=== PATIENT | male | born 1950 | race Caucasian/White ===

== ENCOUNTER 2021-10-05 17:25 | Observation (INO) | payer OTHER, SELFPAY ==
[2021-10-05] VITALS (10 sets, daily range): BP systolic 137–189; BP diastolic 70–95; PULSE 68–84; RESP 15–17; TEMP 36.6; O2SAT 97–100
--- NOTE | ~2021-10-05 | XR_ITS ---
XR chest 2V DATE: 10/05/2021 18:03 INDICATION: Feeling off for one week. Hypertension. History of heart attack, CABG. TECHNIQUE: PA and lateral views COMPARISON: 02/15/2004 PA and lateral chest FINDINGS: Status post sternotomy and aortic valve replacement. Normal heart size. There is aortic arc h calcification as well as calcification of the descending thoracic aorta. Moderate bilateral hyperinflation. No pulmonary infiltrate or consolidation, pleural effusion or pulm onary vascular congestion or pneumothorax. No hilar or mediastinal enlargement. Degenerative spurring mild scoliosis of the thoracic and lumbar spine. Osteoarthritic change at the g lenohumeral joints. Degenerative change at the acromioclavicular joints. IMPRESSION: Status post sternotomy and aortic valve replacement No active cardiopulmonary disease Reviewed, dictated and finalized at location J. ERVATION ASSISTANT
--- NOTE | 2021-10-05 17:53 | ECG_ITS ---
Measurements Intervals [place] Rate: 56 P: 59 AL: 204 QRS: 35 QRSD: 110 T: 65 QT: 384 QTc: 373 Interpretive Statements SINUS BRADYCARDIA WITH SINUS ARRHYTHMIA BORDERLINE AV CONDUCTION DELAY INCOMPLETE RIGHT BUNDLE BRANCH BLOCK BASELINE ARTIFACT- I, II, III, AVR, AVL BORDERLINE ECG Electronically Signed On 10-05-2021 20:29:55 THREAD TOOL GRINDER SET UP OPERATOR by Otilio Lang D.O.
[2021-10-05 18:30] LABS: Basophils Percent Auto 0.3 % (0.2-1.2); Eosinophils Absolute Auto 0.1 K/mm3 (0-0.3); Eosinophils Percent Auto 1.4 % (0-4.4); Hematocrit 41.1 % (42.0-52.0); Hemoglobin 13.7 g/dL (14.0-18.0); Immature Granulocyte Absolute 0.03 K/mm3 (0.00-0.031); Immature Granulocyte Percent A 0.5 % (0-0.5); Lymphocytes Absolute Auto 1.64 K/mm3 (0.9-3.2); Lymphocytes Percent Auto 25.2 % (18.3-44.2); Mean Corpuscular HGB Conc 33.3 g/dl (32-36); Mean Corpuscular Hemoglobin 29.7 pg (26-34); Mean Platelet Volume 9.8 fl (7.4-10.4); Monocytes Absolute Auto 0.5 K/mm3 (0.1-0.6); Monocytes Percent Auto 7.7 % (2.6-8.5); Neutrophils Absolute Auto 4.2 K/mm3 (1.3-6.7); Neutrophils Percent Auto 64.9 % (45.5-73.1); Platelet Count Result 151 k/mm3 (150-375); Red Blood Count 4.62 M/mm3 (4.6-6.20); Red Cell Distribution Width 14.3 % (11.5-14.5); White Blood Count 6.5 K/mm3 (4.5-10.0)
[2021-10-05 18:41] LABS: Alanine Aminotransferase 24 U/L (4-50); Albumin Level 4.6 g/dL (3.5-5.1); Alkaline Phosphatase 126 U/L (38-126); Anion Gap 8 mmol/L (8-16); Aspartate Amino Transferase 22 U/L (17-59); Bilirubin,Total 0.5 mg/dL (0.2-1.3); Blood Urea Nitrogen 16 mg/dL (9-20); Calcium 10.9 mg/dL (8.4-10.2); Carbon Dioxide 27 mmol/L (22-30); Chloride 103 mmol/L (98-107); Estimated CRCL calculation 62 ml/min; Estimated Glomerular Filt Rate > 60; Glucose 91 mg/dL (65-110); Lipase 168 U/L (23-300); Potassium 4.5 mmol/L (3.4-5.0); Sodium 138 mmol/L (137-145)
[2021-10-05 18:44] LABS: INR 0.9
[2021-10-05 18:45] LABS: Partial Thromboplastin Time 28.7 SECONDS (22.3-36.8)
[2021-10-05 18:51] LABS: Troponin I < 0.012 ng/mL (0.000-0.034)
[2021-10-05] MEDS: ASPIRIN 81 MG CHEWABLE TABLET 324 MG PO (20:15)
--- NOTE | 2021-10-05 20:15 | ED.GENADULT ---
HPI - General Adult General Chief complaint: Recheck/Abnormal Lab/Rx Stated complaint: htn Time Seen by Provider: 10/05/21 19:11 Source: patient Mode of arrival: ambulatory Limitations: no limitations History of Present Illness HPI narrative: This is 71 year old male with history of hypertension, CAD s/p stent, hyperlipidemia who presents for evaluation of hypertension. He states he has not felt well over the past couples of weeks. Today he checked his blood pressure for further time in several weeks. He states his BP was elevated to systolic 180s and 30 minutes later it was 220. He decided to come to ER due to elevated blood pressure. He reports intermittent episodes of midsternal nonradiating discomfort for weeks. He states this discomfort is not exertional. He does not have any chest discomfort currently. He also reports he could be watching tv when he gets warm feeling all over and he has tingling all over. He has been dealing with alot of stress over past several weeks, and he has been having dental and procedures performed. He denies shortness of breath, nausea, vomiting or abdominal pain. He denies reports diarrhea. He denies any blurred vision. Related Data Allergies Allergy/AdvReac Type Severity Reaction Status Date / Time No Known Allergies Allergy Verified 10/05/21 19:16 Review of Systems Review of Systems: All systems reviewed & are unremarkable except as noted in HPI and below PMFSH Past Medical History Medical History (Updated 10/06/21 @ 01:51 by Yanique Calderon MD) Coronary artery disease Diabetes mellitus Hypertension Hypothyroid Surgical History Surgical History (Updated 10/05/21 @ 20:22 by Yanique Calderon MD) H/O aortic valve replacement History of coronary artery stent placement Social History Social History (Updated 10/05/21 @ 20:22 by Yanique Calderon MD) Smoking status: Former smoker Exam Const: General: no acute distress and alert Orientation/consciousness: patient oriented x3 HENMT: Head: normocephalic and atraumatic Face and sinus: normal facial exam, sinuses nontender and face symmetric Mouth: Yes Normal oral and palatal mucosa present, Yes lip normal, Yes oropharynx normal and Yes moist mucous membranes Eyes: Pupils: Equal, round and reactive pupils present EOM: EOMs intact bilaterally Chest: Chest palpation & inspection: normal inspection of the chest Resp: Effort & Inspection: normal respiratory effort and no retractions Auscultation: clear to auscultation bilaterally Cardio: Rate: regular rate Rhythm: regular rhythm Heart sounds: no murmurs GI: GI Palp: Yes Soft to palpation, No Tenderness to palpation present (GI) and No Guarding due to palpation present (GI) Auscultation: normal bowel sounds Skin: General skin exam: normal color Neuro: General: patient oriented x3, moves all extremities and CN's II-XI intact bilaterally Psych: Mental Status: mental status grossly normal Affect: normal affect Course Reevaluation(s) Reevaluation #1: I discussed with patient that he has been found to have covid. Patient reports he tested positive for on 09/10/21. He got tested became he had family coming over for macy. Patient has not felt well for a few weeks so this may due to covid. Date: 10/06/21 Time: 23:30 Consultations Consultation #1: Dr. Callahan agrees to consult on patient for chest pain Date: 10/05/21 Time: 21:41 Consultation #2: Dr. Crawley accepts patient for observation Date: 10/05/21 Time: 22:10 Vital Signs Vital signs: Vital Signs Temperature 98 F 10/05/21 17:37 Pulse Rate 68 10/05/21 17:37 Respiratory Rate 15 10/05/21 17:37 Blood Pressure 189/95 H 10/05/21 17:37 Pulse Oximetry 100 10/05/21 17:37 Temperature 98 F 10/05/21 17:37 Pulse Rate 69 10/06/21 01:16 Respiratory Rate 16 10/06/21 01:16 Blood Pressure 140/77 10/06/21 01:16 Pulse Oximetry 98 10/06/21 01:16 Medical Decision Making Vi
[2021-10-05 20:38] LABS: Add Urine Microscopic? YES; Appearance Urine Clear (Clear); Bilirubin Urine Negative (Negative); Blood Urine Negative (Negative); Color Urine Straw (Yellow); Glucose Urine UA Negative (Negative); Ketones Urine Negative (Negative); Leukocyte Esterase Ur Negative LEU/UL (Negative); Mucus Urine Rare /lpf; Nitrate Urine Negative (Negative); Protein Urine Negative (Negative); Specific Grav Ur 1.008 (1.001-1.035); Urobilinogen Urine Negative mg/dL (<2.0); WBC Urine 0-3 /hpf
[2021-10-05 21:01] LABS: Troponin I < 0.012 ng/mL (0.000-0.034)
[2021-10-05 23:31] LABS: SARS-CoV-2 RNA PCR Positive
[2021-10-05 23:42] LABS: Troponin I < 0.012 ng/mL (0.000-0.034)
[2021-10-06] VITALS (9 sets, daily range): BP systolic 133–200; BP diastolic 69–82; PULSE 64–80; RESP 14–16; TEMP 36.1–37.2; O2SAT 97–100; BMI 39.4; BMI 54.4
[2021-10-06 00:58] LABS: Glucose Point of Care 167 mg/dl (65-105)
--- NOTE | 2021-10-06 01:55 | ADMGEN ---
This patient, Chapito Skinner, was admitted to IMU Room 209-01 at 0152 on 10/06/21. Patient/family oriented to hospital policies and general routines including ID bracelet, bed and alarms, visiting hours, pain management, procedures, bathroom and other care routines, personal items, smoking policy, room service/diet, and visiting hours. Information on how to activate the Rapid Response Team has been discussed. Patient/Family are encouraged to report perceived risks to care and to ask questions if they do not understand what they are told or what they should do.
--- NOTE | 2021-10-06 08:47 | PM.CNCAR ---
Assessment and Plan Assessment and plan (1) Hypertensive urgency: Code(s): I16.0 - Hypertensive urgency Status: Acute Assessment and Plan: 71-year-old male with CAD, history of multiple PCI/stent placements at outside hospital-intervention report not available, hypertension, type 2 diabetes mellitus. Patient admitted to the hospital with not feeling well , and elevated blood pressures. Patient found to have COVID-19 infection. Patient has been ruled out for [place] by serial negative cardiac biomarkers. Blood pressures have improved. -resume home antihypertensives. Low-salt diet counseling was done. -resume aspirin, statin. -patient advised to follow-up with his primary brim welt sewing machine operator after hospital discharge. Any further cardiac evaluation/testing can be done as an outpatient. (2) COVID-19: Code(s): U07.1 - COVID-19 Status: Acute Assessment and Plan: Patient found to have COVID-19 infection. Currently does not have any major symptoms and is on room air. Management as per primary team. Patient is anticipated to be discharged home. (3) CAD (coronary artery disease): Code(s): I25.10 - Atherosclerotic heart disease of [place] coronary artery without angina pectoris Status: Acute Assessment and Plan: Stable at present. Serial troponins are negative. Resume antiplatelet treatment and statins. History of Present Illness History of Present Illness Consult date/time: 10/06/21 08:47 DATE OF CONSULT: 10/06/2021 REASON FOR CONSULT: Coronary artery disease REQUESTING PHYSICIAN:Yanique Calderon MD CHIEF COMPLAINT: Chest pain HPI: 71-year-old male with CAD, history of multiple PCI/stent placements at outside hospital-intervention report not available, hypertension, type 2 diabetes mellitus. Patient presented to [facility] Room on 10/05/2021 with complaints of not feeling well and elevated blood pressures. Patient noted that his blood pressure was elevated at home with systolic blood pressure ranging between 180-220 mmHg. Blood pressure in the ER was 189/95 mmHg. He had mild discomfort in the chest which has completely resolved. He denied any fever or chills. Patient states that he was vaccinated against COVID 19, however has not had booster dose yet. He reports compliance with antihypertensives. Patient was found to be COVID 19 positive and is currently in isolation. He denies any ongoing symptoms including chest pain, shortness of breath, palpitation or dizziness. Patient is eager to go home. EKG on my personal evaluation shows sinus rhythm, subtle ST elevation in isolated lead III, ST depression in 1 and aVL. Three sets of troponins negative. Chest x-ray showed Status post sternotomy and aortic valve replacement; no active cardiopulmonary disease. Reason For Visit: hypertension, chest discomfort Review of Systems Review of Systems: General: Positive for fatigue Psychological: Negative for anxiety, depression Ophthalmic: negative for loss of vision ENT: Negative for epistaxis, headaches Allergy and immunology: Negative for hives, nasal congestion Hematologic and lymphatic: Negative for overt bleeding problems Endocrine: Negative for hot flashes, palpitations Respiratory: Negative for cough, hemoptysis Cardiovascular: Mild chest discomfort at presentation which has resolved now Gastrointestinal: Negative for abdominal pain, nausea, vomiting, hematochezia Musculoskeletal: Negative for myalgia, joint pains Neurological: Negative for weakness Dermatological: Negative for rash, skin discoloration PMFSH Past Medical History Medical History Coronary artery disease Diabetes mellitus Hypertension Hypothyroid Surgical History Surgical History H/O aortic valve replacement History of coronary artery stent placement Social History Social History (Reviewed 0
[2021-10-06 08:53] LABS: Glucose Point of Care 87 mg/dl (65-105)
--- NOTE | 2021-10-06 09:54 | PM.SD2 ---
Same Day Admit/Disch: HPI History of Present Illness Chief complaint: hypertension, chest discomfort Narrative: Chapito Skinner is a 71 year old male with hx of CAD, DM and HTN here for elevated blood pressure. Patient was feeling tired early August and underwent a COVID test which was positive. He has been vaccinated with LessThan3 COVID vaccine with his last dose was in November 2020. He has not had a booster. He has been feeling well up and about a week or 2 ago when he felt ?nervous and jittery?. He denies any anosmia, dysgeusia, cough, shortness of breath, abdominal pain, melena, hematochezia, dysuria, hematuria, rash, fever. He has been having chills with night sweats but the night sweats appear to be more chronic. His stools are blackish in color but he takes iron. He is up-to-date with his colonoscopy. He does have claudication symptoms right greater than left lower extremity and has known PAD. He has been having diarrhea off and on for the past week but with 1 bowel movement a day. He has been having a ?heartburn like? symptoms over the past week that is difficult for him to describe. He denies any sour taste in his mouth. Symptoms occur at rest and are fleeting at best. He was last seen by his business solutions consultant about 9 months ago and a blood pressure medication was added. He was supposed to check his blood pressure regularly but has not done so. He does have a blood pressure cuff at home that he had not used for about 9 or 10 months up until a day or so prior to this admission. He did began to check his blood pressure and it was high at a systolic of 220. He has been under increasing stress related to recent procedures such as having eye injection and tooth extraction. He is compliant with his antihypertensive medications. He has a history of coronary disease and had [place] in 2010 with 4 stents placed. Two years later he underwent aortic valve replacement with bioprosthetic for aortic stenosis. He is not had a recent stress test and actually has refused stress test because walking stress test makes his blood pressure go up and a chemical stress test ?stresses me out?. He has a card in his wallet that shows that he had a mid LAD stent, distal circ stent x2 and a proximal circumflex stent placed in 2010. Patient has diabetes and checks his glucose 3-4 times a day and is been well controlled. He has sublingual nitroglycerin at home but has not used this for over 2 years. Because of the elevated blood pressure, patient presented to the emergency room for evaluation. In the emergency room, patient's blood pressure was 189/95. Troponin negative x3. COVID PCR was positive. Chest x-ray is clear. EKG showed sinus bradycardia with sinus arrhythmia and borderline AV conduction delay with incomplete right bundle-branch. He was given aspirin, Zofran and admitted for further care. [facility] Past Medical History Medical History (Updated 10/06/21 @ 10:12 by Edwin Ireland MD) Aortic stenosis Coronary artery disease Diabetes mellitus Hyperlipidemia Hypertension Hypothyroid Macular degeneration PAD (peripheral artery disease) Surgical History Surgical History (Updated 10/06/21 @ 10:12 by Edwin Ireland MD) H/O aortic valve replacement History of coronary artery stent placement History of surgery on wrist Hx of appendectomy Hx of knee surgery Family History Family History (Updated 10/06/21 @ 10:12 by Edwin Ireland MD) Sibling Pancreas cancer Social History Social History (Updated 10/06/21 @ 10:13 by Edwin Ireland MD) Social History: Patient smoked up to a pack a day for about 35 years. He quit tobacco use about 15 years ago. Drinks 2-3 alcoholic drinks per year. No drug use. Full code. He lives at home with his . He nominated his to be the individual would make medical decisions for him if he is unable Smoking status: Former smoker Alcohol intake: former Substance use: former Substance use type: does not u
--- NOTE | 2021-10-06 10:57 | PC.NURSE ---
patient refused RN to give med and states he will take them when bring them with she picked him up.
== END 2021-10-06 11:18 | disposition home or self-care (01) ==
LOC: ANHED 21:36 → ANHIMU 10-06 01:51
PROVIDERS: Admitting Provider Internal Medicine; Emergency Provider General Practice; PCP Family Medicine Sports Medicine; Visit Provider Internal Medicine
DX: U07.1 COVID-19 (principal); I16.0 Hypertensive urgency; I10 Essential (primary) hypertension; R07.89 Other chest pain; I25.10 Atherosclerotic heart disease of native coronary artery without angina pectoris; E78.5 Hyperlipidemia, unspecified; E11.51 Type 2 diabetes mellitus with diabetic peripheral angiopathy without gangrene; I35.0 Nonrheumatic aortic (valve) stenosis; H35.30 Unspecified macular degeneration; E03.9 Hypothyroidism, unspecified; Z95.4 Presence of other heart-valve replacement; Z95.5 Presence of coronary angioplasty implant and graft; Z87.891 Personal history of nicotine dependence; Z79.82 Long term (current) use of aspirin; Z79.84 Long term (current) use of oral hypoglycemic drugs
CPT/HCPCS: 36415; 71046; 80053; 81001; 82948; 83690; 84484; 85025; 85610; 85730; 93005; 99285; A9270; C9803; G0378; U0003; U0005

== ENCOUNTER 2024-07-07 10:00 | Outpatient (CLI) | payer OTHER, SELFPAY ==
--- NOTE | ~2024-07-07 | NM_ITS ---
EXAMINATION: NM parathyroid w imaging DATE: 07/07/2024 14:27 INDICATION: Parathyroid adenoma. TECHNIQUE: 18.7 mCi Tc99m sestamibi was administered intravenously. Anterior images of the neck were obtained immediately and at 2 hours. SPECT images of the neck were obtained. COMPARISON: None. FINDINGS: There is focal persistent increased activity at posterior inferior left thyroid lobe. IMPRESSION: 1. Persistent increased activity at posterior inferior left thyroid lobe, consistent with a parathyro id adenoma. Reviewed, dictated and finalized at location A. IMPRESSION: 1. Persistent increased activity at posterior inferior left thyroid lobe, consi stent with a parathyroid adenoma.
== END 2024-07-07 10:01 | disposition home or self-care (01) ==
PROVIDERS: PCP Family Medicine; Visit Provider Nurse Practitioner Family
DX: E21.0 Primary hyperparathyroidism (principal); R82.994 Hypercalciuria
CPT/HCPCS: 78070; A9500

== ENCOUNTER 2024-11-02 13:11 | Outpatient (CLI) | payer OTHER, SELFPAY ==
--- NOTE | ~2024-11-02 | DEXA_ITS ---
Bone Density Report Name: ESAU KELLER Age: 74 Sex: Male Ethnicity: White Date of : 1950 Indication: screening for osteoporosis; height loss; Referring Provider: TASHI JACOBO Study: Bone densitometry was performed. Exam Date: November 02, 2024 Accession number: [id number] Bone Density: Region BMD T-score Z-score Classification AP Spine(L1-L4) 1.183 0.8 1.9 Normal Femoral Neck (Left) 0.755 -1.3 0.0 Osteopenia Total Hip (Left) 1.105 0.5 1.3 Normal Femoral Neck (Right) 0.760 -1.2 0.1 Osteopenia Total Hip (Right) 1.000 -0.2 0.6 Normal Femoral Neck Mean 0.758 -1.3 0.1 Osteopenia Total Hip Mean 1.052 0.1 0.9 Normal World Health Organization criteria for BMD impression classify patients as: Normal (T-score at or above -1.0), Osteopenia (T-score between -1.0 and -2.5), or Osteoporosis (T-score at or below -2.5). 10-year Fracture Risk(1): Major Osteoporotic Fracture 5.6% Hip Fracture 1.4% Reported Risk Factors: [place] (), Neck BMD=0.755, BMI=35.1 (1) FRAX(R) Version 3.08. Fracture probability calculated for an untreated patient. Fracture probability may be lower if the patient has received treatment. Clinical Information Provided by Patient: Has used the following medications: Vitamin D Patient maximum height was 69 Drinks caffeinated beverages Impression: The patient has low bone mass, based on the Left Femoral Neck T-score. Discussion: BONE DENSITY IS LOW AT ONE OR MORE SKELETAL SITES. This patient's lowest T-score is low at one or more skeletal sites. It meets the World Health Organization's (WHO) criteria for ?low bone mass? (T-score between -1.0 and -2.5). The patient's 10-year risk of fracture as calculated by FRAX is less than the threshold where pharmacological therapy is recommended by the National Osteoporosis Foundation (NOF). However, all treatment decisions require clinical judgment and consideration of individual patient factors, including patient preferences, comorbidities, previous drug use, risk factors not captured in the FRAX model (e.g., frailty, falls, vitamin D deficiency, increased bone turnover, interval significant decline in bone density) and possible under or overestimation of fracture risk by FRAX. The patient should follow a healthful lifestyle (good nutrition with adequate calcium and vitamin D, and appropriate weight-bearing exercise). Follow-Up: Consider repeating this study in 2 to 3 years to reassess this patient's status, or sooner if there is some new clinical indication. Reported by: CHLOE on 11/02/2024 1:31:00 PM. Reviewed, dictated and finalized at location A.
--- OUTSIDE RECORDS SUMMARY | 2024-11-02 13:27 | XMS_ITS | Clinical Summary ---
Author Organization [facility] [employer] Address [address] [facility] [place] [address] Care Team Providers Care [employer] Name Role Phone Chilo Bhatt MD Primary Care Provider [phone] Source Comments [facility] [employer],non-owned Affiliates and Associated Physician Practices is amultiple site organization consisting of ambulatory clinics and hospital sitesin [place], [place], [place] and [place]. This disclosure is being madepursuant to the Care Everywhere program and may not contain all information available regarding this patient. Last updated 18.[facility] [employer] Allergies No known active allergies Medications * Be aware that medications may not be up to date on this document. Alwaysverify current medications with the patient. Medication Sig Dispensed Refills Start Date End Date Status aspirin (ASPIRIN) 81 MG tablet Take 1 (one) tablet by mouth once daily 4 Active Cholecalciferol (VITAMIN D3) 400 UNITS tablet Take 1 (one) tablet by mouth once daily Active cilostazol (PLETAL) 100 MG tablet Take 1 (one) tablet by mouth 2 times daily 7 Active ONETOUCH ULTRA TEST STRIPS test strip 8 Active metoprolol tartrate (LOPRESSOR) 25 MG tablet Take 1 (one) tablet by mouth 2 times daily Active zolpidem CR (AMBIEN CR) 12.5 MG tablet Take 1 (one) tablet by mouth nightly as needed 8 Active atorvastatin (LIPITOR) 80 MG tablet TAKE 1 TABLET DAILY 90 tablet 3 0 Active SYNTHROID 112 MCG tablet 2 Active metFORMIN (GLUCOPHAGE) 1000 MG tablet TAKE 1 TABLET TWICE A DAY WITH MEALS 1 Active nitroGLYCERIN (Nitrostat) 0.4 MG tablet Dissolve 1 (one) tablet under the tongue every 5 minutes as needed for Angina 25 tablet 4 Active Additional Information Patient not taking.Reason: Other (not needed), Reported on 10/26/2024 amLODIPine (Norvasc) 10 MG tablet TAKE 1 TABLET DAILY 90 tablet 3 4 Active isosorbide mononitrate CR 24hr (Imdur) 60 MG tabletIndication s: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 (HCC),Angina pectoris (HCC) TAKE 1 TABLET DAILY 90 tablet 3 4 Active glimepiride (Amaryl) 2 MG tablet Take 1 (one) tablet by mouth daily with breakfast 4 Active ipratropium (Atrovent) 0.06 % nasal spray [place] 2 (two) sprays into each nostril 3 times daily 15 mL 3 5 Active azelastine (Astelin) 0.1 % nasal spray [place] 1 (one) spray into each nostril 2 times daily 90 mL 4 5 Active Edarbyclor 40-25 MG tablet TAKE 1 TABLET BY MOUTH ONCE DAILY 90 tablet 2 5 Active azilsartan-chlor thalidone (Edarbyclor) 40-25 MG tablet Take 1 (one) tablet by mouth once daily 90 tablet 2 4 10/27/19 25 Discontinued Ozempic, 1 MG/DOSE, 4 MG/3ML pen 4 10/26/19 25 Discontinued(Lis t Clean-Up) Active Problems Problem Noted Date Diagnosed Date Primary hypertension 10/13/2021 Assessment & Plan (11/14/2021 11:40 AM REIKI PRACTITIONER): Improved with SBP in the 110-150's at home. Continue Imdur 60 mg Norvasc 10mg daily, Edarbyclor 40/12.5mg BID, Metoprolol 25mg BID. Log BP and follow up with Dr. Quintana in clinic in january as previously scheduled. Assessment & Plan (10/13/2021 11:53 AM REIKI PRACTITIONER): Uncontrolled. Continue Imdur 60 mg Norvasc 10mg daily, Stop lisinopril and HCTZ. Start Edarbyclor 40/12.5mg BID, Metoprolol 25mg BID. Log BP and follow up with Mercedes in 1 month, [facility]. Samples of Edarbyclor given and copay card printed for pt to present to his pharmacy. Mya's did send a PA and I asked that he call with copay card. Should be 25 dollars a month with copay card. 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 Doing well and denies chest pain, no ischemia concerns at this time. Continue ASA, statin and BB. PCP to consider SGLT2 give CV benefits, in the future as pt has been struggling with his BS more recently per his report. Assessment & Plan (10/13/2021 11:54 AM REIKI PRACTITIONER): With PCI in the past in 2017. Doing well and denies chest pain, ischemia concners at this time. Continue ASA, statin and BB. PCP to consider SGLT2 in the future. S/P AVR 10/15/2018 Assessment & Plan (11/14/2021 11:37 AM REIKI PRACTITIONER): ECHO in January 2020. Stable. Assessment & Plan (10/13/2021 11:46 AM REIKI PRACTITIONER): ECHO in January 2020. Stable. Aortic valve disorder 10/15/2018 PAD (peripheral artery disease) 03/20/2018 Encounters Date Type Department Care Team Description 10/27/2024 Refill [facility] - Cardiology [address] [facility] [place] [address] [place] [address] Aster Quintana MD Refill Request 10/26/2024 10:02 AM REIKI PRACTITIONER - 10/26/2024 11:59 PM REIKI PRACTITIONER Hospital Encounter [facility] OP [facility] [address] [place] [address] Seven Lakhani MD Discharge Disposition: Home or Self Care 10/26/2024 9:37 AM REIKI PRACTITIONER - 10/26/2024 10:01 AM REIKI PRACTITIONER Hospital Encounter [facility] EKG/HOLTER [address] [place] [address] Seven Lakhani MD Discharge Disposition: Home or Self Care 10/26/2024 9:13 AM REIKI PRACTITIONER - 10/26/2024 9:36 AM [facility] Hospital Encounter [facility] PAT [address] [place] [address] Seven Lakhani MD Otolaryngology Discharge Disposition: Home or Self Care 10/26/2024 Travel 10/22/2024 Telephone [facility] - ENT [address] [place] [phone] September Surgery Scheduling 10/20/2024 Orders Only [facility] - ENT [address] [place] [phone] Seven Lakhani MD Hyperparathyroidism (HCC) 10/20/2024 Telephone [facility] - ENT [address] [place] [phone] Seven Lakhani MD Surgery Scheduling 10/19/2024 10:00 AM REIKI PRACTITIONER Office Visit [facility] - ENT [address] [place] [phone] Carlin Mayo MD Rhinitis, unspecified type (Primary Dx); Nasal congestion; Nasal septal spur 10/19/2024 Travel 09/11/2024 10:30 AM REIKI PRACTITIONER Office Visit [facility] ENT [address] [place] [phone] Seven Lakhani MD Primary hyperparathyroidism (HCC) (Primary Dx) 09/11/2024 Travel 09/06/2024 Refill [facility] - Cardiology [address] [facility], [facility] [address] [place] [address] Aster Quintana MD Refill Request from Last 3 Months Immunizations Name Administration Dates Next Due Covid Pfizer primary monoval ent 12+ yr 0.3mL Purple cap 12/03/2020,11/12/2020 FLU VACCINE TRI IIV3 SPLIT IM (FLUVIRIN) 012 INFLUENZA VACCINE, ADJUVANTE D, QUADR. (FLUAD QUADRIVALENT; 65Y+) (AIIV4) 08/15/2021 INFLUENZA VACCINE, CELL CULT URE, TRIV. (FLUCELVAX TRIVALENT; 6MO+), 0.5 ML (CCIIV3) 08/13/2013 INFLUENZA VACCINE, HIGH-DOSE , TRIV. (FLUZONE HIGH-DOSE TRIVALENT; 65Y+) (HD-IIV3) 07/14/2017 Family History Medical History Relation Name Comments CAD (Coronary Artery Disease) Father Relation Name Status Comments Father Mother Social History Tobacco Use Types Packs/Day Years Used Date Smoking Tobacco: Former Cigarettes Smokeless Tobacco: Never Tobacco Cessation:Counseling Given: Not Answered Comments:Quit smoking in 1999 Alcohol Use Standard Drinks/Week Comments Yes 0 (1 standard drink = 0.6 oz pur e alcohol) occ Sex and Gender Information Value Date Recorded Sex Assigned at Male 10/18/2021 8:10 PM REIKI PRACTITIONER Gender Identity Male 10/18/2021 8:10 PM REIKI PRACTITIONER Sexual Orientation Straight 10/18/2021 8: 10 PM REIKI PRACTITIONER Last Filed Vital Signs Vital Sign Reading Time Taken Comments Blood Pressure 143/69 10/26/2024 9:11 AM REIKI PRACTITIONER Pulse 60 10/26/2024 9:11 AM REIKI PRACTITIONER Temperature 36.7 C (98.1 F) 10/26/2024 9:11 AM REIKI PRACTITIONER Respiratory Rate 16 10/26/2024 9:11 AM REIKI PRACTITIONER Oxygen Saturation 99% 10/26/2024 9:11 AM REIKI PRACTITIONER Inhaled Oxygen Concentration - - Weight 78.1 kg (172 lb 1.6 oz) 10/26/2024 9:11 A M REIKI PRACTITIONER Height 175.3 cm (5' 9 ) 10/26/2024 9:11 AM REIKI PRACTITIONER Body Mass Index 25.41 10/26/2024 9:11 AM REIKI PRACTITIONER Plan of Treatment Upcoming Encounters Date Type Department Care Team (Late st Contact Info) Description 11/05/2024 9:23 AM REIKI PRACTITIONER Hospital Encounter [facility] [address] [place] [address] Seven Lakhani MD [address] DEPT [place] [phone] Surgery General 11/05/2024 9:23 AM REIKI PRACTITIONER Anesthesia Event [facility] [address] [place] [address] Celeste Peters, [employer] ADMINISTRATOR-CREDIT RISK OFFICER [address] [facility] DEPT [place] [address] 11/05/2024 9:23 AM REIKI PRACTITIONER - 11/05/2024 1:08 PM REIKI PRACTITIONER Surgery [facility] [address] [place] [address] Seven Lakhani MD [address] DEPT [place] [phone] Parathyroidectomy 12/07/2024 10:00 AM CDT Office Visit [facility] - ENT [address] [place] [phone] Carlin Mayo MD [facility] [place] [address] 06/29/2025 10:00 AM CDT Ancillary Procedure [facility] - Echosonography [address] [place] [phone] 06/29/2025 11:00 AM CDT Office Visit [facility] - Cardiology [address] [place] [phone] Aster Quintana MD [address] [place] [phone] Scheduled Procedures Name Priority Associated Diagnoses Date/Ti me PARATHYROIDECTOMY Hyperparathyroidism (HCC) 11/05/2024 9:23 AM REIKI PRACTITIONER Health Maintenance Due Date Last Done Comments COLOGUARD (AGES 45-75) - COLON CA SCREENING 1950 COLON MONITORING 1950 COLONOSCOPY - COLON CA SCREENING 1950 CT COLONOGRAPHY - COLON CA SCREENING 1950 Colorectal Cancer Screening 1950 FIT - COLON CA SCREENING 1950 FLEX SIG - COLON CA SCREENING 1950 HEPATITIS C SCREENING 02/10/1968 DTAP/TDAP/TD VACCINES (1 - Tdap) 1969 PNEUMOCOCCAL VACCINE 50+ (1 of 2 - PCV) 1969 ZOSTER VACCINE (1 of 2) 02/15/2000 Respiratory Syncytial Virus (RSV) Vaccine Pt: or over 60 yrs (1 - Risk 60-74 years 1-dose series) 2010 AAA SCREENING 2015 COVID-19 VACCINE (3 - season) 2024 12/03/2020, 11/12/2020 INFLUENZA VACCINE (#1) 2024 , 07/14/2017, 08/13/2013, Additional history exists DEPRESSION SCREENING 09/23/2024 HEPATITIS B VACCINE Aged Out No longe r eligible based on patient's age to complete this topic HIB VACCINE Aged Out No longer eligi ble based on patient's age to complete this topic HPV VACCINE Aged Out No longer eligi ble based on patient's age to complete this topic MENINGOCOCCAL (Group B) VACCINE Aged Out No longer eligible based on patient's age to complete this topic MENINGOCOCCAL VACCINE Aged Out No lorene violeta eligible based on patient's age to complete this topic Procedures Procedure Name Priority Date/Time Associated Diagnosis Comments TYPE + SCREEN PANEL Routine 10/26/2024 1 0:16 AM REIKI PRACTITIONER Pre-op evaluation CBC W AUTO DIFFERENTIAL Routine 10/26/2024 10:16 AM REIKI PRACTITIONER Pre-op evaluation BASIC METABOLIC PANEL (CALCIUM TOTAL) Routine 10/26/2024 10:16 AM REIKI PRACTITIONER Pre-op evaluation EKG 12-LEAD Routine 10/26/2024 9:06 AM REIKI PRACTITIONER Pre-op evaluation MS NASAL ENDOSCOPY,DX Routine 10/19/2024 10:29 AM REIKI PRACTITIONER Nasal congestion Rhinitis, unspecified type Nasal septal spur from Last 3 Months Results * TYPE + SCREEN PANEL (10/26/2024 10:16 AM REIKI PRACTITIONER) Pathologist [facility] Antibody Screen NEG 11:04 AM [facility] BLOOD BANK LAB ABO Rh O POS 10/26/2024 11:04 AM [facility] BLOOD BANK LAB Blood Bank BLOOD SPECIMEN / Unknown Lab Venipuncture / Unknown 10/26/2024 10:16 AM REIKI PRACTITIONER 10/26/2024 10:24 AM [facility] Seven Lakhani MD LAB - BLOOD BANK ORD ERABLES [facility]LOOD [facility] LAB [address] [place] [address], [facility] [phone] * (ABNORMAL) CBC W/ DIFFERENTIAL (10/26/2024 10:16 AM [facility]) [facility] WBC 5.7 4.0 - 10.7 x10E9/L 10/26/2024 10:55 AM [facility] RBC Count 4.17(L) 4.30 - 5.80 x10E12/L 10/26/2024 10:55 AM [facility] Hemoglobin 12.7(L) 13.3 - 17.5 g/dL 10/26/2024 10:55 AM [facility] Hematocrit 37.2(L) 38.7 - 51.1 % 10/26/2024 10:55 AM [facility] MCV 89.2 80.0 - 98.0 fL 10/26/2024 10:55 AM [facility] MCH 30.5 26.7 - 33.6 pg 10/26/2024 10:55 AM [facility] MCHC 34.1 31.7 - 36.3 g/dL 10/26/2024 10:55 AM [facility] RDW-CV 12.6 11.3 - 14.8 % 10/26/2024 10:55 AM [facility] Platelet Count 174 150 - 420 x10E9/L 10/26/2024 10:55 AM [facility] MPV 10.1 7.8 - 11.4 fL 10/26/2024 10:55 AM [facility] Neutrophil % 61.0 41.0 - 74.0 % 10/26/2024 10:55 AM [facility] Lymphocyte % 29.2 17.0 - 47.0 % 10/26/2024 10:55 AM [facility] Monocyte % 6.7 3.0 - 11.0 % 10/26/2024 10:55 AM [facility] Eosinophil % 2.1 0.0 - 7.0 % 10/26/2024 10:55 AM [facility] Basophil % 0.5 0.0 - 1.6 % 10/26/2024 10:55 AM [facility] Immature Granulocytes % 0.5 0.0 - 1.0 % 10/26/2024 10:55 AM [facility] Neutrophil Absolute 3.44 1.60 - 7.50 x10E9/L 10/26/2024 10:55 AM [facility] Lymphocyte Absolute 1.65 1.00 - 4.40 x10E9/L 10/26/2024 10:55 AM [facility] Monocyte Absolute 0.38 0.15 - 1.00 x10E9/L 10/26/2024 10:55 AM [facility] Eosinophil Absolute 0.12 0.00 - 0.60 x10E9/L 10/26/2024 10:55 AM [facility] Basophil Absolute 0.03 0.00 - 0.13 x10E9/L 10/26/2024 10:55 AM [facility] Blood BLOOD SPECIMEN / Unknown Lab Venipuncture / Unknown 10/26/2024 10:16 AM REIKI PRACTITIONER 10/26/2024 10:30 AM [facility] Seven Lakhani MD LAB - HEMATOLOGY ORD ERABLES [facility] [address] [place] [address], [facility] [phone] * (ABNORMAL) BASIC METABOLIC PANEL (CALCIUM TOTAL) (10/26/2024 10:16 AM [facility]) Pathologist [facility] BUN 15 7 - 26 mg/dL 10/26/2024 11:02 AM [facility] Creatinine 1.04 0.71 - 1.16 mg/dL 10/26/2024 11:02 AM [facility] Sodium 138 136 - 145 mmol/L 10/26/2024 11:02 AM [facility] Potassium 3.8 3.5 - 4.5 mmol/L 10/26/2024 11:02 AM [facility] Chloride 103 98 - 107 mmol/L 10/26/2024 11:02 AM [facility] CO2 27 22 - 29 mmol/L 10/26/2024 11:02 AM [facility] Glucose 123(H) 70 - 99 mg/dL 10/26/2024 11:02 AM [facility] Calcium 10.6(H) 8.4 - 10.2 mg/dL 10/26/2024 11:02 AM [facility] Anion Gap 8 6 - 16 10/26/2024 11:02 AM [facility] BUN/Creatinine Ratio 14 7 - 23 10/26/2024 11:02 AM [facility] Osmolality Calculated 288 275 - 295 mOsm/kg 10/26/2024 11:02 AM [facility] eGFR by CKD-EPI 75(L) >=90 mL/min/1.7 3 m2 10/26/2024 11:02 AM [facility] Blood BLOOD SPECIMEN / Unknown Lab Venipuncture / Unknown 10/26/2024 10:16 AM [facility] 10/26/2024 10:30 AM [facility] Seven Lakhani MD LAB - CHEMISTRY [facility] Organization Address City/State/ZIP Co de Phone Number [address] [address], [facility] [phone] * EKG 12-LEAD (10/26/2024 9:06 AM [facility]) Ventricular Rate 54 BPM [facility] Atrial Rate 54 BPM [facility] P-R Interval 228 ms [facility] QRS Duration ms 98 ms [facility] Q-T Interval ms 410 ms [facility] QTC Calculation (Bezet) 388 ms [facility] Calculated P [place] 50 degrees [facility] Calculated R [place] 63 degrees [facility] Calculated T [place] 70 degrees [facility] Interpretation EKG SINUS BRADYCARDIA WITH MARKED SINUS ARRYTHMIA WITH 1ST DEGREE A-V BLOCK RSR' OR QR PATTERN IN V1 SUGGESTS RIGHT VENTRICULAR CONDUCTION DELAY Confirmed by MATTHEW YEE MD ([id number]) on 10/31/2024 10:26:53 PM [facility] 10/26/2024 9:06 AM REIKI PRACTITIONER 10/31/2024 10:26 PM REIKI PRACTITIONER Seven Lakhani MD ECG ORDERABLES [facility] * MS NASAL ENDOSCOPY,DX (10/19/2024 10:29 AM REIKI PRACTITIONER) Narrative Kunal Klein MD - 10/19/2024 10:29 AM REIKI PRACTITIONER Kunal Klein MD 10/19/2024 10:33 AM Due to the findings on physical examination, in correlation with the patient's symptomatology, the decision was made to perform a procedure today in clinic. Verbal consent obtained prior to starting procedure. Procedure note: Procedure: Rigid Nasal Endoscopy Pre Op Dx: Nasal secretions Post Op: same Anesthesia: Bilateral Nasal Cavities sprayed with Lidocaine and Neosynephrine Detail: Rigid nasal endoscopy performed bilaterally. Note: Septum deviated superiorly and to the left, right septal spur. No masses or lesions seen. Right interior nasal cavity showed turbinate hypertrophy, mucus stranding present. Right middle and superior meatus show pink mucosa with mucus stranding present. Sphenoethmoidal recess inspected showing mucus stranding, intact mucosa. Left interior nasal cavity showed turbinate hypertrophy, mucus stranding present. Left middle and superior meatus show pink mucosa with mucus stranding present. Sphenoethmoidal recess inspected showing mucus stranding, intact mucosa. Carlin Mayo MD PROCEDURE/MINOR DAHL RGICAL ORDERABLES from Last 3 Months Care Teams [employer] Relationship Specialty Start Date End Date Chilo Bhatt MD [address] [place] [address] PCP - General Family Medicine 02/06/22
--- OUTSIDE RECORDS SUMMARY | 2024-11-02 13:27 | XMS_ITS | Clinical Summary ---
Author Organization [facility] [address] Address [address] [place] [address] Care Team Providers Care Insurance Business Analyst Name Role Phone Chilo Bhatt MD Primary Care Provider [phone] Allergies No known active allergies Medications cilostazol (PLETAL) 100 mg tablet take 1 tablet by oral route 2 times every day 1/2 hour before or 2 hours after breakfast and dinner 0 0 7 Active nitroglycerin (NITROSTAT) 0.4 mg SL tablet 0 7 Active cholecalciferol (VITAMIN D-3) 400 unit capsule Act akira aspirin 81 mg tablet Take 1 tablet (81 mg total) by mouth daily Active metoprolol (LOPRESSOR) 25 mg tablet Take 1 tablet (25 mg total) by mouth 2 (two) times a day Active zolpidem CR (AMBIEN CR) 12.5 mg CR tabletIndication s:Insomnia Take 1 tablet (12.5 mg total) by mouth nightly as needed for sleep Active atorvastatin (LIPITOR) 80 mg tablet 8 Active isosorbide mononitrate ER (IMDUR) 60 mg 24 hr tablet Take 1 tablet (60 mg total) by mouth daily 9 Active amLODIPine (NORVASC) 10 mg tablet Take 1 tablet (10 mg total) by mouth daily 1 Active blood-glucose meter kit Use to test blood glucose one time each day EX E11.9 1 kit 1 Active lancets (OneTouch Delica Lancets) 30 gauge misc Use to test blood glucose one time each day EX E11.9 100 each 3 12/09/202 1 Active azilsartan med-chlorthalido ne (Edarbyclor) 40-12.5 mg tablet Take 1 tablet by mouth daily 2 Active cyanocobalamin (Vitamin B-12) 1,000 mcg tabletIndication s:Prevention of Vitamin B12 Deficiency Take 1 tablet (1,000 mcg total) by mouth daily Active vit C/E/Zn/coppr/lut ein/zeaxan (PRESERVISION AREDS-2 ORAL) Take by mouth Ac tive ferrous sulfate ER 324 mg (65 mg iron) EC tabletIndication s:Iron Deficiency Anemia Take 65 mg by mouth Active glimepiride (AMARYL) 2 mg tablet TAKE 1 TABLET DAILY 90 tablet 3 3 Active blood glucose diagnostic (Blowtorchuch Verio test strips) strip USE TO TEST BLOOD SUGAR ONCE DAILY 100 strip 3 Active metFORMIN (GLUCOPHAGE) 1,000 mg tablet TAKE 1 TABLET TWICE A DAY WITH MEALS 180 tablet 1 3 Active Lucentis 0.5 mg/0.05 mL syringe 3 Active levothyroxine (SYNTHROID) 125 mcg tablet TAKE 1 TABLET DAILY 90 tablet 1 3 Active Active Problems Problem Noted Date Diagnosed Date PAD (peripheral artery disease) 03/20/2018 Type 2 diabetes mellitus wit hout complication, without long-term current use of insulin ([facility]) 03/01/2017 Hypercalcemia 10/26/2016 Overview (12/27/2016): Hypercalcemia Hypothyroidism 10/26/2016 Overview (12/27/2016): Hypothyroidism, unspecified Arthritis 09/19/2012 CAD (coronary artery disease) 09/19/2012 HTN (hypertension) 09/19/2012 Hyperlipidemia 09/19/2012 Diplopia 01/25/2011 Medical History Medical History Date Comments Chronic coronary artery disease Coronary artery disease Type 2 diabetes mellitus (HCC) Family History Medical History Relation Name Comments Coronary artery disease Father Daphne nary artery disease; Coronary artery disease Mother Daphne nary artery disease; Relation Name Status Comments Father Mother Social History Tobacco Use Types Packs/Day Years Used Date Smoking Tobacco: Never Smokeless Tobacco: Never Tobacco Cessation:Counseling Given: Not Answered Sex and Gender Information Value Date Recorded Sex Assigned at Not on file Legal Sex Male 2:11 AM SAMPLE HAND Gender Identity Not on file Sexual Orientation Not on file Obstetrics History Last Filed Vital Signs Vital Sign Reading Time Taken Comments Blood Pressure 124/76 08/21/2023 9:43 AM SAMPLE HAND Pulse 58 12/02/2019 10:37 AM CDT Temperature - - Respiratory Rate - - Oxygen Saturation - - Inhaled Oxygen Concentration - - Weight 87.1 kg (192 lb) 08/21/2023 9:43 AM SAMPLE HAND Height 172.7 cm (5' 8 ) 08/21/2023 9:43 AM SAMPLE HAND Body Mass Index 29.19 08/21/2023 9:43 AM SAMPLE HAND Plan of Treatment Health Maintenance Due Date Last Done Comments Colon Cancer Screening-Colonoscopy 1950 Hepatitis C Screening 1950 Pneumococcal vaccine 65+ (1 of 2 - PCV) 02/15/1956 DTaP/Tdap/Td Vaccine (1 - Tdap) 1961 Hepatitis B Screening 02/15/1968 Zoster Vaccine (1 of 2) 02/15/2000 Abdominal Aortic Aneurysm (A AA) Screen 2015 Well Visit 65+ 2015 Depression Screening 03/28/2019 03/28/2018, 09/06/20 17 Fall Risk Assessment 03/28/2019 03/28/2018 Albumin Creatinine Ratio, Urine 08/07/2023 2 Lipid Panel 08/07/2023 08/07/2022, 05/25, 10/06/2020, Additional history exists Dilated Eye Exam 12/11/2023 12/10/2022, , 08/10/2020, Additional history exists Hemoglobin A1C 02/19/2024 08/21/2023, 03/24, 12/18/2022, Additional history exists Influenza Vaccine (#1) 2024 07/14/2017, 2011 eGFR 06/25/2024 06/25/2023, 04/23, 09/06/2022, Additional history exists Foot Exam 08/21/2024 08/21/2023, 03/24, 12/18/2022, Additional history exists Procedures Procedure Name Priority Date/Time Associated Diagnosis Comments POCT HEMOGLOBIN A1C Routine 08/21/2023 9 :40 AM SAMPLE HAND Type 2 diabetes mellitus without complication, without long-term current use of insulin ([facility]) ([facility]) BASIC METABOLIC PANEL Routine 06/25/2023 10:26 AM CDT Hypercalcemia DIABETIC EYE EXAM Routine 12/10/2022 LIPID PANEL Routine 08/07/2022 9:30 AM SAMPLE HAND Type 2 diabetes mellitus without complication, without long-term current use of insulin ([facility]) ([facility]) ALBUMIN CREATININE RATIO, URINE Routine 08/07/2022 9:30 AM SAMPLE HAND Type 2 diabetes mellitus without complication, without long-term current use of insulin ([facility]) ([facility]) DIABETES FOOT EXAM Routine 12/06/2017 from Last 3 Months or Most Recently Relevant to Health Maintenance Results * POCT hemoglobin A1c (08/21/2023 9:40 AM SAMPLE HAND) Hemoglobin A1C, POC 7.9 % Blood 08/21/2023 9:40 AM SAMPLE HAND Gracie Perez MD POINT OF CARE TEST ORDERABLES Final Result * (ABNORMAL) Basic metabolic panel (06/25/2023 10:26 AM CDT) Glucose 187(H) 65 - 139 mg/dL [facility] Comment: Non-fasting reference interval BUN 15 7 - 25 mg/dL [facility] Creatinine 1.26 0.70 - 1.28 mg/dL [facility] eGFR 60 > OR = 60 mL/min/1.7 3m2 [facility] BUN/creat ratio SEE NOTE: 6 - 22 (calc) [facility] Comment: Not Reported: BUN and Creatinine are within reference range. Sodium 138 135 - 146 mmol/L [facility] Potassium, pl 4.2 3.5 - 5.3 mmol/L [facility] Chloride 102 98 - 110 mmol/L [facility] CO2 25 20 - 32 mmol/L [facility] Calcium 10.6(H) 8.6 - 10.3 mg/dL [facility] Blood 06/25/2023 10:2 6 AM CDT 06/25/2023 10:26 AM CDT Narrative [facility] - 06/26/2023 6:56 AM CDT FASTING:NO FASTING: NO Gracie Perez MD LAB BLOOD ORDERABLES Final Res ult Performing Organization Address [facility] Co de Phone Number [facility] [address] [place] [address] * (ABNORMAL) Diabetic Eye Exam (12/10/2022) [facility] Provider HEALTH MAINTENANCE Final Result * Albumin Creatinine Ratio, Urine (08/07/2022 9:30 AM SAMPLE HAND) Creatinine, ur 109 20 - 320 mg/dL [facility] Microalbumin, ur 0.6 See Note: mg/dL [facility] Comment: Reference Range: Reference Range Not established Microalbumin/creat ratio 6 <30 mcg/mg creat [facility] Comment: The ADA defines abnormalities in albumin excretion as follows: Albuminuria Category Result (mcg/mg creatinine) Normal to Mildly increased <30 Moderately increased 30-299 Severely increased > OR = 300 The ADA recommends that at least two of three specimens collected within a 3-6 month period be abnormal before considering a patient to be within a diagnostic category. Urine 08/07/2022 9:30 AM SAMPLE HAND 08/07/2022 9:30 AM SAMPLE HAND Narrative [facility] - 08/08/2022 3:00 PM SAMPLE HAND FASTING:YES FASTING: YES Gracie Perez MD LAB URINE ORDERABLES Final Res ult Performing Organization Address City/[facility]/ZIP Co de Phone Number [facility] [address] [phone] * (ABNORMAL) Lipid panel (08/07/2022 9:30 AM SAMPLE HAND) Cholesterol 112 <200 mg/dL [facility] HDL 33(L) > OR = 40 mg/dL [facility] Triglycerides 230(H) <150 mg/dL [facility] Comment: If a non-fasting specimen was collected, consider repeat triglyceride testing on a fasting specimen if clinically indicated. Genia et al. J. of Clin. Lipidol. 2015;9:129-169. LDL 50 mg/dL (calc) [facility] Comment: Reference range: <100 Desirable range <100 mg/dL for primary prevention; <70 mg/dL for patients with CHD or diabetic patients with > or = 2 CHD risk factors. LDL-C is now calculated using the Cosme-Fernando calculation, which is a validated novel method providing better accuracy than the Friedewald equation in the estimation of LDL-C. Cosme BROOKS et al. JUDY. 2013;310(19): 7983-5840 (http://education.[employer]/faq/GYF066) Chol/HDL ratio 3.4 <5.0 (calc) [facility] Non-HDL, (LDL+VLDL) 79 <130 mg/dL (calc) [facility] Comment: For patients with diabetes plus 1 major ASCVD risk factor, treating to a non-HDL-C goal of <100 mg/dL (LDL-C of <70 mg/dL) is considered a therapeutic option. Blood specimen (specimen) 08/07/2022 9:30 AM SAMPLE HAND 08/07/2022 9:30 AM SAMPLE HAND Narrative [facility] - 08/08/2022 3:00 PM SAMPLE HAND FASTING:YES FASTING: YES us Gracie Perez MD LAB BLOOD ORDERABLES Final Res ult [facility] [address] [phone] * HM DIABETES FOOT EXAM (12/06/2017) [facility] Diabetic Foot Exam Abnormal Historical Provider HEALTH MAINTENANCE Final Result from Last 3 Months or Most Recently Relevant to Health Maintenance Insurance MEDICARE [facility] MEDICARE [facility] MEDICARE Care Teams Insurance Business Analyst Relationship Specialty Start Date End Date Chilo Bhatt MD [address] [place] [address] PCP - General Family Medicine 08/14/21
--- OUTSIDE RECORDS SUMMARY | 2024-11-02 13:27 | XMS_ITS | Patient Health Summary ---
Author Organization [facility] Address [address] [place] [address] Care Team Providers Care Zigzag Stitcher Name Role Phone Chilo Bhatt MD Primary Care Provider [phone] Note from [facility],non-owned Affiliates and Associated Physician Practices is amultiple site organization consisting of ambulatory clinics and hospital sitesin [place], [place], [place] and [place]. This disclosure is being madepursuant to the Care Everywhere program and may not contain all information available regarding this patient. Last updated 18.[facility] Allergies No known active allergies Medications * Be aware that medications may not be up to date on this document. Alwaysverify current medications with the patient. * aspirin (ASPIRIN) 81 MG tablet(Started 11/05/2013) Take 1 (one) tablet by mouth once daily * Cholecalciferol (VITAMIN D3) 400 UNITS tablet Take 1 (one) tablet by mouth once daily * cilostazol (PLETAL) 100 MG tablet(Started 01/21/2017) Take 1 (one) tablet by mouth 2 times daily * ONETOUCH ULTRA TEST STRIPS test strip(Started 03/07/2018) * metoprolol tartrate (LOPRESSOR) 25 MG tablet Take 1 (one) tablet by mouth 2 times daily * zolpidem CR (AMBIEN CR) 12.5 MG tablet(Started 01/31/2018) Take 1 (one) tablet by mouth nightly as needed * atorvastatin (LIPITOR) 80 MG tablet(Started 08/04/2020) TAKE 1 TABLET DAILY 3 refills by 08/04/2021 * SYNTHROID 112 MCG tablet(Started 11/05/2021) * metFORMIN (GLUCOPHAGE) 1000 MG tablet(Started 08/21/2021) TAKE 1 TABLET TWICE A DAY WITH MEALS * nitroGLYCERIN (Nitrostat) 0.4 MG tablet(Started 03/25/2024) Dissolve 1 (one) tablet under the tongue every 5 minutes as needed for Angina * amLODIPine (Norvasc) 10 MG tablet(Started 04/02/2024) TAKE 1 TABLET DAILY 3 refills by 04/02/2025 * isosorbide mononitrate CR 24hr (Imdur) 60 MG tablet(Started 09/07/2024) TAKE 1 TABLET DAILY 3 refills by 09/07/2025 * glimepiride (Amaryl) 2 MG tablet(Started 09/08/2024) Take 1 (one) tablet by mouth daily with breakfast * ipratropium (Atrovent) 0.06 % nasal spray(Started 10/19/2024) Matador 2 (two) sprays into each nostril 3 times daily 3 refills by 10/19/2025 * azelastine (Astelin) 0.1 % nasal spray(Started 10/19/2024) Matador 1 (one) spray into each nostril 2 times daily 4 refills by 10/19/2025 * Edarbyclor 40-25 MG tablet(Started 10/27/2024) TAKE 1 TABLET BY MOUTH ONCE DAILY 2 refills by 10/27/2025 Ended Medications* azilsartan-chlorthalidone (Edarbyclor) 40-25 MG tablet (Started 01/23/2024)(Discontinued) Take 1 (one) tablet by mouth once daily 2 refills by 01/22/2025 * Ozempic, 1 MG/DOSE, 4 MG/3ML pen(Started 03/24/2024)(Discontinued) Active Problems Problem Noted Date Diagnosed Date Primary hypertension 10/13/2021 Coronary artery disease invo lving [place] coronary artery of [place] heart without angina pectoris 10/13/2021 S/P AVR 10/15/2018 Aortic valve disorder 10/15/2018 PAD (peripheral artery disease) 03/20/2018 Immunizations * Covid Pfizer primary monovalent 12+ yr 0.3mL Purple cap(Given 12/03/2020, 11/12/2020) * FLU VACCINE TRI IIV3 SPLIT IM (FLUVIRIN)(Given 07/14/2012) * INFLUENZA VACCINE, ADJUVANTED, QUADR. (FLUAD QUADRIVALENT; 65Y+) (AIIV4)(Given 08/15/2021) * INFLUENZA VACCINE, CELL CULTURE, TRIV. (FLUCELVAX TRIVALENT; 6MO+), 0.5 ML (CCIIV3)(Given 08/13/2013) * INFLUENZA VACCINE, HIGH-DOSE, TRIV. (FLUZONE HIGH-DOSE TRIVALENT; 65Y+) (HD-IIV3)(Given 07/14/2017) Social History Tobacco Use Types Packs/Day Years Used Date Smoking Tobacco: Former Cigarettes Smokeless Tobacco: Never Tobacco Cessation:Counseling Given: Not Answered Comments:Quit smoking in 1999 Alcohol Use Standard Drinks/Week Comments Yes 0 (1 standard drink = 0.6 oz pur e alcohol) occ Sex and Gender Information Value Date Recorded Sex Assigned at Male 10/18/2021 8:10 PM EXECUTIVE COACH Gender Identity Male 10/18/2021 8:10 PM EXECUTIVE COACH Sexual Orientation Straight 10/18/2021 8: 10 PM EXECUTIVE COACH Last Filed Vital Signs Vital Sign Reading Time Taken Comments Blood Pressure 143/69 10/26/2024 9:11 AM EXECUTIVE COACH Pulse 60 10/26/2024 9:11 AM EXECUTIVE COACH Temperature 36.7 C (98.1 F) 10/26/2024 9:11 AM EXECUTIVE COACH Respiratory Rate 16 10/26/2024 9:11 AM EXECUTIVE COACH Oxygen Saturation 99% 10/26/2024 9:11 AM EXECUTIVE COACH Inhaled Oxygen Concentration - - Weight 78.1 kg (172 lb 1.6 oz) 10/26/2024 9:11 A M EXECUTIVE COACH Height 175.3 cm (5' 9 ) 10/26/2024 9:11 AM EXECUTIVE COACH Body Mass Index 25.41 10/26/2024 9:11 AM EXECUTIVE COACH Procedures * TYPE + SCREEN PANEL(Performed 10/26/2024) Performed for Pre-op evaluation * CBC W AUTO DIFFERENTIAL(Performed 10/26/2024) Performed for Pre-op evaluation * BASIC METABOLIC PANEL (CALCIUM TOTAL)(Performed 10/26/2024) Performed for Pre-op evaluation * EKG 12-LEAD(Performed 10/26/2024) Performed for Pre-op evaluation * MS NASAL ENDOSCOPY,DX(Performed 10/19/2024) Performed for Nasal congestion, Rhinitis, unspecified type, Nasal septal spur * ECHO COMPLETE(Performed 06/23/2024) Performed for S/P AVR, Coronary artery disease of [place] artery of [place] heart with stable angina pectoris ([facility]), Angina pectoris ([facility]), S/P aortic valve replacement * ECHO COMPLETE(Performed 06/18/2023) Performed for S/P aortic valve replacement * VAS ARTERIAL ANKLE ARM INDEX(Performed 02/26/2022) Performed for Claudication ([facility]) * ECHO COMPLETE(Performed 02/06/2022) Performed for S/P AVR (aortic valve replacement) * BASIC METABOLIC PANEL (CALCIUM TOTAL)(Performed 10/30/2021) Performed for Primary hypertension * CARDIAC EKG ORDER(Performed 02/15/2021) * PROC EKG IN CLINIC(Performed 02/07/2021) Performed for Coronary artery disease of [place] artery of [place] heart with stable angina pectoris ([facility]) * LIPID PROFILE(Performed 03/17/2020) Performed for PAD (peripheral artery disease) ([facility]) * CARDIAC EKG ORDER(Performed 02/17/2020) * MS TTE W/DOPPLER, COMPLETE(Performed 02/09/2020) Performed for S/P AVR (aortic valve replacement) * PROC EKG IN CLINIC(Performed 02/09/2020) Performed for Coronary artery disease of [place] artery of [place] heart with stable angina pectoris ([facility]) * VAS ARTERIAL ANKLE ARM INDEX(Performed 03/12/2019) Performed for PAD (peripheral artery disease) ([facility]) * CARDIAC STRESS TEST ORDER(Performed 12/02/2018) * MS TTE W/DOPPLER, COMPLETE(Performed 10/15/2018) Performed for S/P AVR * MS TC-99M SESTAMIBI DX PER STUDY DOSE(Performed 10/14/2018) Performed for Coronary artery disease involving [place] coronary artery of [place] heart with other form of angina pectoris ([facility]), PAD (peripheral artery disease) ([facility]) * MS HT MUSCLE IMAGE SPECT, MULT(Performed 10/14/2018) Performed for Coronary artery disease involving [place] coronary artery of [place] heart with other form of angina pectoris ([facility]), PAD (peripheral artery disease) ([facility]) * MS CARDIAC STRESS TST,COMPLETE(Performed 10/14/2018) Performed for Coronary artery disease involving [place] coronary artery of [place] mountain heart with other form of angina pectoris (HCC), PAD (peripheral artery disease) (HCC) * CARDIAC EKG ORDER(Performed 03/12/2018) * VAS ARTERIAL ANKLE ARM INDEX(Performed 01/15/2018) Performed for Claudication ([facility]) * EKG 12-LEAD(Performed 12/24/2017) * LIPID PROFILE(Performed 05/16/2017) * VAS ARTERIAL ANKLE ARM INDEX(Performed 04/04/2017) * VAS CAROTID DUPLEX BILATERAL(Performed 04/04/2017) * CT ANGIO ABDOMEN AORTA W RUNOFF(Performed 12/13/2016) * CREATININE BLOOD - POCT (IP) [facility](Performed 12/13/2016) * GLUCOSE ACCUCHECK(Performed 11/22/2016) * GLUCOSE ACCUCHECK(Performed 11/22/2016) * GLUCOSE ACCUCHECK(Performed 11/21/2016) * GLUCOSE ACCUCHECK(Performed 11/21/2016) * ACT - POCT (IP) [facility](Performed 11/21/2016) * CCL CARDIAC CATH LEFT HEART ONLY(Performed 11/21/2016) * ACT - POCT (IP) [facility](Performed 11/21/2016) * ACT - POCT (IP) [facility](Performed 11/21/2016) * EKG 12-LEAD(Performed 11/21/2016) * PT-INR [facility](Performed 11/13/2016) * BASIC METABOLIC PANEL (CALCIUM TOTAL)(Performed 11/13/2016) * CBC W/O DIFFERENTIAL(Performed 11/13/2016) * LIPID PROFILE(Performed 11/13/2016) * PROC CARDIOLYTE STRESS TEST(Performed 11/12/2016) * PROC STRESS TEST EXERCISE(Performed 11/12/2016) * PROC LEXISCAN CARDIOLYTE STRESS TST(Performed 11/12/2016) * US RETROPERITONEAL LIMITED(Performed 12/02/2015) * ECHO 2D ONLY WO COLOR OR DOPPLER(Performed 11/28/2015) * EKG 12-LEAD(Performed 11/17/2015) * ECHO 2D ONLY WO COLOR OR DOPPLER(Performed 11/17/2013) * LAB HISTORICAL RESULTS-ONBASE(Performed 11/20/2012) * EKG 12-LEAD(Performed 11/13/2012) * EKG 12-LEAD(Performed 11/13/2012) * GLUCOSE ACCUCHECK(Performed 11/08/2012) * CBC W/O DIFFERENTIAL(Performed 11/08/2012) * PHOSPHORUS BLOOD(Performed 11/08/2012) * MAGNESIUM BLOOD(Performed 11/08/2012) * BASIC METABOLIC PANEL (CALCIUM TOTAL)(Performed 11/08/2012) * GLUCOSE ACCUCHECK(Performed 11/07/2012) * GLUCOSE ACCUCHECK(Performed 11/07/2012) * XR CHEST 1VW PORTABLE(Performed 11/07/2012) * EKG 12-LEAD(Performed 11/07/2012) * GLUCOSE ACCUCHECK(Performed 11/07/2012) * XR CHEST 1VW PORTABLE(Performed 11/07/2012) * GLUCOSE ACCUCHECK(Performed 11/07/2012) * PHOSPHORUS BLOOD(Performed 11/07/2012) * MAGNESIUM BLOOD(Performed 11/07/2012) * BASIC METABOLIC PANEL (CALCIUM TOTAL)(Performed 11/07/2012) * CBC W/O DIFFERENTIAL(Performed 11/07/2012) * ECHO COMPLETE(Performed 11/07/2012) * GLUCOSE ACCUCHECK(Performed 11/06/2012) * GLUCOSE ACCUCHECK(Performed 11/06/2012) * GLUCOSE ACCUCHECK(Performed 11/06/2012) * GLUCOSE ACCUCHECK(Performed 11/06/2012) * XR CHEST 1VW PORTABLE(Performed 11/06/2012) * BASIC METABOLIC PANEL (CALCIUM TOTAL)(Performed 11/06/2012) * PHOSPHORUS BLOOD(Performed 11/06/2012) * MAGNESIUM BLOOD(Performed 11/06/2012) * CBC W/O DIFFERENTIAL(Performed 11/06/2012) * GLUCOSE ACCUCHECK(Performed 11/06/2012) * GLUCOSE ACCUCHECK(Performed 11/06/2012) * GLUCOSE ACCUCHECK(Performed 11/05/2012) * GLUCOSE ACCUCHECK(Performed 11/05/2012) * GLUCOSE ACCUCHECK(Performed 11/05/2012) * CBC W/O DIFFERENTIAL(Performed 11/05/2012) * CALCIUM IONIZED WHOLE BLOOD(Performed 11/05/2012) * GLUCOSE ACCUCHECK(Performed 11/05/2012) * GLUCOSE ACCUCHECK(Performed 11/05/2012) * GLUCOSE ACCUCHECK(Performed 11/05/2012) * SVO2 FOR RECALIBRATION(Performed 11/05/2012) * CALCIUM IONIZED WHOLE BLOOD(Performed 11/05/2012) * GLUCOSE ACCUCHECK(Performed 11/05/2012) * PHOSPHORUS BLOOD(Performed 11/05/2012) * MAGNESIUM BLOOD(Performed 11/05/2012) * BASIC METABOLIC PANEL (CALCIUM TOTAL)(Performed 11/05/2012) * CBC W/O DIFFERENTIAL(Performed 11/05/2012) * XR CHEST 1VW PORTABLE(Performed 11/05/2012) * GLUCOSE ACCUCHECK(Performed 11/05/2012) * GLUCOSE ACCUCHECK(Performed 11/05/2012) * GLUCOSE ACCUCHECK(Performed 11/05/2012) * GLUCOSE ACCUCHECK(Performed 11/05/2012) * PHOSPHORUS BLOOD(Performed 11/05/2012) * MAGNESIUM BLOOD(Performed 11/05/2012) * BASIC METABOLIC PANEL (CALCIUM TOTAL)(Performed 11/05/2012) * PT-INR [facility](Performed 11/05/2012) * CBC W/O DIFFERENTIAL(Performed 11/05/2012) * CALCIUM IONIZED WHOLE BLOOD(Performed 11/05/2012) * BLOOD GASES ARTERIAL(Performed 11/05/2012) * SVO2 FOR RECALIBRATION(Performed 11/05/2012) * GLUCOSE ACCUCHECK(Performed 11/05/2012) * GLUCOSE ACCUCHECK(Performed 11/05/2012) * GLUCOSE ACCUCHECK(Performed 11/04/2012) * GLUCOSE ACCUCHECK(Performed 11/04/2012) * GLUCOSE ACCUCHECK(Performed 11/04/2012) * BLOOD GASES ARTERIAL(Performed 11/04/2012) * GLUCOSE ACCUCHECK(Performed 11/04/2012) * XR CHEST 1VW PORTABLE(Performed 11/04/2012) * SVO2 FOR RECALIBRATION(Performed 11/04/2012) * CALCIUM IONIZED WHOLE BLOOD(Performed 11/04/2012) * BLOOD GASES ARTERIAL(Performed 11/04/2012) * MAGNESIUM BLOOD(Performed 11/04/2012) * PHOSPHORUS BLOOD(Performed 11/04/2012) * COMPREHENSIVE METABOLIC PANEL(Performed 11/04/2012) * PTT [facility](Performed 11/04/2012) * PT-INR [facility](Performed 11/04/2012) * CBC W AUTO DIFFERENTIAL(Performed 11/04/2012) * SODIUM WHOLE BLOOD(Performed 11/04/2012) * LACTIC ACID WHOLE BLOOD(Performed 11/04/2012) * POTASSIUM WHOLE BLD(Performed 11/04/2012) * CHLORIDE WHOLE BLOOD(Performed 11/04/2012) * GLUCOSE WHOLE BLOOD(Performed 11/04/2012) * CALCIUM IONIZED WHOLE BLOOD(Performed 11/04/2012) * BLOOD GASES ARTERIAL(Performed 11/04/2012) * PTT [facility](Performed 11/04/2012) * FIBRINOGEN CLAUSS(Performed 11/04/2012) * PT-INR [facility](Performed 11/04/2012) * CBC W/O DIFFERENTIAL(Performed 11/04/2012) * TEG CITRATED KAOLIN (CK)(Performed 11/04/2012) * SODIUM WHOLE BLOOD(Performed 11/04/2012) * LACTIC ACID WHOLE BLOOD(Performed 11/04/2012) * POTASSIUM WHOLE BLD(Performed 11/04/2012) * CHLORIDE WHOLE BLOOD(Performed 11/04/2012) * CALCIUM IONIZED WHOLE BLOOD(Performed 11/04/2012) * GLUCOSE WHOLE BLOOD(Performed 11/04/2012) * BLOOD GASES ARTERIAL(Performed 11/04/2012) * XR CHEST 1VW PORTABLE(Performed 11/04/2012) * GLUCOSE ACCUCHECK(Performed 11/04/2012) * PHOSPHORUS BLOOD(Performed 11/04/2012) * MAGNESIUM BLOOD(Performed 11/04/2012) * BASIC METABOLIC PANEL (CALCIUM TOTAL)(Performed 11/04/2012) * PT-INR [facility](Performed 11/04/2012) * PTT [facility](Performed 11/04/2012) * CBC W/O DIFFERENTIAL(Performed 11/04/2012) * BLOOD GASES ARTERIAL(Performed 11/04/2012) * SVO2 FOR RECALIBRATION(Performed 11/04/2012) * POTASSIUM WHOLE BLD(Performed 11/04/2012) * LACTIC ACID WHOLE BLOOD(Performed 11/04/2012) * SODIUM WHOLE BLOOD(Performed 11/04/2012) * CHLORIDE WHOLE BLOOD(Performed 11/04/2012) * CALCIUM IONIZED WHOLE BLOOD(Performed 11/04/2012) * GLUCOSE WHOLE BLOOD(Performed 11/04/2012) * BLOOD GASES ARTERIAL(Performed 11/04/2012) * CBC W/O DIFFERENTIAL(Performed 11/04/2012) * FIBRINOGEN CLAUSS(Performed 11/04/2012) * PTT [facility](Performed 11/04/2012) * PT-INR [facility](Performed 11/04/2012) * ANTITHROMBIN III ACTIVITY(Performed 11/04/2012) * TEG PLATELET MAPPING(Performed 11/04/2012) * POTASSIUM WHOLE BLD(Performed 11/04/2012) * LACTIC ACID WHOLE BLOOD(Performed 11/04/2012) * SODIUM WHOLE BLOOD(Performed 11/04/2012) * CHLORIDE WHOLE BLOOD(Performed 11/04/2012) * CALCIUM IONIZED WHOLE BLOOD(Performed 11/04/2012) * GLUCOSE WHOLE BLOOD(Performed 11/04/2012) * BLOOD GASES ARTERIAL(Performed 11/04/2012) * ANTITHROMBIN III ACTIVITY(Performed 11/04/2012) * BLOOD GASES ARTERIAL(Performed 11/04/2012) * SODIUM WHOLE BLOOD(Performed 11/04/2012) * LACTIC ACID WHOLE BLOOD(Performed 11/04/2012) * POTASSIUM WHOLE BLD(Performed 11/04/2012) * CHLORIDE WHOLE BLOOD(Performed 11/04/2012) * CALCIUM IONIZED WHOLE BLOOD(Performed 11/04/2012) * GLUCOSE WHOLE BLOOD(Performed 11/04/2012) * ANTITHROMBIN III ACTIVITY(Performed 11/04/2012) * ANTITHROMBIN III ACTIVITY(Performed 11/04/2012) * BLOOD GASES ARTERIAL(Performed 11/04/2012) * SODIUM WHOLE BLOOD(Performed 11/04/2012) * LACTIC ACID WHOLE BLOOD(Performed 11/04/2012) * POTASSIUM WHOLE BLD(Performed 11/04/2012) * CHLORIDE WHOLE BLOOD(Performed 11/04/2012) * CALCIUM IONIZED WHOLE BLOOD(Performed 11/04/2012) * GLUCOSE WHOLE BLOOD(Performed 11/04/2012) * BLOOD GASES JOSHUA(Performed 11/04/2012) * ANTITHROMBIN III ACTIVITY(Performed 11/04/2012) * POTASSIUM WHOLE BLD(Performed 11/04/2012) * LACTIC ACID WHOLE BLOOD(Performed 11/04/2012) * SODIUM WHOLE BLOOD(Performed 11/04/2012) * CHLORIDE WHOLE BLOOD(Performed 11/04/2012) * CALCIUM IONIZED WHOLE BLOOD(Performed 11/04/2012) * GLUCOSE WHOLE BLOOD(Performed 11/04/2012) * BLOOD GASES ARTERIAL(Performed 11/04/2012) * ANTITHROMBIN III ACTIVITY(Performed 11/04/2012) * URINALYSIS W/MICROSCOPIC NO CULTURE(Performed 11/04/2012) * CULTURE URINE(Performed 11/04/2012) * GLUCOSE ACCUCHECK(Performed 11/04/2012) * ANTIBODY SCREEN(Performed 11/04/2012) * CROSSMATCH RBC LEUKOREDUCED(Performed 11/04/2012) * CROSSMATCH RBC LEUKOREDUCED(Performed 11/04/2012) * CROSSMATCH RBC LEUKOREDUCED(Performed 11/04/2012) * CROSSMATCH RBC LEUKOREDUCED(Performed 11/04/2012) * CROSSMATCH RBC LEUKOREDUCED(Performed 11/04/2012) * CROSSMATCH RBC LEUKOREDUCED(Performed 11/04/2012) * CROSSMATCH RBC LEUKOREDUCED(Performed 11/04/2012) * CROSSMATCH RBC LEUKOREDUCED(Performed 11/04/2012) * CROSSMATCH RBC LEUKOREDUCED(Performed 11/04/2012) * CROSSMATCH RBC LEUKOREDUCED(Performed 11/04/2012) * CROSSMATCH RBC LEUKOREDUCED(Performed 11/04/2012) * BLOOD TYPE ABO+ RH PANEL(Performed 11/04/2012) * BASIC METABOLIC PANEL (CALCIUM TOTAL)(Performed 11/04/2012) * PREPARE CRYOPRECIPITATE UNIT(S)(Performed 11/04/2012) * PREPARE PLATELET PHERESIS UNIT(S)(Performed 11/04/2012) * PREPARE FFP UNIT(S)(Performed 11/04/2012) * CT CHEST WO CONTRAST(Performed 11/03/2012) * XR CHEST 2VW(Performed 10/31/2012) * XR PANOREX(Performed 10/31/2012) * TYPE + SCREEN PANEL(Performed 10/31/2012) * PTT [facility](Performed 10/31/2012) * PHOSPHORUS BLOOD(Performed 10/31/2012) * MAGNESIUM BLOOD(Performed 10/31/2012) * HEPATIC FUNCTION PANEL(Performed 10/31/2012) * URINALYSIS REFLEX TO MICROSCOPIC NO CULTURE(Performed 10/31/2012) * CULTURE URINE(Performed 10/31/2012) * VAS CAROTID DUPLEX BILATERAL(Performed 10/31/2012) * BASIC METABOLIC PANEL (CALCIUM TOTAL)(Performed 10/31/2012) * CBC W/O DIFFERENTIAL(Performed 10/31/2012) * PT-INR [facility](Performed 10/31/2012) * CCL CARDIAC CATH LEFT HEART ONLY(Performed 10/31/2012) * ECHO COMPLETE(Performed 10/31/2012) * VAS RIGHT ARTERIAL DUPLEX LE(Performed 03/28/2012) * ECHO 2D ONLY WO COLOR OR DOPPLER(Performed 03/27/2012) * EKG 12-LEAD(Performed 03/21/2012) Results * TYPE + SCREEN PANEL (10/26/2024 10:16 AM EXECUTIVE COACH) Only the most recent of2 resultswithin the time period is included. [facility] Antibody Screen NEG 11:04 AM [facility]OD [facility] ABO Rh O POS 10/26/2024 11:04 AM [facility] Blood Bank BLOOD SPECIMEN / Unknown Lab Venipuncture / Unknown 10/26/2024 10:16 AM EXECUTIVE COACH 10/26/2024 10:24 AM [facility] Seven Lakhani MD LAB - BLOOD BANK ORD ERABLES [facility] BLOOD BANK LAB [address] [place] [address], [facility] [phone] * (ABNORMAL) CBC W/ DIFFERENTIAL (10/26/2024 10:16 AM [facility]) Only the most recent of2 resultswithin the time period is included. [facility] WBC 5.7 4.0 - 10.7 x10E9/L 10/26/2024 10:55 AM [facility] RBC Count 4.17(L) 4.30 - 5.80 x10E12/L 10/26/2024 10:55 AM [facility] Hemoglobin 12.7(L) 13.3 - 17.5 g/dL 10/26/2024 10:55 AM [facility] Hematocrit 37.2(L) 38.7 - 51.1 % 10/26/2024 10:55 AM [facility] MCV 89.2 80.0 - 98.0 fL 10/26/2024 10:55 AM [facility] MCH 30.5 26.7 - 33.6 pg 10/26/2024 10:55 AM [facility] MCHC 34.1 31.7 - 36.3 g/dL 10/26/2024 10:55 AM [facility] RDW-CV 12.6 11.3 - 14.8 % 10/26/2024 10:55 AM [facility] Platelet Count 174 150 - 420 x10E9/L 10/26/2024 10:55 AM [facility] MPV 10.1 7.8 - 11.4 fL 10/26/2024 10:55 AM [facility] Neutrophil % 61.0 41.0 - 74.0 % 10/26/2024 10:55 AM [facility] Lymphocyte % 29.2 17.0 - 47.0 % 10/26/2024 10:55 AM [facility] Monocyte % 6.7 3.0 - 11.0 % 10/26/2024 10:55 AM [facility] Eosinophil % 2.1 0.0 - 7.0 % 10/26/2024 10:55 AM [facility] Basophil % 0.5 0.0 - 1.6 % 10/26/2024 10:55 AM [facility] Immature Granulocytes % 0.5 0.0 - 1.0 % 10/26/2024 10:55 AM [facility] Neutrophil Absolute 3.44 1.60 - 7.50 x10E9/L 10/26/2024 10:55 AM [facility] Lymphocyte Absolute 1.65 1.00 - 4.40 x10E9/L 10/26/2024 10:55 AM [facility] Monocyte Absolute 0.38 0.15 - 1.00 x10E9/L 10/26/2024 10:55 AM [facility] Eosinophil Absolute 0.12 0.00 - 0.60 x10E9/L 10/26/2024 10:55 AM [facility] Basophil Absolute 0.03 0.00 - 0.13 x10E9/L 10/26/2024 10:55 AM [facility] Blood BLOOD SPECIMEN / Unknown Lab Venipuncture / Unknown 10/26/2024 10:16 AM EXECUTIVE COACH 10/26/2024 10:30 AM [facility] Seven Lakhani MD LAB - HEMATOLOGY ORD ERABLES [address] [address], [facility] [phone] * (ABNORMAL) BASIC METABOLIC PANEL (CALCIUM TOTAL) (10/26/2024 10:16 AM [facility]) Only the most recent of11 resultswithin the time period is included. BUN 15 7 - 26 mg/dL 10/26/2024 11:02 AM [facility] Creatinine 1.04 0.71 - 1.16 mg/dL 10/26/2024 11:02 AM [facility] Sodium 138 136 - 145 mmol/L 10/26/2024 11:02 AM [facility] Potassium 3.8 3.5 - 4.5 mmol/L 10/26/2024 11:02 AM [facility] Chloride 103 98 - 107 mmol/L 10/26/2024 11:02 AM [facility] CO2 27 22 - 29 mmol/L 10/26/2024 11:02 AM [facility] Glucose 123(H) 70 - 99 mg/dL 10/26/2024 11:02 AM [facility] Calcium 10.6(H) 8.4 - 10.2 mg/dL 10/26/2024 11:02 AM [facility] Anion Gap 8 6 - 16 10/26/2024 11:02 AM [facility] BUN/Creatinine Ratio 14 7 - 23 10/26/2024 11:02 AM [facility] Osmolality Calculated 288 275 - 295 mOsm/kg 10/26/2024 11:02 AM [facility] eGFR by CKD-EPI 75(L) >=90 mL/min/1.7 3 m2 10/26/2024 11:02 AM [facility] Blood BLOOD SPECIMEN / Unknown Lab Venipuncture / Unknown 10/26/2024 10:16 AM [facility] 10/26/2024 10:30 AM [facility] Seven Lakhani MD LAB - CHEMISTRY ORDE [facility] [address] [place] [address], [facility] [phone] * EKG 12-LEAD (10/26/2024 9:06 AM [facility]) Only the most recent of8 resultswithin the time period is included. [facility] Ventricular Rate 54 BPM [facility] MUSE Atrial Rate 54 BPM [facility] MUSE P-R Interval 228 ms [facility] MUSE QRS Duration ms 98 ms [facility]USE Q-T Interval ms 410 ms [facility] MUSE QTC Calculation (Bezet) 388 ms [facility] MUSE Calculated P [place] 50 degrees [facility] MUSE Calculated R [place] 63 degrees [facility] MUSE Calculated T [place] 70 degrees [facility]USE Interpretation EKG SINUS BRADYCARDIA WITH MARKED SINUS ARRYTHMIA WITH 1ST DEGREE A-V BLOCK RSR' OR QR PATTERN IN V1 SUGGESTS RIGHT VENTRICULAR CONDUCTION DELAY Confirmed by NAKIA WHITAKER, MATTHEW ([id number]) on 10/31/2024 10:26:53 PM [facility] MUSE 10/26/2024 9:06 AM [facility] 10/31/2024 10:26 PM [facility] Seven Lakhani MD ECG ORDERABLES [facility] MUSE * MS NASAL ENDOSCOPY,DX (10/19/2024 10:29 AM [facility]) Narrative Kunal Klein MD - 10/19/2024 10:29 AM [facility] Kunal Klein MD 10/19/2024 10:33 AM Due [...] Carlin Mayo MD PROCEDURE/MINOR DAHL RGICAL ORDERABLES * ECHO COMPLETE (06/23/2024 1:21 PM CDT) Only the most recent of2 resultswithin the time period is included. RVOT diam Doppler 2.561 cm [facility] CV FUJI PACS PV VTI 16.465 cm [facility] CV [facility] I PACS Aortic annulus 2.274 cm [facility] VTI 73.738 cm [facility] I PACS LA size 4.59 cm [facility] PACS ST junction 2.582 cm [facility] CV F U PACS MS [facility] DIASTOLIC VELOCITY 98.967 cm/s [facility] Decel Cass 172.408 cm/s2 [facility] IVSd 2D 1.378 cm [facility] CV [facility] I PACS LVIDd 4.123 cm [facility] CV [facility] I PACS LVIDs 2.189 cm [facility] CV [facility] I PACS LVOT diam 2.022 cm [facility] CV [facility] I PACS LVPWd 1.367 cm [facility] CV [facility] I PACS LV biplane EF 85.4 % [facility] LV A2C EF 86.188 % [facility] CV [facility] I PACS LV A4C EF 84.787 % [facility] CV [facility] I PACS LV EDV A2C 84.953 ml [facility]SM CV FU JI PACS LV EDV A4C 85.75 ml [facility] CV FU JI PACS LV ESV A2C 11.734 ml [facility] CV FU JI PACS LV ESV A4C 13.045 ml [facility]SM CV FU JI PACS LVOT pk adrian 104.924 cm/s [facility] CV F U PACS LVOT VTI 20.765 cm [facility] CV [facility] I PACS RVIDd 3.258 cm [facility] CV [facility] I PACS RVOT pk adrian 73.842 cm/s [facility] CV F U PACS RVOT VTI 13.434 cm [facility] CV [facility] I PACS LA vol BP 66.452 ml [facility] I PACS RA area 20.733 cm [facility] AV mn grad 9.933 mmHg [facility] CV FU JI PACS AV pk adrian 226.08 cm/s [facility] CV [facility] I PACS AV VTI 44.034 cm [facility] CV [facility] I PACS MV A pk adrian 88.759 cm/s [facility] CV F U PACS MV E pk adrian 104.506 cm/s S[facility] CV F UJI PACS MV E' lateral adrian 7.615 cm/s SSM CV FUJI PACS MV pk adrian regurg 551.71 cm/s SSM CV FUJI PACS MR VTI 130.649 cm SSM CV FUJ I PACS MV mn grad 1.461 mmHg SSM CV FU JI PACS MV VTI 26.81 cm SSM CV FUJ I PACS PV pk adrian 100.52 cm/s SSM CV FUJ I PACS TAPSE 1.057 cm SSM CV FUJ I PACS TR pk adrian 250.75 cm/s [facility] CV FUJ I PACS Ascending aorta 3.052 cm SSM CV [facility]I PACS IVC Diam Expiration 1.956 cm [facility] CV FUJI PACS Sinus of Valsalva 3.154 cm SSM CV FU[facility]I PACS LA vol index 0.034 l/m [facility] CV FU[facility]I PACS Myocardial strain charge 2 unitless SSM CV F[facility]I PACS MV lat a' adrian 11.454 cm/s S[facility] CV FUJI PACS MV lat S' adrian 9.02 cm/s SSM CV FUJI PACS RV-mcgovern basal diam 3.336 cm SSM CV FUJI PACS RV-mcgovern mid diam 3.628 cm S[facility] CV FUJI PACS Anatomical Region Laterality Modality Ultrasound 06/23/2024 1:03 PM CDT Narrative 06/23/2024 11:29 PM CDT Summary * Findings consistent with sclerotic valve disease, satisfactory function of 23 mm CE Magna Ease aortic bioprosthesis, at least mild AV patient prosthetic mismatch, minimal regurgitation, sclerotic MV, mild MR, no stenosis, normal LV size and function, mild LVH, LV diastolic dysfunction, elevated LA pressure, mildly dilated LA, modest pulmonary vascular dysfunction, mild TR, mild secondary pulmonary hypertension, normal venous pressure and hyperdynamic LV systolic function. EF 85%. No pericardial effusion, myocardial scare or injury detected. Atheroma in aorta but otherwise normal aorta for age. * No significant change since prior study from 06/18/2023. * The left ventricle is small in size, with hyperdynamic systolic function and an estimated ejection fraction of 85 % by biplane method of disks. Left ventricular wall motion is normal. * Right ventricle is normal in size with moderately reduced systolic function. * The left ventricle is small in size. * Left ventricular systolic function is hyperdynamic with an estimated ejection fraction of 85 % by biplane method of disks. * Left ventricular segmental wall motion is normal. * The left ventricular mass is mildly increased with concentric hypertrophy. Mass index 109 gm/M2. RWT 0.66. * The left ventricular diastolic function is consistent with grade II diastolic dysfunction and increased left atrial filling pressure. Average E/e' ratio 17. * The right ventricle is normal in size. * Right ventricular systolic function is moderately reduced. FAC 31%. TAPSE 1.1-1.3 cm. * The left atrium is mildly dilated with a left atrial volume index of 34 ml/m2 by BP MOD. * The right atrium is borderline dilated. Volume index 31 ml/M2. * There is a 23 mm CE Magna Ease bioprosthetic valve in the aortic position. * The valve is well seated. * AVR indices; a peak velocity of 2.3 m/s, a mean gradient of 10 mmHg, a valve area of 1.49 cm2, an acceleration time of 118 ms, and an AV DI of 0.47. Findings are consistent with mild patient-prosthetic mismatch. Valve area index 0.77 cm2/M2. Stroke volume index 34 ml/M2. Cardiac index 2.5 L/min/M2. * There is no regurgitation. * Mitral valve area by 2D Planimetry is 4.91 cm2. * There is mild mitral valve regurgitation. * Mitral valve effective regurgitant orifice by PISA is 0.04 cm2. * Mitral valve regurgitant volume by pulsed Doppler quantitative flow method is 6.35 ml. * Mitral valve regurgitant fraction by pulsed Doppler quantitative flow method is 9 %. * The tricuspid valve is normal. * Tricuspid valve area by Pressure Halftime Method is 4.56 cm2. * There is trace tricuspid valve regurgitation. * No pulmonary hypertension, estimated pulmonary arterial systolic pressure is 28 mmHg. PVR 2.1 Wood units. * Pulmonary valve area by Continuity Equation is 4.2 cm2. * There is mild pulmonic regurgitation. * Pulmonary valve effective regurgitant orifice by PISA is mild, 0.06 cm2. * Pulmonary valve regurgitant volume by PISA is mild, 4 ml. * Estimated pulmonary arterial mean pressure 15 mmHg. * Estimated pulmonary arterial end diastolic pressure 7 mmHg. * The ascending aorta is normal in size measuring 3.1 cm with an index of 1.6 cm/m2. * Moderate plaque in the ascending and transverse of the aorta. * Normal inferior vena cava with < 50% collapse upon inspiration consistent with normal right atrial pressure, 3 mmHg. * There is no pericardial effusion. 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 Staff Ordering Provider: Aster Quintana MD Balloon Pilot: Jayy Kilpatrick Left Ventricle The left ventricle is small in size. Left ventricular systolic function is hyperdynamic with an estimated ejection fraction of 85 % by biplane method of disks. Left ventricular segmental wall motion is normal. The left ventricular mass is mildly increased with concentric hypertrophy. Mass index 109 gm/M2. RWT 0.66. The left ventricular diastolic function is consistent with grade II diastolic dysfunction and increased left atrial filling pressure. Average E/e' ratio 17. Abnormal cardiac motion (anterior excursion of heart with ventricular systole) consistent with a post-operative state. Right Ventricle The right ventricle is normal in size. Right ventricular systolic function is moderately reduced. FAC 31%. TAPSE 1.1-1.3 cm. Right ventricular wall thickness is normal. Ventricular Septum Intact interventricular septum visualized by 2D and color Doppler imaging. Left Atrium The left atrium is mildly dilated with a left atrial volume index of 34 ml/m2 by BP MOD. No mass or thrombus formation in the left atrium. Right Atrium The right atrium is borderline dilated. Volume index 31 ml/M2. No mass or thrombus formation in the right atrium. Atrial Septum Intact interatrial septum visualized by 2D and color Doppler imaging. Aortic Valve There is a 23 mm CE Magna Ease bioprosthetic valve in the aortic position. The valve is well seated. The leaflets are not well visualized. There is no regurgitation. AVR indices; a peak velocity of 2.3 m/s, a mean gradient of 10 mmHg, a valve area of 1.49 cm2, an acceleration time of 118 ms, and an AV DI of 0.47. Findings are consistent with mild patient-prosthetic mismatch. Valve area index 0.77 cm2/M2. Stroke volume index 34 ml/M2. Cardiac index 2.5 L/min/M2. Pulmonic Valve The pulmonic valve is normal. There is no pulmonic valve stenosis. Pulmonary valve area by Continuity Equation is 4.2 cm2. There is mild pulmonic regurgitation. Estimated pulmonary arterial mean pressure 15 mmHg. Estimated pulmonary arterial end diastolic pressure 7 mmHg. Pulmonary valve regurgitant volume by PISA is mild, 4 ml. Pulmonary valve effective regurgitant orifice by PISA is mild, 0.06 cm2. Mitral Valve The mitral valve is thickened, calcified and displaying restricted posterior leaflet motion. There is no mitral valve stenosis. There is mild mitral valve regurgitation. Mitral valve diastolic mean gradient is 1 mmHg. Mitral valve area by 2D Planimetry is 4.91 cm2. Mitral valve regurgitant volume by PISA is 6 ml. Mitral valve effective regurgitant orifice by PISA is 0.04 cm2. Mitral valve regurgitant volume by pulsed Doppler quantitative flow method is 6.35 ml. Mitral valve regurgitant fraction by pulsed Doppler quantitative flow method is 9 %. Tricuspid Valve The tricuspid valve is normal. There is no significant tricuspid valve stenosis. There is trace tricuspid valve regurgitation. Tricuspid valve area by Pressure Halftime Method is 4.56 cm2. Tricuspid valve diastolic mean gradient is 1 mmHg. No pulmonary hypertension, estimated pulmonary arterial systolic pressure is 28 mmHg. PVR 2.1 Wood units. Inferior Vena Cava The inferior vena cava is normal in size (< 2.1 cm). Normal inferior vena cava with < 50% collapse upon inspiration consistent with normal right atrial pressure, 3 mmHg. Pericardium/Pleural There is no pericardial effusion. Aorta The aortic root at the sinus of Valsalva is normal in size. The ascending aorta is normal in size. The aortic root at the sinus of Valsalva is normal in size measuring 3.2 cm with an index of 1.6 cm/m2. The ascending aorta is normal in size measuring 3.1 cm with an index of 1.6 cm/m2. Moderate plaque in the ascending and transverse of the aorta. Measurements Left Ventricular Outflow Tract Name Value Normal LVOT 2D LVOT Diameter 2.0 cm LVOT Area 3.2 cm2 LVOT Doppler LVOT Peak Velocity 1.0 m/s LVOT Peak Gradient 4 mmHg LVOT Mean Velocity 70.17 cm/s LVOT Mean Gradient 2 mmHg LVOT VTI 20.8 cm LVOT VTI/AV VTI Ratio 0.5 LVOT Stroke Volume 67 ml LVOT Stroke Volume Index 34 ml/m2 35-58 LVOT CO 4.2 l/min LVOT CI 2.1 l/min/m2 Pulmonic Valve Name Value Normal PV 2D RVOT Diameter (2D) 2.6 cm 1.7-2.7 RVOT Doppler RVOT Peak Velocity 0.7 m/s RVOT Peak Gradient 2 mmHg RVOT Mean Gradient 1 mmHg PV Doppler PV Peak Velocity 1.0 m/s PV Peak Gradient 3 mmHg PV Mean Gradient 2 mmHg PV Area (Cont Eq VTI) 4.20 cm2 PV Area Index (Cont Eq VTI) 2.15 cm2/m2 PV Area (Cont Eq Adrian) 3.8 cm2 PV Area Index (Cont Eq Adrian) 1.94 cm2/m2 PV Accel Time 114.18 ms PV Regurgitation Doppler MS End Diastolic Velocity 1.0 m/s MS End Diastolic Gradient 4 mmHg MS Vena Contracta 1.27 mm Mitral Valve Name Value Normal MV 2D/MM MV Area (Planimetry) 4.91 cm2 4.00-5.00 MV Annulus Diameter (PLAX) 2.5 cm MV Annulus Diameter (2C) 3.0 cm MV Annulus Diameter (4C) 3.0 cm <=4.4 MV Doppler MV Peak Gradient 4 mmHg MV Mean Gradient 1 mmHg MV DI (VTI) 1.29 MV Decel Time (CW) 202 ms MV PHT 58 ms MV Area (PHT) 3.76 cm2 4.00-5.00 MV Area (Cont Eq VTI) 2.49 cm2 MV Regurgitation Doppler MR Peak Gradient 122 mmHg MR Volume (Cont Eq) 6 ml MR Fraction (Cont Eq) 9 % MR Vena Contracta 1.8 mm MR ERO (PISA) 0.04 cm2 MR Volume (PISA) 6 ml MR Fraction (PISA) 8 % MV Diastolic Function MV E Peak Velocity 1.0 m/sec MV A Peak Velocity 0.9 m/sec MV E/A 1.2 MV Decel Time (PW) 221 ms MV A Wave Duration 122 ms MV Annular TDI MV Septal s' Velocity 8 cm/s MV Septal e' Velocity 5 cm/s >=8 MV Septal a' Velocity 8 cm/s MV E/e' (Septal) 20 <=8 MV A/a' (Septal) 11 MV Lateral s' Velocity 9 cm/s MV Lateral e' Velocity 8 cm/s >=10 MV Lateral a' Velocity 11 cm/s MV E/e' (Lateral) 14 <=8 MV A/a' (Lateral) 8 MV e' Average 6 cm/s MV E/e' (Average) 17 Tricuspid Valve Name Value Normal TV Doppler TV Peak Velocity 0.8 m/s TV Peak Gradient 2 mmHg TV Mean Gradient 1 mmHg TV PHT 48 ms TV Area (PHT) 4.56 cm2 TV Regurgitation Doppler TR Peak Velocity 2.5 m/s TR Peak Gradient 25 mmHg Estimated PAP/RSVP RA Pressure 3 mmHg <=5 PA Systolic Pressure 28 mmHg <35 RV Systolic Pressure 28 mmHg <36 TV Diastolic Function TV E Peak Velocity 0.8 m/sec TV A Peak Velocity 0.6 m/sec TV E/A 1.2 0.8-2.0 TV Decel Time 167 ms >=120 RV IVRT (PW) 55 ms TV Annular TDI TV Lateral Mnauela s' Velocity 12 cm/s 10-19 TV Lateral Manuela e' Velocity 9 cm/s 8-20 TV Lateral Manuela a' Velocity 12 cm/s TV E/e' 8 2-6 TV A/a' 5 Pulmonary Vessels Name Value Normal Pulmonary Artery Doppler PA End Diastolic Pressure for MS 7 mmHg Pulmonary Veins Pulm Vein Peak Systolic Velocity 57.7 cm/s Pulm Vein Peak Diastolic Velocity 47.3 cm/s Pulm Vein S/D Velocity Ratio 1 Pulm Vein Ar Velocity 30.6 cm/s Pulm Vein Ar Dur - MV A Dur 33 ms Aorta Name Value Normal Ascending Aorta Ao Annulus Diameter 2.3 cm 2.3-2.9 Ao Annulus Diam Index 1.2 cm/m2 1.2-1.4 Sinus of Valsalva Diameter 3.2 cm 2.8-4.0 Sinus of Valsalva Index 1.6 cm/m2 1.3-2.1 Ao Sinotub Junction Diameter 2.6 cm 2.6-3.2 Asc Ao Diameter 3.1 cm 2.2-3.8 Asc Ao Diameter Index 1.6 cm/m2 1.1-1.9 Mid Asc Ao Diameter 3.1 cm Septae/Shunt/Generic Name Value Normal Qp/Qs Qp/Qs 1.0 Venous Name Value Normal IVC/SVC IVC Diameter 2.0 cm <=2.1 IVC Diameter (Insp 2D) 0.5 cm IVC Diameter Percent Change (2D) 73 % >=50 Aortic Valve Name Value Normal AV 2D/MM AV Area (Planimetry) 1.51 cm2 >=3.00 AV Cusp Sep (MM) 1.4 cm AV Doppler AV Peak Velocity 2.26 m/s AV Peak Gradient 20 mmHg AV Mean Gradient 10 mmHg AV VTI 44 cm AV Area (Cont Eq VTI) 1.51 cm2 >=2.00 AV Area (Cont Eq Adrian) 1.49 cm2 AV DI (VTI) 0.47 AV DI (Adrian) 0.46 AV Accel Time 118 ms AV Regurgitation 2D LVOT Area 3.21 cm2 AV Regurgitation Doppler AR Fraction (Cont Eq) 0 % AR Volume (Cont Eq) 0 ml Ventricles Name Value Normal LV Dimensions 2D/MM IVS Diastolic Thickness (2D) 1.4 cm 0.6-1.0 LVID Diastole (2D) 4.1 cm 4.2-5.8 LVPW Diastolic Thickness (2D) 1.4 cm 0.6-1.0 LVID Systole (2D) 2.2 cm 2.5-4.0 LV Systolic Endo Area 4 cm2 LV Diastolic Endo Area 13 cm2 LV Systolic Epic Area 29 cm2 LV Diastolic Epic Area 38 cm2 LV Mass (2D Cubed) 212 g 88-224 LV Mass Index (2D Cubed) 109 g/m2 49-115 Relative Wall Thickness (2D) 0.66 <=0.42 LV Fractional Shortening/Ejection Fraction 2D/MM LV Fractional Shortening (2D) 41 % 25-43 LV EF (2D Teicholz) 79 % 52-72 LV Diastolic Volume (4C MOD) 86 ml LV EF (4C MOD) 85 % LV Diastolic Volume (2C MOD) 85 ml LV EF (2C MOD) 86 % LV Diastolic Volume (BP MOD) 86 ml 62-150 LV Diastolic Volume Index (BP MOD) 44 ml/m2 34-74 LV Systolic Volume (BP MOD) 13 ml 21-61 LV Systolic Volume Index (BP MOD) 6 ml/m2 11-31 LV EF (BP MOD) 85 % 52-72 LV Diastolic Length (4C) 8.2 cm LV Systolic Length (4C) 5.7 cm LV End Diastolic Volume (BP A-L) 92 ml LV End Systolic Volume (BP A-L) 17 ml LV EF (BP A-L) 81 % LV Stroke Volume (4C MOD) 73 ml RV Dimensions 2D/MM RVID Diastole (2D) 3.3 cm 2.5-3.5 RVID Systole (2D) 2.7 cm RV Diastolic Wall Thickness (2D) 0.6 cm 0.1-0.5 RV Systolic Wall Thickness (2D) 0.7 cm RV Basal Diastolic Dimension 3.3 cm 2.5-4.1 RV Mid-Cavity Diastolic Dimension 3.6 cm 1.9-3.5 RV Diastolic Length (4C) 7.1 cm 5.9-8.3 RV Diastolic Area (4C) 20 cm2 10-24 RV Systolic Area (4C) 14 cm2 3-15 TAPSE 1.1 cm >=1.7 RV Fractional Shortening 2D RV FAC (4C) 31 % >=35 Atria Name Value Normal LA Dimensions LA Dimension (2D) 4.6 cm 3.0-4.1 LA Dimen Index (2D) 2.4 cm/m2 LA Volume (BP MOD) 66 ml LA Volume Index (BP MOD) 34 ml/m2 16-34 RA Dimensions RA Area (4C) 21 cm2 <=18 RA Area (4C) Index 11 cm2/m2 RA ESV (4C MOD) 61 ml 18-32 RA ESV Index (4C MOD) 31 ml/m2 16-34 Report Signatures Finalized by Cornelius Reilly MD on 06/23/2024 11:29 PM Procedure Note Cornelius Reilly MD - 06/23/2024 Summary * Findings consistent with sclerotic valve disease, satisfactoryfunction of 23 mm CE Magna Ease aortic bioprosthesis, at least mild AV patientprosthetic mismatch, minimal regurgitation, sclerotic MV, mild MR, no stenosis,normal LV size and function, mild LVH, LV diastolic dysfunction, elevated LApressure, mildly dilated LA, modest pulmonary vascular dysfunction, mild TR, mild secondary pulmonary hypertension, normal venous pressure and hyperdynamicLV systolic function. EF 85%. No pericardial effusion, myocardial scareor injury detected. Atheroma in aorta but otherwise normal aorta for age. * No significant change since prior study from 06/18/2023. * The left ventricle is small in size, with hyperdynamic systolicfunction and an estimated ejection fraction of 85 % by biplane method of disks.Left ventricular wall motion is normal. * Right ventricle is normal in size with moderately reduced systolic function. * The left ventricle is small in size. * Left ventricular systolic function is hyperdynamic with an estimated ejection fraction of 85 % by biplane method of disks. * Left ventricular segmental wall motion is normal. * The left ventricular mass is mildly increased with concentrichypertrophy. Mass index 109 gm/M2. RWT 0.66. * The left ventricular diastolic function is consistent with grade II diastolic dysfunction and increased left atrial filling pressure. AverageE/e' ratio 17. * The right ventricle is normal in size. * Right ventricular systolic function is moderately reduced. FAC 31%. TAPSE 1.1-1.3 cm. * The left atrium is mildly dilated with a left atrial volume index of34 ml/m2 by BP MOD. * The right atrium is borderline dilated. Volume index 31 ml/M2. * There is a 23 mm CE Magna Ease bioprosthetic valve in the aorticposition. * The valve is well seated. * AVR indices; a peak velocity of 2.3 m/s, a mean gradient of 10 mmHg,a valve area of 1.49 cm2, an acceleration time of 118 ms, and an AV DI of0.47. Findings are consistent with mild patient-prosthetic mismatch. Valvearea index 0.77 cm2/M2. Stroke volume index 34 ml/M2. Cardiac index 2.5L/min/M2. * There is no regurgitation. * Mitral valve area by 2D Planimetry is 4.91 cm2. * There is mild mitral valve regurgitation. * Mitral valve effective regurgitant orifice by PISA is 0.04 cm2. * Mitral valve regurgitant volume by pulsed Doppler quantitative flowmethod is 6.35 ml. * Mitral valve regurgitant fraction by pulsed Doppler quantitativeflow method is 9 %. * The tricuspid valve is normal. * Tricuspid valve area by Pressure Halftime Method is 4.56 cm2. * There is trace tricuspid valve regurgitation. * No pulmonary hypertension, estimated pulmonary arterial systolicpressure is 28 mmHg. PVR 2.1 Wood units. * Pulmonary valve area by Continuity Equation is 4.2 cm2. * There is mild pulmonic regurgitation. * Pulmonary valve effective regurgitant orifice by PISA is mild, 0.06cm2. * Pulmonary valve regurgitant volume by PISA is mild, 4 ml. * Estimated pulmonary arterial mean pressure 15 mmHg. * Estimated pulmonary arterial end diastolic pressure 7 mmHg. * The ascending aorta is normal in size measuring 3.1 cm with an indexof 1.6 cm/m2. * Moderate plaque in the ascending and transverse of the aorta. * Normal inferior vena cava with < 50% collapse upon inspirationconsistent with normal right atrial pressure, 3 mmHg. * There is no pericardial effusion. 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 Staff Ordering Provider: Aster Quintana MD Balloon Pilot: Jayy Kilpatrick Left Ventricle The left ventricle is small in size. Left ventricular systolic functionis hyperdynamic with an estimated ejection fraction of 85 % by biplane methodof disks. Left ventricular segmental wall motion is normal. The leftventricular mass is mildly increased with concentric hypertrophy. Mass index 109gm/M2. RWT 0.66. The left ventricular diastolic function is consistent with gradeII diastolic dysfunction and increased left atrial filling pressure. AverageE/e' ratio 17. Abnormal cardiac motion (anterior excursion of heart with ventricular systole) consistent with a post-operative state. Right Ventricle The right ventricle is normal in size. Right ventricular systolicfunction is moderately reduced. FAC 31%. TAPSE 1.1-1.3 cm. Right ventricularwall thickness is normal. Ventricular Septum Intact interventricular septum visualized by 2D and color Dopplerimaging. Left Atrium The left atrium is mildly dilated with a left atrial volume index of34 ml/m2 by BP MOD. No mass or thrombus formation in the left atrium. Right Atrium The right atrium is borderline dilated. Volume index 31 ml/M2. No massor thrombus formation in the right atrium. Atrial Septum Intact interatrial septum visualized by 2D and color Doppler imaging. Aortic Valve There is a 23 mm CE Magna Ease bioprosthetic valve in the aorticposition. The valve is well seated. The leaflets are not well visualized. There isno regurgitation. AVR indices; a peak velocity of 2.3 m/s, a mean gradient of10 mmHg, a valve area of 1.49 cm2, an acceleration time of 118 ms, and an AVDI of 0.47. Findings are consistent with mild patient-prosthetic mismatch.Valve area index 0.77 cm2/M2. Stroke volume index 34 ml/M2. Cardiac index2.5 L/min/M2. Pulmonic Valve The pulmonic valve is normal. There is no pulmonic valve stenosis.Pulmonary valve area by Continuity Equation is 4.2 cm2. There is mild pulmonic regurgitation. Estimated pulmonary arterial mean pressure 15 mmHg.Estimated pulmonary arterial end diastolic pressure 7 mmHg. Pulmonary valveregurgitant volume by PISA is mild, 4 ml. Pulmonary valve effective regurgitantorifice by PISA is mild, 0.06 cm2. Mitral Valve The mitral valve is thickened, calcified and displaying restrictedposterior leaflet motion. There is no mitral valve stenosis. There is mild mitralvalve regurgitation. Mitral valve diastolic mean gradient is 1 mmHg. Mitralvalve area by 2D Planimetry is 4.91 cm2. Mitral valve regurgitant volume by PISAis 6 ml. Mitral valve effective regurgitant orifice by PISA is 0.04 cm2.Mitral valve regurgitant volume by pulsed Doppler quantitative flow method is6.35 ml. Mitral valve regurgitant fraction by pulsed Doppler quantitativeflow method is 9 %. Tricuspid Valve The tricuspid valve is normal. There is no significant tricuspid valve stenosis. There is trace tricuspid valve regurgitation. Tricuspid valvearea by Pressure Halftime Method is 4.56 cm2. Tricuspid valve diastolic mean gradient is 1 mmHg. No pulmonary hypertension, estimated pulmonaryarterial systolic pressure is 28 mmHg. PVR 2.1 Wood units. Inferior Vena Cava The inferior vena cava is normal in size (< 2.1 cm). Normal inferiorvena cava with < 50% collapse upon inspiration consistent with normal rightatrial pressure, 3 mmHg. Pericardium/Pleural There is no pericardial effusion. Aorta The aortic root at the sinus of Valsalva is normal in size. Theascending aorta is normal in size. The aortic root at the sinus of Valsalva isnormal in size measuring 3.2 cm with an index of 1.6 cm/m2. The ascending aorta is normal in size measuring 3.1 cm with an index of 1.6 cm/m2. Moderateplaque in the ascending and transverse of the aorta. Measurements Left Ventricular Outflow Tract Name Value Normal LVOT 2D LVOT Diameter 2.0 cm LVOT Area 3.2 cm2 LVOT Doppler LVOT Peak Velocity 1.0 m/s LVOT Peak Gradient 4 mmHg LVOT Mean Velocity 70.17 cm/s LVOT Mean Gradient 2 mmHg LVOT VTI 20.8 cm LVOT VTI/AV VTI Ratio 0.5 LVOT Stroke Volume 67 ml LVOT Stroke Volume Index 34 ml/m2 35-58 LVOT CO 4.2 l/min LVOT CI 2.1 l/min/m2 Pulmonic Valve Name Value Normal PV 2D RVOT Diameter (2D) 2.6 cm 1.7-2.7 RVOT Doppler RVOT Peak Velocity 0.7 m/s RVOT Peak Gradient 2 mmHg RVOT Mean Gradient 1 mmHg PV Doppler PV Peak Velocity 1.0 m/s PV Peak Gradient 3 mmHg PV Mean Gradient 2 mmHg PV Area (Cont Eq VTI) 4.20 cm2 PV Area Index (Cont Eq VTI) 2.15 cm2/m2 PV Area (Cont Eq Adrian) 3.8 cm2 PV Area Index (Cont Eq Adrina) 1.94 cm2/m2 PV Accel Time 114.18 ms PV Regurgitation Doppler MS End Diastolic Velocity 1.0 m/s MS End Diastolic Gradient 4 mmHg MS Vena Contracta 1.27 mm Mitral Valve Name Value Normal MV 2D/MM MV Area (Planimetry) 4.91 cm2 4.00-5.00 MV Annulus Diameter (PLAX) 2.5 cm MV Annulus Diameter (2C) 3.0 cm MV Annulus Diameter (4C) 3.0 cm <=4.4 MV Doppler MV Peak Gradient 4 mmHg MV Mean Gradient 1 mmHg MV DI (VTI) 1.29 MV Decel Time (CW) 202 ms MV PHT 58 ms MV Area (PHT) 3.76 cm2 4.00-5.00 MV Area (Cont Eq VTI) 2.49 cm2 MV Regurgitation Doppler MR Peak Gradient 122 mmHg MR Volume (Cont Eq) 6 ml MR Fraction (Cont Eq) 9 % MR Vena Contracta 1.8 mm MR ERO (PISA) 0.04 cm2 MR Volume (PISA) 6 ml MR Fraction (PISA) 8 % MV Diastolic Function MV E Peak Velocity 1.0 m/sec MV A Peak Velocity 0.9 m/sec MV E/A 1.2 MV Decel Time (PW) 221 ms MV A Wave Duration 122 ms MV Annular TDI MV Septal s' Velocity 8 cm/s MV Septal e' Velocity 5 cm/s >=8 MV Septal a' Velocity 8 cm/s MV E/e' (Septal) 20 <=8 MV A/a' (Septal) 11 MV Lateral s' Velocity 9 cm/s MV Lateral e' Velocity 8 cm/s >=10 MV Lateral a' Velocity 11 cm/s MV E/e' (Lateral) 14 <=8 MV A/a' (Lateral) 8 MV e' Average 6 cm/s MV E/e' (Average) 17 Tricuspid Valve Name Value Normal TV Doppler TV Peak Velocity 0.8 m/s TV Peak Gradient 2 mmHg TV Mean Gradient 1 mmHg TV PHT 48 ms TV Area (PHT) 4.56 cm2 TV Regurgitation Doppler TR Peak Velocity 2.5 m/s TR Peak Gradient 25 mmHg Estimated PAP/RSVP RA Pressure 3 mmHg <=5 PA Systolic Pressure 28 mmHg <35 RV Systolic Pressure 28 mmHg <36 TV Diastolic Function TV E Peak Velocity 0.8 m/sec TV A Peak Velocity 0.6 m/sec TV E/A 1.2 0.8-2.0 TV Decel Time 167 ms >=120 RV IVRT (PW) 55 ms TV Annular TDI TV Lateral Manuela s' Velocity 12 cm/s 10-19 TV Lateral Manuela e' Velocity 9 cm/s 8-20 TV Lateral Manuela a' Velocity 12 cm/s TV E/e' 8 2-6 TV A/a' 5 Pulmonary Vessels Name Value Normal Pulmonary Artery Doppler PA End Diastolic Pressure for MS 7 mmHg Pulmonary Veins Pulm Vein Peak Systolic Velocity 57.7 cm/s Pulm Vein Peak Diastolic Velocity 47.3 cm/s Pulm Vein S/D Velocity Ratio 1 Pulm Vein Ar Velocity 30.6 cm/s Pulm Vein Ar Dur - MV A Dur 33 ms Aorta Name Value Normal Ascending Aorta Ao Annulus Diameter 2.3 cm 2.3-2.9 Ao Annulus Diam Index 1.2 cm/m2 1.2-1.4 Sinus of Valsalva Diameter 3.2 cm 2.8-4.0 Sinus of Valsalva Index 1.6 cm/m2 1.3-2.1 Ao Sinotub Junction Diameter 2.6 cm 2.6-3.2 Asc Ao Diameter 3.1 cm 2.2-3.8 Asc Ao Diameter Index 1.6 cm/m2 1.1-1.9 Mid Asc Ao Diameter 3.1 cm Septae/Shunt/Generic Name Value Normal Qp/Qs Qp/Qs 1.0 Venous Name Value Normal IVC/SVC IVC Diameter 2.0 cm <=2.1 IVC Diameter (Insp 2D) 0.5 cm IVC Diameter Percent Change (2D) 73 % >=50 Aortic Valve Name Value Normal AV 2D/MM AV Area (Planimetry) 1.51 cm2 >=3.00 AV Cusp Sep (MM) 1.4 cm AV Doppler AV Peak Velocity 2.26 m/s AV Peak Gradient 20 mmHg AV Mean Gradient 10 mmHg AV VTI 44 cm AV Area (Cont Eq VTI) 1.51 cm2 >=2.00 AV Area (Cont Eq Adrian) 1.49 cm2 AV DI (VTI) 0.47 AV DI (Adrian) 0.46 AV Accel Time 118 ms AV Regurgitation 2D LVOT Area 3.21 cm2 AV Regurgitation Doppler AR Fraction (Cont Eq) 0 % AR Volume (Cont Eq) 0 ml Ventricles Name Value Normal LV Dimensions 2D/MM IVS Diastolic Thickness (2D) 1.4 cm 0.6-1.0 LVID Diastole (2D) 4.1 cm 4.2-5.8 LVPW Diastolic Thickness (2D) 1.4 cm 0.6-1.0 LVID Systole (2D) 2.2 cm 2.5-4.0 LV Systolic Endo Area 4 cm2 LV Diastolic Endo Area 13 cm2 LV Systolic Epic Area 29 cm2 LV Diastolic Epic Area 38 cm2 LV Mass (2D Cubed) 212 g 88-224 LV Mass Index (2D Cubed) 109 g/m2 49-115 Relative Wall Thickness (2D) 0.66 <=0.42 LV Fractional Shortening/Ejection Fraction 2D/MM LV Fractional Shortening (2D) 41 % 25-43 LV EF (2D Teicholz) 79 % 52-72 LV Diastolic Volume (4C MOD) 86 ml LV EF (4C MOD) 85 % LV Diastolic Volume (2C MOD) 85 ml LV EF (2C MOD) 86 % LV Diastolic Volume (BP MOD) 86 ml 62-150 LV Diastolic Volume Index (BP MOD) 44 ml/m2 34-74 LV Systolic Volume (BP MOD) 13 ml 21-61 LV Systolic Volume Index (BP MOD) 6 ml/m2 11-31 LV EF (BP MOD) 85 % 52-72 LV Diastolic Length (4C) 8.2 cm LV Systolic Length (4C) 5.7 cm LV End Diastolic Volume (BP A-L) 92 ml LV End Systolic Volume (BP A-L) 17 ml LV EF (BP A-L) 81 % LV Stroke Volume (4C MOD) 73 ml RV Dimensions 2D/MM RVID Diastole (2D) 3.3 cm 2.5-3.5 RVID Systole (2D) 2.7 cm RV Diastolic Wall Thickness (2D) 0.6 cm 0.1-0.5 RV Systolic Wall Thickness (2D) 0.7 cm RV Basal Diastolic Dimension 3.3 cm 2.5-4.1 RV Mid-Cavity Diastolic Dimension 3.6 cm 1.9-3.5 RV Diastolic Length (4C) 7.1 cm 5.9-8.3 RV Diastolic Area (4C) 20 cm2 10-24 RV Systolic Area (4C) 14 cm2 3-15 TAPSE 1.1 cm >=1.7 RV Fractional Shortening 2D RV FAC (4C) 31 % >=35 Atria Name Value Normal LA Dimensions LA Dimension (2D) 4.6 cm 3.0-4.1 LA Dimen Index (2D) 2.4 cm/m2 LA Volume (BP MOD) 66 ml LA Volume Index (BP MOD) 34 ml/m2 16-34 RA Dimensions RA Area (4C) 21 cm2 <=18 RA Area (4C) Index 11 cm2/m2 RA ESV (4C MOD) 61 ml 18-32 RA ESV Index (4C MOD) 31 ml/m2 16-34 Report Signatures Finalized by Cornelius Reilly MD on 06/23/2024 11:29 PM Aster Quintana MD ECHO CUPID * VAS ARTERIAL ANKLE ARM INDEX (02/26/2022 3:17 PM CDT) Only the most recent of4 resultswithin the time period is included. Anatomical Region Laterality Modality Ankle / Foot, Upper Extremity In travascular Ultrasound 02/26/2022 2:51 AM CDT Narrative Procedure Note Yanna Lopes MD - 02/26/2022 Aster Quintana MD VASCULAR LAB ORDERAB LES * ECHO COMPLETE (02/06/2022 11:53 AM CDT) Only the most recent of3 resultswithin the time period is included. Anatomical Region Laterality Modality Chest Echo 02/06/2022 11:1 0 AM CDT Narrative Procedure Note Pepe Torres MD - 02/07/2022 Aster Quintana MD ECHOCARDIOGRAPHY RAD IANT * CARDIAC EKG ORDER (02/15/2021) Only the most recent of3 resultswithin the time period is included. Narrative 02/15/2021 Ordered by an unspecified provider. Scanned Document CARDIAC SERVICES ORD ERABLES * EKG - Clinic Performed (02/07/2021 11:05 AM CDT) Only the most recent of2 resultswithin the time period is included. Aster Quintana MD ECG ORDERABLES * LIPID PROFILE (03/17/2020 9:10 AM CDT) Only the most recent of3 resultswithin the time period is included. Cholesterol 130 <200 mg/dL [facility] HDL Cholesterol 42 > OR = 40 mg/dL [facility] Triglycerides 112 <150 mg/dL [facility] LDL Calculated 68 mg/dL (calc) [facility] Comment: Reference range: <100 Desirable range <100 mg/dL for primary prevention; <70 mg/dL for patients with CHD or diabetic patients with > or = 2 CHD risk factors. LDL-C is now calculated using the Cosme-Fernando calculation, which is a validated novel method providing better accuracy than the Friedewald equation in the estimation of LDL-C. Cosme BROOKS et al. JUDY. 2013;310(19): 1338-1659 (http://education.zSoup.com/faq/LZY985) CHOL/HDLC RATIO 3.1 <5.0 (calc) [facility] Non HDL Cholesterol 88 <130 mg/dL (calc) [facility] Comment: For patients with diabetes plus 1 major ASCVD risk factor, treating to a non-HDL-C goal of <100 mg/dL (LDL-C of <70 mg/dL) is considered a therapeutic option. REPORT COMMENT: FASTING:YES Test Performed at: [facility] [address] [place] [address] EDGAR MOORE DO,MPH 03/17/2020 9:10 AM CDT 03/17/2020 9:10 AM CDT Aster Quintana MD LAB - CHEMISTRY [facility] Organization Address City/State/ZIP Co de Phone Number [facility] [address] [place] [address] * MS TTE W/DOPPLER, COMPLETE (02/09/2020 9:59 AM CDT) Only the most recent of2 resultswithin the time period is included. Narrative Aster Quintana MD - 02/09/2020 9:59 AM CDT Aster Quintana MD 02/10/2020 10:45 AM [facility] 2-D & M-Mode Echocardiogram Report Color Flow Doppler Report Patients Name: Chapito Skinner : 1950 Age: [age] year old Gender: male Date of Test: 02/09/2020 Referring Physician: Aster Quintana MD [address] [facility] [address] [place] [address] Primary Care Physician: Jean Lockett MD Introduction: Chapito Skinner is a 69 year old male presenting with S/P AVR. Indication: S/P AVR Chamber Measurements LV Internal Dimension Systole (cm): 4.2 cm LV Internal Dimension Diastole (cm): 2.1 cm Septal Thickness (cm): 1.2 cm Aortic Root Measurement (cm): 2.3 cm Left Atrium Measurement (cm): 4.8 cm LVOT Diameter (cm): 2.1 cm Ejection Fraction 60% Color Flow and Doppler Waveform Analysis Aortic Velocities: AV Max (m/s): 2.1 m/s LVOT max (m/s): 0.9 m/s Mitral Velocities: E (m/s): 0.9 m/s A (m/s): 0.5 m/s Tricuspid Velocities: PulmonicVelocities: Max Pulmonic Valve Velocity (m/s): 1.2 m/s OVERALL INTERPRETATION: - Normal left ventricular size and systolic function. There is concentric remodeling of the left ventricle. Ejection fraction is estimated to be 60%. - Normal right ventricular size and systolic function. - No abnormalities of the aorta or pericardium. - Normal aortic valve structure and velocities. No aortic regurgitation. No aortic stenosis. - Normal mitral valve structure and velocities. Mild mitral regurgitation. - Normal LV diastolic function. - Normal tricuspid valve structure and velocities. Mild tricuspid regurgitation. - Calculated right ventricular systolic pressure of < 35 mmHg, which is normal. - Pulmonic valve is not well seen. No pulmonary insufficiency or stenosis. - Normal left and right atrial sizes. Electronically signed by: Aster Quintana MD Date of Interpretation: 02/10/2020 Date of Final Report: 02/10/2020 Aster Quintana MD ECG ORDERABLES * CARDIAC STRESS TEST ORDER (12/02/2018 8:16 AM CDT) Narrative 12/02/2018 8:16 AM CDT Ordered by an unspecified provider. Scanned Document CARDIAC SERVICES ORD ERABLES * MS HT MUSCLE IMAGE SPECT, MULT, MS TC-99M SESTAMIBI DX PER STUDY DOSE (10/14/2018 2:00 PM EXECUTIVE COACH) Only the most recent of2 resultswithin the time period is included. Narrative Ramona Ramos DO - 10/14/2018 2:00 PM EXECUTIVE COACH Ramona Ramos DO 10/14/2018 2:00 PM Patient Name: Chapito Skinner : 1950 CPT Codes: 85438 BMI: Body mass index is 25.99 kg/(m^2). Study:Pharmacologic Stress Myocardial Perfusion-One Day Protocol Date of Service: 10/07/2018 Referring Physician: Mariano Rodarte MD This report reflects our interpretive findings of the results of the myocardial perfusion imaging and the stress electrocardiogram combined with the patient's age, sex, symptoms, and coronary risk factors. The study was performed in order to evaluate chest pressure in this 68 y.o. year old male with history of CAD s/p PCI, PAD, DM, HTN. Pharmacologic Stress: Pharmacologic stress was performed with the I.V. injection of 0.4 mg of Lexiscan over 10 seconds, followed 10 seconds minute later with stress sestamibi dose. The heart rate was 56 BPM at baseline and peaked at 98 BPM during the infusion. The resting blood pressure was 180/90 and was 150/78 three minutes after infusion of the pharmacologic agent. The resting ECG showed normal sinus rhythm. The stress ECG revealed < 1mm ST depression in leads V3,V4 that started 50 seconds into stress and resolved 10 seconds into recovery. There were no significant arrhythmias.The patient experienced dyspnea during the procedure that resolved following 125 mg of aminophylline. Myocardial Perfusion Imaging: SPECT myocardial perfusion imaging was performed at rest 30 minutes following the I.V. injection of 12.9 mCi Tc-99m Sestamibi. At peak pharmacologic effect, the patient was given an I.V. injection of 37.4 mCi Tc-99m Sestamibi. gated post-stress SPECT imaging was performed 35 minutes after stress. The overall quality of the study is Good There was diaphragmatic attenuation.The TID is 1.24 which is normal, and the LHR is 0.42 which is normal. SPECT imaging revealed normal myocardial perfusion at stress. There is no evidence of ischemia. The global ejection fraction was 68%. Regional wall motion analysis showed normal wall motion. The percentage of myocardium at risk is 0 %. The global ejection fraction was 68%. Normal LV volume. Regional wall motion analysis showed normal regional wall motion TPD = 0% EDV= 87ml ESV= 28ml SV= 59 ml EF= 68% SSS=0 SRS=0 SDS=0 Conclusion: Myocardial perfusion imaging is normal. Overall left ventricular systolic function was without regional wall motion abnormalities. The type and distribution of the scintigraphic findings is consistent with normal myocardial perfusion with no evidence of ischemia. No previous study was available for comparison. Electronically signed by: Ramona Ramos DO Date of Interpretation: 10/14/2018 Date of Final Report: 10/14/2018 Aster Quintana MD ECG ORDERABLES * MS CARDIAC STRESS TST,COMPLETE (10/14/2018 2:00 PM EXECUTIVE COACH) Only the most recent of2 resultswithin the time period is included. Narrative Tyrel Jimenez MD - 10/14/2018 2:00 PM [facility] Tyrel Jimenez MD 10/14/2018 2:00 PM [facility] Nuclear Cardiology Department Myocardial Perfusion Imaging Pharmacological Stress ECG Interpretation Procedure: 1. The patient received 0.4mg of intravenous Lexiscan over 10 seconds. 2. The resting heart rate was 56 bpm; maximum heart rate was 98 bpm. 3. The resting blood pressure was 180/90 and repeat a few mintues after rest was 180/80 mmHg ( pt was converted from exercise to Lexiscan). and was 150/78 mmHg 3 minutes after termination of the pharmacologic vasodilator. 4. Side Effects:dyspnea and hypotension The symptoms subsided after 125 mg aminophylline 5. Chest pain: None Interpretation: 1. Rest ECG: NSR RSR' in V1-2 c/w RV conduction delay, with TWI in V1-2-[address] segment depression: Abnormal. Pharmacologically induced a maximum of <[address] depression in leads V3, V4 which started 50 seconds into stress and resolved 10 seconds into recovery. 3. Stress ST segment elevation: none. 4. T wave changes were absent (unchanged from baseline) Impression: Equivocal Lexiscan ECG study Please see nuclear imaging under separate report Electronically signed by: Tyrel Jimenez MD Aster Quintana MD ECG ORDERABLES * VAS CAROTID DUPLEX BILATERAL (04/04/2017 10:43 AM CDT) Only the most recent of2 resultswithin the time period is included. Anatomical Region Laterality Modality Other Velia Perea APRN-[facility] VASCULAR LAB OR DERABLES * CT ANGIO ABDOMEN AORTA W RUNOFF (12/13/2016 6:31 AM CDT) Anatomical Region Laterality Modality Abdomen, Lower Extremity Other Impressions 12/18/2016 3:08 PM CDT IMPRESSION: 1. Bilateral 2 vessel runoff. The anterior tibial arteries are atherosclerotic and occluded bilaterally. Both reconstitute distally as the dorsalis pedis arteries. Severe atherosclerosis of the abdominal aorta with luminal narrowing. 2. Partially rim-enhancing 3.0 by 2.5 cm hypoattenuating lesion in hepatic segment 8 could represent a hemangioma but is incompletely characterized on this single phase study. MR liver or triple phase CT liver is recommended for further evaluation. 3. Mild retroperitoneal lymphadenopathy measuring up to 1.1 cm, of uncertain significance. 4. Subcentimeter right lower lobe pulmonary nodules, unchanged in size since 11/03/2012 consistent with a benign etiology. 5. 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 Dictated by Hemanth Frank MD (residential treatment counselor). I, Dr. BENNY AGUILAR MD have personally reviewed and interpreted this examination/study. This report was electronically signed by BENNY AGUILAR MD on 12/18/2016 3:08 PM . Narrative 12/18/2016 3:08 PM CDT EXAMINATION: Computed tomography (CT) angiography of the abdomen, pelvis, and lower extremities with contrast HISTORY: claudications TECHNIQUE: CT angiography of the abdomen, pelvis, and lower extremities was performed following the uneventful administration of 100 mL of Omnipaque 350 intravenous contrast according to standard protocol. COMPARISON: Comparison is made to a retroperitoneal sonogram performed 12/02/2015. FINDINGS: Abdominal aorta: The infrarenal abdominal aorta is severely atherosclerotic with calcified and noncalcified plaque, areas of ulcerated plaque, and stenosis. For example, the infrarenal abdominal aorta at the level of L4 has a cross-sectional diameter of 2.1 x 1.9 cm, but a contrast opacified luminal diameter of 1.1 x 1.0 cm (series 5 image 146). There is no abdominal aortic aneurysm. Celiac axis and major branches: Patent without significant focal stenosis. Superior mesenteric artery: Patent without significant focal stenosis. Inferior mesenteric artery: Atherosclerosis at its origin causes mild stenosis, otherwise patent without significant focal stenosis. Right renal arteries: Patent without significant focal stenosis. An accessory right renal artery is present. Left renal artery: Patent without significant focal stenosis. Right common iliac artery: Atherosclerotic but patent without significant focal stenosis. Right internal iliac artery: Atherosclerotic with mild multifocal stenoses. Right external iliac artery: Atherosclerotic but patent without significant focal stenosis. Right common femoral artery: Atherosclerotic but patent without significant focal stenosis. Right profunda femoris artery: Patent without significant focal stenosis. Right superficial femoral artery: Patent without significant focal stenosis. Right popliteal artery: Patent without significant focal stenosis. Right anterior tibial artery: Occluded in the level of the proximal tibia. This vessel reconstitutes distally where it crosses the ankle and supplies the dorsalis pedis artery. Right tibioperoneal trunk: Patent without significant focal stenosis. Right posterior tibial artery: Patent without significant focal stenosis. This vessel crosses the ankle and supplies the plantar artery. Right peroneal artery: Irregular with multiple areas of narrowing, weakly opacified in the distal leg and at the ankle. Left common iliac artery: Atherosclerotic but patent without significant focal stenosis. Left internal iliac artery: Atherosclerotic with mild multifocal stenoses. Left external iliac artery: Atherosclerotic but patent without significant focal stenosis. Left common femoral artery: Atherosclerotic but patent without significant focal stenosis. Left profunda femoris artery: Patent without significant focal stenosis. Left superficial femoral artery: Patent without significant focal stenosis. Left popliteal artery: Patent without significant focal stenosis. Left anterior tibial artery: Occluded at the level of the mid tibia. This vessel reconstitutes distally as the dorsalis pedis artery. Left tibioperoneal trunk: Patent without significant focal stenosis. Left posterior tibial artery: Patent without significant focal stenosis. This vessel crosses the ankle and supplies the plantar artery. Left peroneal artery: Patent without significant focal stenosis. The visible lung bases are clear. Two, 4 mm subpleural nodules are seen in the right lower lobe (series 4, images 6 and 7). These are not significantly changed in size since the chest CT dated 11/03/2012. The heart size is normal without pericardial effusion. A partially rim-enhancing 3.0 by 2.5 cm hypoattenuating lesion in hepatic segment 8 is indeterminant. Hypoattenuating focus along the falciform ligament is indeterminate but may represent a focus of fatty infiltration. Otherwise, the liver appears normal. The gallbladder is normal without evidence of wall thickening, pericholecystic fluid, or gallstones. The intrahepatic and extrahepatic bile ducts are nondilated. The spleen, pancreas, and adrenal glands appear normal. Other than a on 0.2 cm cyst on the right, the kidneys appear normal in size and configuration. There is no evidence of renal calculus or hydronephrosis. The distal esophagus and stomach appear normal. The small bowel and large bowel are normal in caliber without evidence of wall thickening or obstruction. Colonic diverticulosis is noted. The appendix is not seen. No free air or free fluid is identified within the abdomen. Mild retroperitoneal lymphadenopathy is seen. For reference a retroperitoneal lymph node measures up to 1.1 cm in short axis (series 4, image 37). The urinary bladder is distended with fluid and appears normal. No free fluid is seen within the pelvis. There is no pelvic lymphadenopathy. Bone windows demonstrate no suspicious lytic or blastic lesions. The visible osseous structures are intact. Multilevel degenerative changes are noted in the spine. 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 Tricompartmental degenerative changes are seen in the knees bilaterally. Subcentimeter cysts are noted in both proximal femurs, left greater than right. Procedure Note Benny Aguilar MD - 12/20/2017 EXAMINATION: Computed tomography (CT) angiography of the abdomen, pelvis,and lower extremities with contrast HISTORY: claudications TECHNIQUE: CT angiography of the abdomen, pelvis, and lower extremitieswas performed following the uneventful administration of 100 mL ofOmnipaque 350 intravenous contrast according to standard protocol. COMPARISON: Comparison is made to a retroperitoneal sonogram performed12/02/2015. FINDINGS: Abdominal aorta: The infrarenal abdominal aorta is severelyatherosclerotic with calcified and noncalcified plaque, areas of ulceratedplaque, and stenosis. For example, the infrarenal abdominal aorta at thelevel of L4 has a cross-sectional diameter of 2.1 x 1.9 cm, but a contrast opacified luminal diameter of 1.1 x 1.0 cm(series 5 image 146). There is no abdominal aortic aneurysm. Celiac axis and major branches: Patent without significant focalstenosis. Superior mesenteric artery: Patent without significant focal stenosis. Inferior mesenteric artery: Atherosclerosis at its origin causes mildstenosis, otherwise patent without significant focal stenosis. Right renal arteries: Patent without significant focal stenosis. Anaccessory right renal artery is present. Left renal artery: Patent without significant focal stenosis. Right common iliac artery: Atherosclerotic but patent without significantfocal stenosis. Right internal iliac artery: Atherosclerotic with mild multifocalstenoses. Right external iliac artery: Atherosclerotic but patent withoutsignificant focal stenosis. Right common femoral artery: Atherosclerotic but patent withoutsignificant focal stenosis. Right profunda femoris artery: Patent without significant focalstenosis. Right superficial femoral artery: Patent without significant focalstenosis. Right popliteal artery: Patent without significant focal stenosis. Right anterior tibial artery: Occluded in the level of the proximal tibia.This vessel reconstitutes distally where it crosses the ankle and suppliesthe dorsalis pedis artery. Right tibioperoneal trunk: Patent without significant focal stenosis. Right posterior tibial artery: Patent without significant focal stenosis.This vessel crosses the ankle and supplies the plantar artery. Right peroneal artery: Irregular with multiple areas of narrowing, weaklyopacified in the distal leg and at the ankle. Left common iliac artery: Atherosclerotic but patent without significantfocal stenosis. Left internal iliac artery: Atherosclerotic with mild multifocalstenoses. Left external iliac artery: Atherosclerotic but patent without significantfocal stenosis. Left common femoral artery: Atherosclerotic but patent without significantfocal stenosis. Left profunda femoris artery: Patent without significant focal stenosis. Left superficial femoral artery: Patent without significant focalstenosis. Left popliteal artery: Patent without significant focal stenosis. Left anterior tibial artery: Occluded at the level of the mid tibia. Thisvessel reconstitutes distally as the dorsalis pedis artery. Left tibioperoneal trunk: Patent without significant focal stenosis. Left posterior tibial artery: Patent without significant focal stenosis.This vessel crosses the ankle and supplies the plantar artery. Left peroneal artery: Patent without significant focal stenosis. The visible lung bases are clear. Two, 4 mm subpleural nodules are seen inthe right lower lobe (series 4, images 6 and 7). These are notsignificantly changed in size since the chest CT dated 11/03/2012. Theheart size is normal without pericardial effusion. A partially rim-enhancing 3.0 by 2.5 cm hypoattenuating lesion in hepaticsegment 8 is indeterminant. Hypoattenuating focus along the falciformligament is indeterminate but may represent a focus of fatty infiltration.Otherwise, the liver appears normal. The gallbladder is normal without evidence of wall thickening,pericholecystic fluid, or gallstones. The intrahepatic and extrahepaticbile ducts are nondilated. The spleen, pancreas, and adrenal glands appearnormal. Other than a on 0.2 cm cyst on the right, the kidneys appear normal in size and configuration. Thereis no evidence of renal calculus or hydronephrosis. The distal esophagus and stomach appear normal. The small bowel and largebowel are normal in caliber without evidence of wall thickening orobstruction. Colonic diverticulosis is noted. The appendix is not seen. Nofree air or free fluid is identified within the abdomen. Mild retroperitoneal lymphadenopathy is seen. Forreference a retroperitoneal lymph node measures up to 1.1 cm in short axis(series 4, image 37). The urinary bladder is distended with fluid and appears normal. Nofree fluid is seen within the pelvis. There is no pelviclymphadenopathy. Bone windows demonstrate no suspicious lytic or blastic lesions. Thevisible osseous structures are intact. Multilevel degenerative changes arenoted in the spine. 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 Tricompartmental degenerativechanges are seen in the knees bilaterally. Subcentimeter cysts are notedin both proximal femurs, left greater than right. IMPRESSION IMPRESSION: 1. Bilateral 2 vessel runoff. The anterior tibial arteries areatherosclerotic and occluded bilaterally. Both reconstitute distally asthe dorsalis pedis arteries. Severe atherosclerosis of the abdominal aortawith luminal narrowing. 2. Partially rim-enhancing 3.0 by 2.5 cm hypoattenuating lesion in hepaticsegment 8 could represent a hemangioma but is incompletely characterizedon this single phase study. MR liver or triple phase CT liver isrecommended for further evaluation. 3. Mild retroperitoneal lymphadenopathy measuring up to 1.1 cm, ofuncertain significance. 4. Subcentimeter right lower lobe pulmonary nodules, unchanged in sizesince 11/03/2012 consistent with a benign etiology. 5. 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 Dictated by Hemanth Frank MD (residential treatment counselor). I, Dr. BENNY AGUILAR MD have personally reviewed and interpreted thisexamination/study. This report was electronically signed by BENNY AGUILAR MD on 12/18/20163:08 PM . Tyrel Jimenez MD CT ORDERABLES * CREATININE BLOOD - POCT () [facility] (12/13/2016) Creatinine POCT 0.95 0.3 - 1.3 mg/dL [facility] eGFR POCT 60 60 ml/min [facility] 12/13/2016 Tyrel Jimenez MD LAB - POINT OF CARE ORDERABLES Performing Organization Address [facility] [address]/[facility] Co de Phone Number [facility] * (ABNORMAL) GLUCOSE ACCUCHECK (11/22/2016 11:05 AM EXECUTIVE COACH) Only the most recent of34 resultswithin the time period is included. Glucose, Fingerstick 125(H) 70-115mg/d L mg/dL [facility] ([facility]) Comment:Channel Rougher: JASMEET VO 11/22/2016 11:0 5 AM EXECUTIVE COACH Aster Quintana MD LAB - CHEMISTRY ORDTodd NARANJO Performing Organization Address [facility] [address]/[facility] de Phone Number [facility] ([facility]) * ACT - POCT (IP) [facility] (11/21/2016 2:15 PM EXECUTIVE COACH) Only the most recent of3 resultswithin the time period is included. Activated Clotting Time 175 sec [facility] Blood specimen (specimen) 11/21/2016 2:15 PM EXECUTIVE COACH Aster Quintana MD LAB - POINT OF CARE ORDERABLES Performing Organization Address [facility] [address]/[facility] de Phone Number [facility] * CCL CATH LEFT HEART ARTERY VENTRICLE (11/21/2016 1:01 PM EXECUTIVE COACH) Only the most recent of2 resultswithin the time period is included. Anatomical Region Laterality Modality X-Ray Angiograph y Narrative 11/21/2016 3:08 PM EXECUTIVE COACH [facility] Cardiac Catheterization Procedure Note Patient: Chapito Skinner Age: 66 y.o. Date of : 1950 Date of Admission: 11/21/16 Procedure Date: 3/1/17 FELLOW / HARD HAT DIVER: Horacio Rios; Siddharth Marshall ATTENDING PHYSICIAN: Tyrel Jimenez PREVIOUS STRESS STUDIES WITHIN 6 MONTHS: Y Treadmill/Regadenoson MPI in 10/2016: Myocardial perfusion imaging is normal. Overall left ventricular systolic function was normal without regional wall motion abnormalities, as described above. The type and distribution of the scintigraphic findings is consistent with a normal myocardial perfusion scan, without evidence of myocardial ischemia. No previous study was available for comparison. At around 5 minutes through the exercise phase, rare PVCs were noted as well as ST depression in leads V4- V6. Patient stopped the stress test because of leg fatigue. There was no chest pain. There was at least 1-1-1/[address] depression in leads v4-v6, lead [address] segment changes resolved at about 6 minutes into the recovery phase. Stress Test or Coronary Imaging within Past 6 Months: I. Type:pharmacologic nuclear II. Findings: positive with intermediate-risk findings: Details: Normal MPI but abnormal stress EKG. DIAGNOSTIC APPROPRIATENESS CRITERIA: 50 HISTORY: Patient is a 66 y.o. male with history of HTN, DM, hypothyroidism and bicuspid aortic valve with s/p 23 mm Magna pericardial valve in 2012 who has recently had chest pain on exertion. He underwent a stress test which had abnormal EKG portion. He is therefore referred to the cardiac catheterization lab to delineate the coronary anatomy. We discussed the case with the primary floor steward/stewardess, Dr. Quintana who reported that the patient takes SL nitroglycerin on a regular basis, therefore considered as second antianginal medication along with betablocker. ACCESS SITE(S): right femoral artery, as the right radial pulse is 1+ and barely palpable. PROCEDURAL OVERVIEW: After obtaining informed consent and positioning the patient on the catheterization table, a timeout was performed to confirm the patient s name, date of , and procedure. Sedation was initiated and the patient was prepped and draped using standard sterile technique. Lidocaine was used for local anesthesia over the access site, after which the vessel was accessed. There was trouble going up with the J wire, hence the dilator was placed in the groin and a Wholey wire was used to cross the right common Iliac into the distal aorta. Then a 6F sheath was placed using the modified Seldinger technique. Access was uncomplicated. Coronary angiography was performed using JL4, JR4 6F catheter(s). Intervention was performed as described in PCI report. At the conclusion of the procedure, hemostasis was achieved using manual compression after removal of all catheters, wires, and sheaths. COMPLICATIONS: None HEMODYNAMIC FINDINGS: AO(S/D/M): 138/100/31 LV Systolic: 146 LVEDP: 19 ANGIOGRAPHY: i. Left main: Large vessel with no evidence of disease. ii. LAD: Moderate size vessel with proximal 30% disease, mid has a long severe 80% disease segment, distal vessel has minimal disease. LAD gives 3 diagonals small to moderate size with minimal disease. iii. LCx: Dominant vessel with proxima to mid moderate 60-70% disease involving both OM1 and OM2. It is left dominant and LPDA has diffuse severe disease upto 80%. OM1 and OM2 are moderate size with mild disease in the entire vessels upto 30%. OM3 has minimal disease. iv. RCA: Small non dominant vessel with minimal disease. Femoral angiography: Right SABINO: Severe disease with a gradient of more than 30 mm Hg. Right EIA and TACKING STITCH REMOVER: Mild to moderate disease. Left SABINO, EIA and TACKING STITCH REMOVER: Mild to moderate disease. DOMINANCE: Left DIAGNOSTIC INTERPRETATIONS: Severe mid LAD 80% disease. Severe LPDA 80% disease. Moderate proximal and mid LCX disease. Severe right Common Iliac artery disease. RECOMMENDATIONS AFTER DIAGNOSTIC CATHETERIZATION: Multivessel PCI of LAD, LPDA. IVUS of proximal LCX for evaluation of the lesion characteristics. APPROPRIATENESS CRITERIA FOR PCI: 22 PCI INDICATION: stable angina with abnormal stress test PCI STATUS: elective PCI PROCEDURAL MODIFIERS: none LESION UNDERGOING INTERVENTION : PCI TO THE mid LAD. 1. LESION MODIFIERS: None 2. RESTENOSIS?:no 3. ACCESS: The existing sheath was used for the PCI procedure. 4. GUIDE: XB 3.5 6F guide catheter was used for intervention. 5. ORAL ANTIPLATELET THERAPY: Aspirin and clopidogrel 6. INTRAVENOUS ANTICOAGULATION DURING PCI: Heparin 7. INTERVENTIONAL WIRE: A Unii wire was advanced beyond the lesion into the distal vessel. 8. PROCEDURE DETAILS:Balloon angioplasty was performed using a Emerge 2.5x15 mm balloon. After angioplasty, a SYNERGY 2.5x20mm drug eluting stent was deployed across the lesion. 9. After intervention, the 80% stenosis was reduced to 0% with DEBBIE-3 flow prior to PCI and DEBBIE-3 flow after PCI. LESION UNDERGOING INTERVENTION : PCI TO THE LPDA. 10. LESION MODIFIERS: None 11. RESTENOSIS?:no 12. ACCESS: The existing sheath was used for the PCI procedure. 13. GUIDE: XB 3.5 6F guide catheter was used for intervention. 14. ORAL ANTIPLATELET THERAPY: Aspirin and clopidogrel 15. INTRAVENOUS ANTICOAGULATION DURING PCI: Heparin 16. INTERVENTIONAL WIRE: A Prowater wire was advanced beyond the lesion into the distal vessel. 17. PROCEDURE DETAILS:Direct stenting with a SYNERGY [id number] drug eluting stent was deployed across the distal vessel which has lesion. Post stenting there continued to be diffuse disease proximal to the stent which was treated with a SYNERGY 2.5x24 mm RIZWAN overlapping with the distal stent. An NC Emerge 2.0x12 balloon was used to post dilate the distal stent which had a waist. 18. After intervention, the 80% stenosis was reduced to 0% with DEBBIE-3 flow prior to PCI and DEBBIE-3 flow after PCI. LESION UNDERGOING INTERVENTION : PCI TO THE proximal-mid LCX. 19. LESION MODIFIERS: Bifurcation lesion. 20. RESTENOSIS?:no 21. ACCESS: The existing sheath was used for the PCI procedure. 22. GUIDE: XB 3.5 6F guide catheter was used for intervention. 23. ORAL ANTIPLATELET THERAPY: Aspirin and clopidogrel 24. INTRAVENOUS ANTICOAGULATION DURING PCI: Heparin 25. INTERVENTIONAL WIRE: A Prowater wire was advanced beyond the lesion into the distal vessel. 26. PROCEDURE DETAILS: IVUS was performed with a ISIS catheter to assess the severity of the lesion and length of the lesion. It showed diffusely diseased proximal to mid LCX with the MLA of 2.1 mm2 at the tightest location and involving across both obtuse marginals. At this point a Samurai wire was used to wire down the OM1 in the plan of provisional stenting. Balloon angioplasty was performed using a Emerge 2.5x15 mm balloon. After angioplasty, a SYNERGY 3.0x16 mm drug eluting stent was deployed across the lesion. Post stent deployment the obtuse marginals appeared to stay un compromised with good DEBBIE 3 flow. 27. After intervention, the 70% stenosis was reduced to 0% with DEBBIE-3 flow prior to PCI and DEBBIE-3 flow after PCI. COMPLICATIONS: none HEMOSTASIS: At the conclusion of the procedure, hemostasis was achieved using manual compression after removal of all catheters, wires, and sheaths. INTERVENTIONAL CONCLUSIONS: Severe mid LAD lesion s/p successful PCI with SYNERGY 2.5x20 mm RIZWAN. Severe LPDA diffuse disease s/p successful PCI with two SYNERGY 2.25x20 mm and 2.5x24 mm overlapping RIZWAN. IVUS of proximal to mid moderate LCX disease which revealed significant disease with MLA of 2.1 mm2 in the tightest lesion. Successful PCI of proximal to mid LCX bifurcation lesion by provisional stenting with SYNERGY 3.0x16 mm RIZWAN. RECOMMENDATIONS AFTER INTERVENTIONAL PROCEDURE: Aspirin 81 mg QDAY indefinitely. Clopidogrel 75 mg QDAY for 12 months minimum given drug eluting stent placement. Aggressive modification of atherosclerotic risk factors. Staged revascularization for the right common Iliac A. Horacio Rios MD 11/21/2016 I was present for the critical portion of the procedure, and either performed or directly supervised all critical parts of the procedure. Tyrel Jimenez MD Procedure Note Horacio Rios - 02/28/2018 [facility] Cardiac Catheterization Procedure Note Patient: Chapito Skinner Age: 66 y.o. Date of : 1950 Date of Admission: 11/21/16 Procedure Date: 11/21/16 FELLOW / HARD HAT DIVER: Horacio Rios; Siddharth Marshall ATTENDING PHYSICIAN: Tyrel Jimenez PREVIOUS STRESS STUDIES WITHIN 6 MONTHS: Y Treadmill/Regadenoson MPI in 10/2016: Myocardial perfusion imaging is normal. Overall left ventricular systolicfunction was normal without regional wall motion abnormalities, asdescribed above. The type and distribution of the scintigraphic findingsis consistent with a normal myocardial perfusion scan, without evidence of myocardial ischemia. No previous studywas available for comparison. At around 5 minutes through the exercise phase, rare PVCs were noted aswell as ST depression in leads V4- V6. Patient stopped the stress testbecause of leg fatigue. There was no chest pain. There was at least 1-1-1/[address] depression in leads v4-v6,lead [address] segment changes resolved at about 6 minutes into therecovery phase. Stress Test or Coronary Imaging within Past 6 Months: I. Type:pharmacologic nuclear II. Findings: positive with intermediate-risk findings: Details: NormalMPI but abnormal stress EKG. DIAGNOSTIC APPROPRIATENESS CRITERIA: 50 HISTORY: Patient is a 66 y.o. male with history of HTN, DM,hypothyroidism and bicuspid aortic valve with s/p 23 mm Magnapericardial valve in 2012 who has recently had chest pain on exertion. Heunderwent a stress test which had abnormal EKG portion. He is therefore referred to the cardiac catheterization lab todelineate the coronary anatomy. We discussed the case with the primary floor steward/stewardess, Dr. Quintana whoreported that the patient takes SL nitroglycerin on a regular basis,therefore considered as second antianginal medication along withbetablocker. ACCESS SITE(S): right femoral artery, as the right radial pulse is 1+and barely palpable. PROCEDURAL OVERVIEW: After obtaining informed consent and positioning the patient on thecatheterization table, a timeout was performed to confirm the patient s name, date of , and procedure. Sedation was initiated and thepatient was prepped and draped using standard sterile technique. Lidocaine was used for local anesthesia over theaccess site, after which the vessel was accessed. There was trouble goingup with the J wire, hence the dilator was placed in the groin and a Wholeywire was used to cross the right common Iliac into the distal aorta. Then a 6F sheath was placed using themodified Seldinger technique. Access was uncomplicated. Coronaryangiography was performed using JL4, JR4 6F catheter(s). Intervention wasperformed as described in PCI report. At the conclusion of the procedure, hemostasis was achieved using manualcompression after removal of all catheters, wires, and sheaths. COMPLICATIONS: None HEMODYNAMIC FINDINGS: AO(S/D/M): 138/100/31 LV Systolic: 146 LVEDP: 19 ANGIOGRAPHY: i. Left main: Large vessel with no evidence of disease. ii. LAD: Moderate size vessel with proximal 30% disease, mid has along severe 80% disease segment, distal vessel has minimal disease. LADgives 3 diagonals small to moderate size with minimal disease. iii. LCx: Dominant vessel with proxima to mid moderate 60-70% diseaseinvolving both OM1 and OM2. It is left dominant and LPDA has diffusesevere disease upto 80%. OM1 and OM2 are moderate size with mild diseasein the entire vessels upto 30%. OM3 has minimal disease. iv. RCA: Small non dominant vessel with minimal disease. Femoral angiography: Right SABINO: Severe disease with a gradient of more than 30 mm Hg. Right EIA and TACKING STITCH REMOVER: Mild to moderate disease. Left SABINO, EIA and TACKING STITCH REMOVER: Mild to moderate disease. DOMINANCE: Left DIAGNOSTIC INTERPRETATIONS: Severe mid LAD 80% disease. Severe LPDA 80% disease. Moderate proximal and mid LCX disease. Severe right Common Iliac artery disease. RECOMMENDATIONS AFTER DIAGNOSTIC CATHETERIZATION: Multivessel PCI of LAD, LPDA. IVUS of proximal LCX for evaluation of the lesion characteristics. APPROPRIATENESS CRITERIA FOR PCI: 22 PCI INDICATION: stable angina with abnormal stress test PCI STATUS: elective PCI PROCEDURAL MODIFIERS: none LESION UNDERGOING INTERVENTION : PCI TO THE mid LAD. 1. LESION MODIFIERS: None 2. RESTENOSIS?:no 3. ACCESS: The existing sheath was used for the PCI procedure. 4. GUIDE: XB 3.5 6F guide catheter was used for intervention. 5. ORAL ANTIPLATELET THERAPY: Aspirin and clopidogrel 6. INTRAVENOUS ANTICOAGULATION DURING PCI: Heparin 7. INTERVENTIONAL WIRE: A Prowater wire was advanced beyond the lesioninto the distal vessel. 8. PROCEDURE DETAILS:Balloon angioplasty was performed using a Emerge2.5x15 mm balloon. After angioplasty, a SYNERGY 2.5x20mm drug elutingstent was deployed across the lesion. 9. After intervention, the 80% stenosis was reduced to 0% with DEBBIE-3 flowprior to PCI and DEBBIE-3 flow after PCI. LESION UNDERGOING INTERVENTION : PCI TO THE LPDA. 10. LESION MODIFIERS: None 11. RESTENOSIS?:no 12. ACCESS: The existing sheath was used for the PCI procedure. 13. GUIDE: XB 3.5 6F guide catheter was used for intervention. 14. ORAL ANTIPLATELET THERAPY: Aspirin and clopidogrel 15. INTRAVENOUS ANTICOAGULATION DURING PCI: Heparin 16. INTERVENTIONAL WIRE: A Prowater wire was advanced beyond the lesioninto the distal vessel. 17. PROCEDURE DETAILS:Direct stenting with a SYNERGY [id number] drugeluting stent was deployed across the distal vessel which has lesion. Poststenting there continued to be diffuse disease proximal to the stent whichwas treated with a SYNERGY 2.5x24 mm RIZWAN overlapping with the distal stent. An NC Emerge 2.0x12 balloon wasused to post dilate the distal stent which had a waist. 18. After intervention, the 80% stenosis was reduced to 0% with DEBBIE-3flow prior to PCI and DEBBIE-3 flow after PCI. LESION UNDERGOING INTERVENTION : PCI TO THE proximal-mid LCX. 19. LESION MODIFIERS: Bifurcation lesion. 20. RESTENOSIS?:no 21. ACCESS: The existing sheath was used for the PCI procedure. 22. GUIDE: XB 3.5 6F guide catheter was used for intervention. 23. ORAL ANTIPLATELET THERAPY: Aspirin and clopidogrel 24. INTRAVENOUS ANTICOAGULATION DURING PCI: Heparin 25. INTERVENTIONAL WIRE: A Unii wire was advanced beyond the lesioninto the distal vessel. 26. PROCEDURE DETAILS: IVUS was performed with a ISIS catheter to assessthe severity of the lesion and length of the lesion. It showed diffuselydiseased proximal to mid LCX with the MLA of 2.1 mm2 at the tightestlocation and involving across both obtuse marginals. At this point a Premise wire was used to wire down theOM1 in the plan of provisional stenting. Balloon angioplasty was performedusing a Emerge 2.5x15 mm balloon. After angioplasty, a SYNERGY 3.0x16 mmdrug eluting stent was deployed across the lesion. Post stent deployment the obtuse marginals appeared tostay un compromised with good DEBBIE 3 flow. 27. After intervention, the 70% stenosis was reduced to 0% with DEBBIE-3flow prior to PCI and DEBBIE-3 flow after PCI. COMPLICATIONS: none HEMOSTASIS: At the conclusion of the procedure, hemostasis was achievedusing manual compression after removal of all catheters, wires, andsheaths. INTERVENTIONAL CONCLUSIONS: Severe mid LAD lesion s/p successful PCI with SYNERGY 2.5x20 mm RIZWAN. Severe LPDA diffuse disease s/p successful PCI with two SYNERGY 2.25x20 mmand 2.5x24 mm overlapping RIZWAN. IVUS of proximal to mid moderate LCX disease which revealed significantdisease with MLA of 2.1 mm2 in the tightest lesion. Successful PCI of proximal to mid LCX bifurcation lesion by provisionalstenting with SYNERGY 3.0x16 mm RIZWAN. RECOMMENDATIONS AFTER INTERVENTIONAL PROCEDURE: Aspirin 81 mg QDAY indefinitely. Clopidogrel 75 mg QDAY for 12 months minimum given drug eluting stentplacement. Aggressive modification of atherosclerotic risk factors. Staged revascularization for the right common Iliac A. Horacio Rois MD 11/21/2016 I was present for the critical portion of the procedure, and eitherperformed or directly supervised all critical parts of the procedure. Tyrel Jimenez MD Aster Quintana MD CARDIAC CASH MANAGEMENT COORDINATOR RAD IANT * PT-INR [facility] (11/13/2016 8:32 AM EXECUTIVE COACH) Only the most recent of7 resultswithin the time period is included. [facility] INR 1.0 [facility]) Comment: Reference Range 0.9-1.1 Moderate-intensity Warfarin Therapy 2.0-3.0 Higher-intensity Warfarin Therapy 3.0-4.0 PT 9.6 9.0 - 11.5 sec [facility]) Comment: For more information on this test, go to: http://education.Float: [place]/faq/ZDD681 REPORT COMMENT: IS PATIENT ON HEPARIN, ARGATROBAN OR DABIGATRAN?->N FASTING:YES Test Performed at: [facility] [id number] KATT CARSON MD Blood specimen (specimen) BLOOD SPECIMEN / Unknown 11/13/2016 8:32 AM EXECUTIVE COACH 11/13/2016 8:33 AM EXECUTIVE COACH Narrative [facility] ([facility]) - 11/14/2016 1:00 AM EXECUTIVE COACH Is patient on Heparin, Argatroban or Dabigatran?->N Aster Quintana MD LAB - COAGULATION OR DERABLES [facility] ([facility]) * (ABNORMAL) CBC W/O DIFFERENTIAL (11/13/2016 8:32 AM EXECUTIVE COACH) Only the most recent of11 resultswithin the time period is included. [facility] WBC 5.1 3.8 - 10.8 Thousand/u L [facility] ([facility]) RBC 4.91 4.20 - 5.80 Million/uL [facility]) Hemoglobin 14.3 13.2 - 17.1 g/dL [facility]) Hematocrit 43.2 38.5 - 50.0 % [facility]) MCV 88.0 80.0 - 100.0 fL [facility]) MCH 29.1 27.0 - 33.0 pg [facility]) MCHC 33.0 32.0 - 36.0 g/dL [facility]) RDW-CV 15.3(H) 11.0 - 15.0 % [facility]) Platelet 141 140 - 400 Thousand/u L [facility]) MPV 8.9 7.5 - 12.5 fL [facility]) Comment: Test Performed at: [facility] [address] [address] [place] [address] EDGAR MOORE DO,MPH Blood specimen (specimen) BLOOD SPECIMEN / Unknown 11/13/2016 8:32 AM EXECUTIVE COACH 11/13/2016 8:33 AM EXECUTIVE COACH Aster Quintana MD LAB - HEMATOLOGY ORD ERABLES [facility] ([facility]) * PROC CARDIOLYTE STRESS TEST (11/12/2016 9:39 AM EXECUTIVE COACH) Narrative [facility] RADIOLOGY - 11/12/2016 9:39 AM EXECUTIVE COACH Patient Name: Chapito Skinner : 1950 CPT Codes: 77737 Study:Pharmacologic Stress Myocardial Perfusion-One Day Protocol Date of Service: 11/07/2016 Referring Physician: Mariano This report reflects our interpretive findings of the results of the myocardial perfusion imaging and the stress electrocardiogram combined with the patient s age, sex, symptoms, and coronary risk factors. The study was performed in order to evaluate cardiac risk in this 66 y.o. year old male with history of aortic stenosis and dyspnea on exertion. Pharmacologic Stress: Pharmacologic stress was performed with the I.V. injection of 0.4 mg of Lexiscan over 10 seconds, followed 1 minute later with stress sestamibi dose. The heart rate was 69 BPM at baseline and peaked at 106 BPM during the infusion. The resting blood pressure was 122/70 and was 122/60 4 minutes after infusion of the pharmacologic agent. The resting ECG showed normal sinus rhythm. The stress ECG revealed No ECG changes. The patient experienced dyspnea during the procedure. The patient had a submaximal exercise ECG which preceded the Lexiscan stress study. The ECG did show evidence of ST depression (please see Dr. Harrison's note for a detail description). Myocardial Perfusion Imaging: SPECT myocardial perfusion imaging was performed at rest 35 minutes following the I.V. injection of 12.8 mCi Tc-99m Sestamibi. At peak pharmacologic effect, the patient was given an I.V. injection of 36.7 mCi Tc-99m Sestamibi. Gated post- stress SPECT imaging was performed 60 minutes after stress. The overall quality of the study is good . TID was 0.91 and the lung-heart ratio was 0.37, both of which are normal. SPECT imaging revealed normal myocardial perfusion at both rest and stress, without evidence of myocardial ischemia. There were no significant signs of attenuation. The global ejection fraction was 68%. Regional wall motion analysis showed normal left ventricular wall motion and thickening. Conclusion: Myocardial perfusion imaging is normal. Overall left ventricular systolic function was normal without regional wall motion abnormalities, as described above. The type and distribution of the scintigraphic findings is consistent with a normal myocardial perfusion scan, without evidence of myocardial ischemia. No previous study was available for comparison. Electronically signed by: Aftab Bustos MD Date of Interpretation: 11/08/2016 Date of Final Report: 11/08/2016 Procedure Note ProviderAle MD - 02/28/2018 Patient Name: Chapito Skinner : 1950 CPT Codes: 02270 Study:Pharmacologic Stress Myocardial Perfusion-One Day Protocol Date of Service: 11/07/2016 Referring Physician: Mariano This report reflects our interpretive findings of the results of themyocardial perfusion imaging and the stress electrocardiogram combinedwith the patient s age, sex, symptoms, and coronary risk factors. Thestudy was performed in order to evaluate cardiac risk in this 66 y.o. year old male with history of aortic stenosisand dyspnea on exertion. Pharmacologic Stress: Pharmacologic stress was performed with the I.V. injection of 0.4 mg ofLexiscan over 10 seconds, followed 1 minute later with stress sestamibidose. The heart rate was 69 BPM at baseline and peaked at 106 BPM duringthe infusion. The resting blood pressure was 122/70 and was 122/60 4 minutes after infusion of thepharmacologic agent. The resting ECG showed normal sinus rhythm. Thestress ECG revealed No ECG changes. The patient experienced dyspnea duringthe procedure. The patient had a submaximal exercise ECG which preceded the Lexiscan stress study. The ECGdid show evidence of ST depression (please see Dr. Harrisno's note for adetail description). Myocardial Perfusion Imaging: SPECT myocardial perfusion imaging was performed at rest 35 minutesfollowing the I.V. injection of 12.8 mCi Tc-99m Sestamibi. At peakpharmacologic effect, the patient was given an I.V. injection of 36.7 mCiTc-99m Sestamibi. Gated post-stress SPECT imaging was performed 60 minutes after stress. The overall quality of the study is good . TID was 0.91 and the lung-heartratio was 0.37, both of which are normal. SPECT imaging revealed normalmyocardial perfusion at both rest and stress, without evidence ofmyocardial ischemia. There were no significant signs of attenuation. The global ejection fraction was 68%. Regional wall motion analysis showednormal left ventricular wall motion and thickening. Conclusion: Myocardial perfusion imaging is normal. Overall left ventricular systolicfunction was normal without regional wall motion abnormalities, asdescribed above. The type and distribution of the scintigraphic findingsis consistent with a normal myocardial perfusion scan, without evidence of myocardial ischemia. No previous studywas available for comparison. Electronically signed by: Aftab Bustos MD Date of Interpretation: 11/08/2016 Date of Final Report: 11/08/2016 Aster Quintana MD ECG ORDERABLES [facility] RADIOLOGY * US RETROPERITONEAL LIMITED (12/02/2015 11:01 AM EXECUTIVE COACH) Anatomical Region Laterality Modality Abdomen Other Impressions 12/02/2015 12:03 PM EXECUTIVE COACH IMPRESSION: No evidence of abdominal aortic aneurysm. This report was electronically signed by LISA BECKER M.D. on 12/02/2015 12:03 PM . Narrative 12/02/2015 12:03 PM EXECUTIVE COACH Exam: Retroperitoneal sonogram, Limited DATE: 12/02/2015 HISTORY: Abdominal aortic aneurysm screening COMPARISON: No prior ultrasound FINDINGS: The abdominal aorta measures 2.5 cm AP by 2.6 cm transverse. The mid abdominal aorta measures 1.7 cm AP by 1.6 cm transverse. The distal abdominal aorta measures 1.2 cm AP by 1.3 cm transverse. The left common iliac artery measures 0.8 cm AP by 0.9 cm transverse. The right common iliac artery measures 0.7 cm AP by 0.7 cm transverse. Atherosclerotic disease is seen throughout the course of the visualized aorta. Procedure Note Lisa Becker MD - 12/21/2017 Exam: Retroperitoneal sonogram, Limited DATE: 12/02/2015 HISTORY: Abdominal aortic aneurysm screening COMPARISON: No prior ultrasound FINDINGS: The abdominal aorta measures 2.5 cm AP by 2.6 cm transverse. The midabdominal aorta measures 1.7 cm AP by 1.6 cm transverse. The distalabdominal aorta measures 1.2 cm AP by 1.3 cm transverse. The left commoniliac artery measures 0.8 cm AP by 0.9 cm transverse. The right common iliac artery measures 0.7 cm AP by 0.7 cmtransverse. Atherosclerotic disease is seen throughout the course of thevisualized aorta. IMPRESSION IMPRESSION: No evidence of abdominal aortic aneurysm. This report was electronically signed by LISA BECKER M.D. on 12/02/201512:03 PM . Aster Quintana MD US ORDERABLES * ECHO 2D ONLY WO COLOR OR DOPPLER (11/28/2015 11:10 AM EXECUTIVE COACH) Only the most recent of3 resultswithin the time period is included. Anatomical Region Laterality Modality Other Narrative 11/28/2015 11:10 AM EXECUTIVE COACH NAME: Chapito Skinner : 1950 AGE: 65 y.o. SEX: male Referring Physician: Aster Quintana MD [address] [facility] [address] [place] [address] Ordering Physician: Primary Care Physician: Jean Lockett Date of Test: 11/25/15 TAPE#: digital Balloon Pilot: ds Height: 5' 11 (180.3 cm) Weight: 181 lb (82.101 kg) BSA: Introduction: Chapito Skinner is a 65 y.o. male presenting with Prosthetic Aortic Valve. Indication: Heart valve followup Chamber Measurements LV Internal Dimension Systole (cm): 2.4 cm LV Internal Dimension Diastole (cm): 4.8 cm Septal Thickness (cm): 1.2 cm Posterior Wall Thickness (cm): 1.1 cm LV Systolic Function: Normal Aortic Root Measurement (cm): 3.3 cm Left Atrium Measurement (cm): 4.8 cm Right Atrial Size: Normal RV Size: Normal Global RV function: Normal Aortic Valve AV Max (m/s): 2.3 m/s LVOT Diameter (cm): 2.2 cm LVOT max (m/s): 1.8 m/s Normal Aortic Valve Velocities: Yes Mitral Valve Mitral Valve Velocities: E (m/s): 1 m/s A (m/s): 0.3 m/s Deceleration Time (msec): 224 msec Tissue Doppler Velocities: Diastolic Function: Normal Tricuspid Valve Max Tricuspid Valve Velocity (m/s): 0.4 m/s Normal Tricuspid Valve Velocities: Yes Pulmonic Valve Max Pulmonic Valve Velocity (m/s): 0.8 m/s Normal Pulmonic Valve Velocities: Yes OVERALL INTERPRETATION: - Technically Good echocardiogram. - Normal LV size and systolic function. Ejection fraction = 55%. - Normal RV size and systolic function. - Normal left atrium. - Normal right atrium. - Mild left ventricular hypertrophy. - Normal prosthetic aortic valve velocities, with a peak gradient of 21 mmHg, mean gradient of 10 mmHg, calculated AV orifice of 1.5 cm2, and no aortic regurgitation. - Normal mitral valve structure and velocities. Mild mitral regurgitation. - Normal LV diastolic function. - Normal tricuspid valve structure and velocities. Mild tricuspid regurgitation. - Calculated right ventricular systolic pressure of <35 mmHg which is normal. - Normal pulmonary valve structure and velocities. Mild pulmonic regurgitation. Supervising Physician: Alejandro Garcia M.D. Reading Physician: Aster Quintana MD Procedure Note Provider, MD Ale - 02/28/2018 NAME: Chapito Skinner : 1950 AGE: 65 y.o. SEX: male Referring Physician: Aster Quintana MD [address] [facility] [address] [place] [address] Ordering Physician: Primary Care Physician: Jean Lockett Date of Test: 11/25/15 TAPE#: digital Balloon Pilot: ds Height: 5' 11 (180.3 cm) Weight: 181 lb (82.101 kg) BSA: Introduction: Chapito Skinner is a 65 y.o. male presenting with ProstheticAortic Valve. Indication: Heart valve followup Chamber Measurements LV Internal Dimension Systole (cm): 2.4 cm LV Internal Dimension Diastole (cm): 4.8 cm Septal Thickness (cm): 1.2 cm Posterior Wall Thickness (cm): 1.1 cm LV Systolic Function: Normal Aortic Root Measurement (cm): 3.3 cm Left Atrium Measurement (cm): 4.8 cm Right Atrial Size: Normal RV Size: Normal Global RV function: Normal Aortic Valve AV Max (m/s): 2.3 m/s LVOT Diameter (cm): 2.2 cm LVOT max (m/s): 1.8 m/s Normal Aortic Valve Velocities: Yes Mitral Valve Mitral Valve Velocities: E (m/s): 1 m/s A (m/s): 0.3 m/s Deceleration Time (msec): 224 msec Tissue Doppler Velocities: Diastolic Function: Normal Tricuspid Valve Max Tricuspid Valve Velocity (m/s): 0.4 m/s Normal Tricuspid ValveVelocities: Yes Pulmonic Valve Max Pulmonic Valve Velocity (m/s): 0.8 m/s Normal Pulmonic ValveVelocities: Yes OVERALL INTERPRETATION: - Technically Good echocardiogram. - Normal LV size and systolic function. Ejection fraction = 55%. - Normal RV size and systolic function. - Normal left atrium. - Normal right atrium. - Mild left ventricular hypertrophy. - Normal prosthetic aortic valve velocities, with a peak gradient of 21mmHg, mean gradient of 10 mmHg, calculated AV orifice of 1.5 cm2, and noaortic regurgitation. - Normal mitral valve structure and velocities. Mild mitralregurgitation. - Normal LV diastolic function. - Normal tricuspid valve structure and velocities. Mild tricuspidregurgitation. - Calculated right ventricular systolic pressure of <35 mmHg which isnormal. - Normal pulmonary valve structure and velocities. Mild pulmonicregurgitation. Supervising Physician: Alejandro Garcia M.D. Reading Physician: Aster Quintana MD Aster Quintana MD ECHOCARDIOGRAPHY RAD IANT * LAB HISTORICAL RESULTS-ONBASE (11/20/2012) 11/20/2012 Narrative [facility] - 11/24/2012 11:55 AM EXECUTIVE COACH Historical Provider LAB - CHEMISTRY O RDERABLES [facility] [address] * PHOSPHORUS BLOOD (11/08/2012 6:22 AM EXECUTIVE COACH) Only the most recent of8 resultswithin the time period is included. Phosphorus 2.6 2.3 - 4.7 mg/dL [facility] Serum 11/08/2012 6:22 AM EXECUTIVE COACH 11/08/2012 6:28 AM EXECUTIVE COACH Marcia Turnerelkevale MACHINE OPERATOR [employer]ER-DIFFUSER OPERATOR LAB - FAMILY PARTNER RY ORDERABLES Performing Organization Address [facility] [address]/[facility] Co de Phone Number [address] [phone] * MAGNESIUM BLOOD (11/08/2012 6:22 AM EXECUTIVE COACH) Only the most recent of8 resultswithin the time period is included. Magnesium 2.0 1.6 - 2.6 mg/dL [facility] Serum 11/08/2012 6:22 AM EXECUTIVE COACH 11/08/2012 6:28 AM EXECUTIVE COACH Marcia Andradekaroline MACHINE OPERATOR HOP PICKER-DIFFUSER OPERATOR LAB - FAMILY PARTNER RY ORDERABLES Performing Organization Address [facility] [address]/[facility] de Phone Number [address] [phone] * XR CHEST 1VW PORTABLE (11/07/2012 2:55 PM EXECUTIVE COACH) Only the most recent of6 resultswithin the time period is included. Anatomical Region Laterality Modality Chest Other Impressions 11/07/2012 4:46 PM EXECUTIVE COACH Impression: Decreased left basilar atelectasis versus airspace disease. Report dictated by Benny Roberson M.D. (resident). I, Dr. MARIBEL KLINE M.D. have personally reviewed and interpreted this examination/study. This report was electronically signed by MARIBEL KLINE M.D. on 11/07/2012 4:46 PM . Narrative 11/07/2012 4:46 PM EXECUTIVE COACH Exam: Portable chest, AP view History: chest tube removal Comparison: 11/07/2012 at 0534 Findings: Left basilar atelectasis versus airspace disease is decreased. There is no pneumothorax. The cardiac and mediastinal silhouettes are normal. The osseous structures are intact. 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 Procedure Note Maribel Kline MD - 12/22/2017 Exam: Portable chest, AP view History: chest tube removal Comparison: 11/07/2012 at 0534 Findings: Left basilar atelectasis versus airspace disease is decreased.There is no pneumothorax. The cardiac and mediastinal silhouettes arenormal. The osseous structures are intact. 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 IMPRESSION Impression: Decreased left basilar atelectasis versus airspace disease. Report dictated by Benny Roberson M.D. (resident). I, Dr. MARIBEL KLINE M.D. have personally reviewed and interpreted thisexamination/study. This report was electronically signed by MARIBEL KLINE M.D. on11/07/2012 4:46 PM . Yair Martinez MD DIAGNOSTIC IMAGING O RDERABLES * (ABNORMAL) CALCIUM IONIZED WHOLE BLOOD (11/05/2012 10:00 AM EXECUTIVE COACH) Only the most recent of11 resultswithin the time period is included. [facility] Ionized Calcium Whole Blood 1.36 MMOL/L [facility] Whole Blood PH 7.41 7.35 - 7.45 [facility] Adjusted Ionized Calcium 1.37(H) 1.19 - 1.34 mmol/L [facility] 11/05/2012 10:0 0 AM EXECUTIVE COACH 11/05/2012 10:12 AM EXECUTIVE COACH Yair Martinez MD LAB - CHEMISTRY RAJANI NARANJO [facility] Organization Address City/State/ZIP Co de Phone Number [address] [phone] * (ABNORMAL) SVO2 FOR RECALIBRATION (11/05/2012 6:45 AM EXECUTIVE COACH) Only the most recent of4 resultswithin the time period is included. [facility] SVO2 for Recalibration 48.8(L) 66.0 - 77.0 % [facility] 11/05/2012 6:45 AM EXECUTIVE COACH 11/05/2012 6:57 AM EXECUTIVE COACH Yair Martinez MD LAB - CHEMISTRY ORDE RABLES [address] [phone] * (ABNORMAL) BLOOD GASES ART (11/05/2012 1:00 AM EXECUTIVE COACH) Only the most recent of11 resultswithin the time period is included. pH Arterial 7.44 7.35 - 7.45 [facility] pCO2 Arterial 40 35 - 45 mmHg [facility] pO2 Arterial 114(H) 71 - 95 mmHg [facility] HCO3 Arterial 27.0(H) 22 - 26 mEq/L [facility] TCO2 Arterial 28.2 25 - 29 mEq/L [facility] Base Excess Arterial 3.1(H) -2 - 2 [facility] Hemoglobin Arterial 8.7(L) 13.5 - 17.5 g/dL [facility] Oxyhemoglobin Arterial 96.0 95.0 - 100.0 % [facility] Carboxyhemoglobin 2.1 0 - 3 % [facility] Methemoglobin 1.5 0 - 2.0 % [facility] FI O2 Arterial 21 [facility] Arterial blood specimen (specimen) BLOOD SPECIMEN / Unknown 11/05/2012 1:00 AM EXECUTIVE COACH 11/05/2012 1:14 AM EXECUTIVE COACH Narrative [facility] - 11/05/2012 1:18 AM EXECUTIVE COACH FiO2->40% Yair Martinez MD LAB - BLOOD GASES OR DERABLES [address] [phone] * PTT [facility] (11/04/2012 6:30 PM EXECUTIVE COACH) Only the most recent of5 resultswithin the time period is included. APTT 37.9 23.0 - 38.4 SECONDS [facility] Comment: SUGGESTED THERAPEUTIC RANGE FOR FULL DOSE I.V. HEPARIN THERAPY FOR VENOUS THROMBOEMBOLISM IS 66.0 - 91.0 SECONDS, WITH AN APTT RATIO OF 2.1 - 3.0. APTT Ratio 1.24 [facility] Plasma specimen (specimen) 11/04/2012 6:30 PM EXECUTIVE COACH 11/04/2012 6:44 PM EXECUTIVE COACH Narrative [facility] - 11/04/2012 7:00 PM EXECUTIVE COACH Is patient on Heparin, Argatroban or Dabigatran?->N Yair Martinez MD LAB - COAGULATION OR DERABLES [facility] [address] [phone] * (ABNORMAL) COMPREHENSIVE METABOLIC PANEL (11/04/2012 6:30 PM EXECUTIVE COACH) BUN 20 7 - 26 mg/dL [facility] Creatinine 1.0 0.6 - 1.2 mg/dL [facility] eGFR by MDRD > 60 ML/MIN [facility] Comment: Chronic kidney disease: <60 ml/min Kidney failure: <15 ml/min Based on BSA of 1.73m2. Sodium 144 136 - 145 mmol/L [facility] Potassium 4.1 3.5 - 4.5 mmol/L [facility] Chloride 105 98 - 107 mmol/L [facility] CO2 22 22 - 29 mmol/L [facility] Glucose 319(H) 70 - 115 mg/dL [facility] Calcium 10.1 8.4 - 10.2 mg/dL [facility] Protein Total 5.8(L) 6.0 - 8.3 g/dL [facility] Albumin 4.2 3.4 - 5.0 g/dL [facility] Bilirubin Total 2.6(H) 0.2 - 1.2 mg/dL [facility] Alkaline Phosphatase 44 40 - 150 Units/L [facility] ALT 12 0 - 55 Units/L [facility] AST 24 5 - 34 Units/L [facility] Anion Gap 21(H) 8 - 18 [facility] BUN/Creatinine Ratio 20 7 - 23 [facility] Osmolality Calculation 297 270 - 300 mOsm/kg [facility] Albumin/Globulin Ratio 2.6(H) 1.1 - 2.3 [facility] Serum 11/04/2012 6:30 PM EXECUTIVE COACH 11/04/2012 6:44 PM EXECUTIVE COACH Yair Martinez MD LAB - CHEMISTRY RAJANI NARANJO Performing Organization Address City/[facility] [address]/[facility] Co de Phone Number [address] [phone] * LACTIC ACID WHOLE BLOOD (11/04/2012 4:15 PM EXECUTIVE COACH) Only the most recent of7 resultswithin the time period is included. Lactic Acid-Stat 2.7 0.5 - 3.4 mmol/L [facility] Blood specimen (specimen) 11/04/2012 4:15 PM EXECUTIVE COACH 11/04/2012 4:35 PM EXECUTIVE COACH Va Santillan MD LAB - CHEMISTRY ORDERABLES Performing Organization Address [facility] [address]/[facility] Co de Phone Number [address] [phone] * CHLORIDE WHOLE BLOOD (11/04/2012 4:15 PM EXECUTIVE COACH) Only the most recent of7 resultswithin the time period is included. Whole Blood CL 107 101 - 111 MMOL/L [facility] 11/04/2012 4:15 PM EXECUTIVE COACH 11/04/2012 4:35 PM EXECUTIVE COACH Va Santillan MD LAB - CHEMISTRY ORDERABLES Performing Organization Address [facility] [address]/[facility] [place] [address], [facility] [phone] * POTASSIUM WHOLE BLD (11/04/2012 4:15 PM EXECUTIVE COACH) Only the most recent of7 resultswithin the time period is included. Potassium 4.2 3.5 - 5.5 mmol/L [facility] 11/04/2012 4:15 PM EXECUTIVE COACH 11/04/2012 4:35 PM EXECUTIVE COACH Va Santillan MD LAB - CHEMISTRY ORDERABLES Performing Organization Address [facility] [address]/[facility] Co de Phone Number [address] [phone] * SODIUM WHOLE BLOOD (11/04/2012 4:15 PM EXECUTIVE COACH) Only the most recent of7 resultswithin the time period is included. Sodium Whole Blood 142 135 - 145 mmol/L [facility] 11/04/2012 4:15 PM EXECUTIVE COACH 11/04/2012 4:35 PM EXECUTIVE COACH Va Santillan MD LAB - CHEMISTRY ORDERABLES Performing Organization Address [facility] Number [address] [phone] * (ABNORMAL) GLUCOSE WHOLE BLOOD (11/04/2012 4:15 PM EXECUTIVE COACH) Only the most recent of7 resultswithin the time period is included. Glucose 235(H) 70 - 110 mg/dL [facility] 11/04/2012 4:15 PM EXECUTIVE COACH 11/04/2012 4:35 PM EXECUTIVE COACH Va Santillan MD LAB - CHEMISTRY ORDERABLES Performing Organization Address [facility] de Phone Number [address] [phone] * (ABNORMAL) FIBRINOGEN CLAUSS (11/04/2012 4:10 PM EXECUTIVE COACH) Only the most recent of2 resultswithin the time period is included. Fibrinogen Clauss 153(L) 170 - 400 mg/dL [facility] 11/04/2012 4:10 PM EXECUTIVE COACH 11/04/2012 4:17 PM EXECUTIVE COACH Va Santillan MD LAB - COAGULATI ON ORDERABLES Performing Organization Address [facility] [address]/[facility] Co de Phone Number [place] [address] [place] [address], [facility] [phone] * TEG CITRATED KAOLIN (CK) (11/04/2012 4:00 PM EXECUTIVE COACH) React-Time 5.0 5 - 10 MIN [facility] K-Time 2.2 1 - 3 MIN [facility] Angle A 62.1 53 - 72 Degrees [facility] MA (CK) 54.8 50 - 70 mm [facility] LY30 0.0 0 - 8 % [facility] G-Clot Strength 6.1 4.5 - 11.0 d/sc [facility] CI-Coagulation Index -0.4 -3.0 to 3.0 [facility] Interpretation TEG SEE BELOW [facility] Comment: TEG KAOLIN SAMPLE TYPE INTERPRETATION TEG VALUE HEMOSTASIS STATE R < than 4 min: Enzymatic hypercoagulability R 11-14min: Low clotting factors R > than 14 min: Very low clotting factors MA 46-54 mm: Low Platelet function MA 41-45 mm: Very low platelet function MA at 40 mm or less: Extremely low plt. function MA > 73 mm: Platelet hypercoagulability R < 4 min and Enzymatic and platelet MA > 73 mm: hypercoagulability Angle < 45 degrees: Low fibrinogen level LY30 at 7.5% or >, Primary fibrinolysis CI < than 1.0: LY30 at 7.5% or >, Secondary fibrinolysis CI > than 3.0: LY30 < 7.5%, Prothrombotic state CI > 3.0: 11/04/2012 4:00 PM EXECUTIVE COACH 11/04/2012 4:14 PM EXECUTIVE COACH Va Santillan MD LAB - BLOOD BAN K ORDERABLES Performing Organization Address [facility] [address]/[facility] Co de Phone Number [address] [phone] * ANTITHROMBIN III ACTIVITY (11/04/2012 11:05 AM EXECUTIVE COACH) Only the most recent of6 resultswithin the time period is included. Pathologist [facility] AT ACT 111 105 - 167 SECONDS [facility] Comment: Therapeutic range for Cardiac earth science laboratory technician is: 200 - 300 seconds line pull ACT < 170 seconds Therapeutic range for EPS lab is: 200 - 240 seconds rebolus at < 160 seconds for procedure line pull ACT < 140 seconds Therapeutic range for CT/Angio Special Procedures is: 200 - 300 seconds line pull ACT < 200 seconds Therapeutic range for Surgery in OR: ACT > 360-999 seconds Patient on Aprotinin ACT > 450-999 seconds 11/04/2012 11:0 5 AM EXECUTIVE COACH 11/05/2012 2:43 PM EXECUTIVE COACH Yair Martinez MD LAB - COAGULATION OR DERABLES Performing Organization Address [facility] [address]/[facility] Co de Phone Number [address] [phone] * TEG PLATELET MAPPING (11/04/2012 11:00 AM EXECUTIVE COACH) React-Time 7.2 5 - 10 MIN [facility] K-Time 2.8 1 - 3 MIN [facility] Angle A 53.6 53 - 72 Degrees [facility] MA (CK) 55.1 50 - 70 mm [facility] LY30 0.0 0 - 8 % [facility] G-Clot Strength 6.1 4.5 - 11.0 d/sc [facility] CI-Coagulation Index -2.8 -3.0 to 3.0 [facility] ADP 29.8 mm [facility] Comment:REFERENCE RANGE: NON E % ADP Inhibition 54.6 % [facility] Comment:REFERENCE RANGE: NON E MA AA 11.3 mm [facility] Comment:REFERENCE RANGE: NON E % AA Inhibition 94.6 % [facility] Comment:REFERENCE RANGE: NON E Interpretation TEG SEE BELOW [facility] Comment: TEG KAOLIN SAMPLE TYPE INTERPRETATION TEG VALUE HEMOSTASIS STATE R < than 4 min: Enzymatic hypercoagulability R 11-14min: Low clotting factors R > than 14 min: Very low clotting factors MA 46-54 mm: Low Platelet function MA 41-45 mm: Very low platelet function MA at 40 mm or less: Extremely low plt. function MA > 73 mm: Platelet hypercoagulability R < 4 min and Enzymatic and platelet MA > 73 mm: hypercoagulability Angle < 45 degrees: Low fibrinogen level LY30 at 7.5% or >, Primary fibrinolysis CI < than 1.0: LY30 at 7.5% or >, Secondary fibrinolysis CI > than 3.0: LY30 < 7.5%, Prothrombotic state CI > 3.0: 11/04/2012 11:0 0 AM EXECUTIVE COACH 11/04/2012 11:56 AM EXECUTIVE COACH Va Santillan MD LAB - BLOOD BAN K ORDERABLES [address] [phone] * (ABNORMAL) BLOOD GASES JOSHUA (11/04/2012 9:00 AM EXECUTIVE COACH) pH Venous 7.38 7.30 - 7.40 [facility] pCO2 Venous 46 40 - 46 mmHg [facility] pO2 Venous 56(H) 35 - 42 mmHg [facility] HCO3 Venous 26.5(H) 22.0 - 26.0 mEq/L [facility] TCO2 Mixed Venous 27.9 25.0 - 29.0 mEq/L [facility] Base Excess Venous 1.6 -2 - 2 [facility] Hemoglobin Mixed Venous 9.4(L) 13 - 17 g/dL [facility] Oxyhemoglobin Mixed Venous 88.7(H) 66.0 - 77.0 % [facility] Carboxyhemoglobin 1.9 0.0 - 3.0 % [facility] Methemoglobin 1.3 0.0 - 2.0 % [facility] FI O2 Mixed Venous [address] [facility] Venous blood specimen (specimen) 11/04/2012 9:00 AM EXECUTIVE COACH 11/04/2012 9:13 AM EXECUTIVE COACH Narrative [facility] - 11/04/2012 9:17 AM EXECUTIVE COACH FIO2->70 Yair Martinez MD LAB - BLOOD GASES OR DERABLES Performing Organization Address City/[facility] [address]/ZIP Co de Phone Number [address] [phone] * (ABNORMAL) URINALYSIS W/MICROSCOPIC NO CULTURE (11/04/2012 7:30 AM EXECUTIVE COACH) Color UA YELLOW STRW,YELLOW [facility] Clarity UA CLEAR CLEAR [facility] Specific [place] Urine 1.019 1.001 - 1.030 [facility] pH UA 6.5 5.0 - 8.0 [facility] Protein UA NEGATIVE <20 mg/dL [facility] Glucose UA NEGATIVE NEGATIVE mg/dL [facility] Ketones NEGATIVE NEGATIVE mg/dL [facility] Bilirubin UA NEGATIVE NEGATIVE mg/dL [facility] Blood UA NEGATIVE NEGATIVE [facility] Nitrite UA NEGATIVE NEGATIVE [facility] Leukocyte Esterase NEGATIVE NEGATIVE [facility] Urobilinogen UA < 2.0 <2.0 mg/dL [facility] RBC Urine 1 0 - 8 /HPF [facility] WBC Urine 1 0 - 2 /HPF [facility] Squamous Epithelial Cells UA < 1 0 - 1 /HPF [facility] Mucus Urine MODERATE(A) NONE SEEN /LPF [facility] Urine specimen (specimen) URINE SPECIMEN COLLECTION, CATHETERIZED / Unknown 11/04/2012 7:30 AM EXECUTIVE COACH 11/04/2012 10:08 AM EXECUTIVE COACH Yair Martinez MD LAB - URINALYSIS ORD ERABLES Performing Organization Address City/[facility] [address]/[facility] Co de Phone Number [address] [phone] * CULTURE URINE (11/04/2012 7:30 AM EXECUTIVE COACH) Only the most recent of2 resultswithin the time period is included. Pathologist [facility] Culture Urine NO GROWTH OF >100 CFU/ML AFTER 48 HOURS. [facility] Urine specimen (specimen) URINE SPECIMEN COLLECTION, CATHETERIZED / Unknown 11/04/2012 7:30 AM EXECUTIVE COACH 11/04/2012 10:07 AM EXECUTIVE COACH Narrative [facility] - 11/06/2012 11:50 AM EXECUTIVE COACH Specimen Type->Urine Yair Martinez MD LAB - MICROBIOLOGY O RDERABLES Performing Organization Address City/[facility] [address]/[facility] Co de Phone Number [address] [phone] * CROSSMATCH RBC LEUKOREDUCED (11/04/2012 6:20 AM EXECUTIVE COACH) Only the most recent of11 resultswithin the time period is included. Blood Product [id number] O+ RBC-WBCD TRANSFUSED 11/04/12 1358 [id number] O+ RBC-WBCD TRANSFUSED 11/04/12 1453 [id number] O+ RBC-WBCD TRANSFUSED 11/04/12 1358 [id number] O+ RBC-WBCD XM COMPATIBLE [id number] O+ RBC-WBCD NOT AVAILABLE [id number] O+ RBC-WBCD TRANSFUSED 11/04/12 1453 [id number] O+ RBC-WBCD TRANSFUSED 11/04/12 1453 [id number] O+ RBC-WBCD TRANSFUSED 11/04/12 1453 [id number] O+ RBC-WBCD XM COMPATIBLE [id number] O+ RBC-WBCD XM COMPATIBLE [id number] O+ RBC-WBCD TRANSFUSED 11/04/12 2046 [id number] O+ RBC-WBCD XM COMPATIBLE [id number] O+ RBC-WBCD TRANSFUSED 11/04/12 2359 [facility] 11/04/2012 6:20 AM EXECUTIVE COACH 11/04/2012 6:37 AM EXECUTIVE COACH Yair Martinez MD LAB - BLOOD BANK ORD ERABLES Performing Organization Address City/[facility] [address]/ZIP Co de Phone Number [address] [phone] * BLOOD TYPE ABO+ RH PANEL (11/04/2012 6:20 AM EXECUTIVE COACH) Interpretation ABO/Rh Patient O POS [facility] 11/04/2012 6:20 AM EXECUTIVE COACH 11/04/2012 6:37 AM EXECUTIVE COACH Yair Martinez MD LAB - BLOOD BANK ORD ERABLES Performing Organization Address City/[facility] [address]/ZIP Co de Phone Number [address] [phone] * ANTIBODY SCREEN (11/04/2012 6:20 AM EXECUTIVE COACH) Antibody Screen NEGATIVE [facility] 11/04/2012 6:20 AM EXECUTIVE COACH 11/04/2012 6:37 AM EXECUTIVE COACH Yair Martinez MD LAB - BLOOD BANK ORD ERABLES [address] [phone] * PREPARE CRYOPRECIPITATE UNIT (S) (11/04/2012 6:00 AM EXECUTIVE COACH) Blood Product [id number] O+ CRYO-P TRANSFUSED 11/04/12 1631 [facility] 11/04/2012 6:00 AM EXECUTIVE COACH 11/04/2012 6:00 AM EXECUTIVE COACH Yair Martinez MD LAB - BLOOD BANK ORD ERABLES [address] [phone] * PREPARE PLATELET PHERESIS UNIT(S) (11/04/2012 6:00 AM EXECUTIVE COACH) Blood Product [id number] A+ SDP-WBCD TRANSFUSED 11/04/12 1401 [id number] O+ SDP-WBCD TRANSFUSED 11/04/12 1450 [id number] O+ SDP-WBCD TRANSFUSED 11/04/12 1646 [id number] A+ SDP-WBCD TRANSFUSED 11/04/12 1646 [facility] 11/04/2012 6:00 AM EXECUTIVE COACH 11/04/2012 6:00 AM EXECUTIVE COACH Yair Martinez MD LAB - BLOOD BANK ORD ERABLES [address] [phone] * PREPARE FFP UNIT(S) (11/04/2012 6:00 AM EXECUTIVE COACH) Blood Product [id number] A+ FFP-T TRANSFUSED 11/04/12 1448 [id number] A+ FFP-T TRANSFUSED 11/04/12 1448 [id number] A+ FFP-T TRANSFUSED 11/04/12 1612 [id number] A+ FFP-T TRANSFUSED 11/04/12 1612 [id number] O+ FFP-T TRANSFUSED 11/04/12 1448 [id number] O+ FFP-T TRANSFUSED 11/04/12 1448 [id number] O+ FFP-T TRANSFUSED 11/04/12 1612 [id number] O+ FFP-T TRANSFUSED 11/04/12 1612 [facility] 11/04/2012 6:00 AM EXECUTIVE COACH 11/04/2012 6:00 AM EXECUTIVE COACH Yair Martinez MD LAB - BLOOD BANK ORD ERABLES Performing Organization Address City/State/[facility] Co de Phone Number [address] [phone] * CT CHEST WO CONTRAST (11/03/2012 11:20 AM EXECUTIVE COACH) Anatomical Region Laterality Modality Chest Other Impressions 11/03/2012 5:55 PM EXECUTIVE COACH IMPRESSION: 1. Extensive calcification of the aortic valve. No cardiomegaly or aortic dilatation. 2. Multiple pulmonary nodules, mostly pleural-based and ranging from 3-9 mm. These are most likely inflammatory. However, one-year followup CT of the chest without contrast is recommended if the patient is high risk. Report dictated by Truong Russ M.D. (residential treatment counselor). This report was approved by Truong Russ M.D. on 11/03/2012 5:30 PM . I, Dr. Earl LOPEZ M.D. have personally reviewed and interpreted this examination/study. This report was electronically signed by Earl LOPEZ M.D. on 11/03/2012 5:55 PM . Narrative 11/03/2012 5:55 PM EXECUTIVE COACH EXAMINATION: Computed tomography of the chest without contrast HISTORY: aortic stenosis, evaluate aorta TECHNIQUE: Computed tomography of the chest was performed without contrast according to standard protocol. COMPARISON: None FINDINGS: The lungs are clear of consolidation, pleural effusion, or pneumothorax. Multiple pulmonary nodules are mostly pleural-based and range from 3-9 mm. The largest pulmonary nodule measuring 9 mm is in the left lower lobe and abuts the mediastinum (image 31 series 3). The heart size is normal without pericardial effusion. The great vessels are normal in size and configuration. There is extensive calcification of the aortic valve. Atherosclerotic calcification of the aorta and coronary arteries is also visible. The aortic root measures 3.3 cm, and the ascending aorta measures 3.6 cm just proximal to the arch. No lymphadenopathy is identified. The visualized portions of the upper abdomen are normal. No acute osseous abnormality is seen. Degenerative disease of the thoracic spine is present. Procedure Note Hortencia Lopez MD - 12/22/2017 EXAMINATION: Computed tomography of the chest without contrast HISTORY: aortic stenosis, evaluate aorta TECHNIQUE: Computed tomography of the chest was performed without contrastaccording to standard protocol. COMPARISON: None FINDINGS: The lungs are clear of consolidation, pleural effusion, or pneumothorax.Multiple pulmonary nodules are mostly pleural-based and range from 3-9 mm.The largest pulmonary nodule measuring 9 mm is in the left lower lobe andabuts the mediastinum (image 31 series 3). The heart size is normal without pericardial effusion. Thegreat vessels are normal in size and configuration. There is extensivecalcification of the aortic valve. Atherosclerotic calcification of theaorta and coronary arteries is also visible. The aortic root measures 3.3 cm, and the ascending aorta measures3.6 cm just proximal to the arch. No lymphadenopathy is identified. Thevisualized portions of the upper abdomen are normal. No acute osseousabnormality is seen. Degenerative disease of the thoracic spine is present. IMPRESSION IMPRESSION: 1. Extensive calcification of the aortic valve. No cardiomegaly or aorticdilatation. 2. Multiple pulmonary nodules, mostly pleural-based and ranging from 3-9mm. These are most likely inflammatory. However, one-year followup CT ofthe chest without contrast is recommended if the patient is high risk. Report dictated by Truong Russ M.D. (residential treatment counselor). This report was approved by Truong Russ M.D. on 11/03/2012 5:[address] Earl Hamilton M.D. have personally reviewed and interpreted thisexamination/study. This report was electronically signed by Earl LOPEZ M.D. on11/03/2012 5:55 PM . Marcia Badillo MACHINE OPERATOR HOP PICKER-DIFFUSER OPERATOR CT ORDERABLES * XR CHEST 2VW (10/31/2012 4:24 PM EXECUTIVE COACH) Anatomical Region Laterality Modality Chest Other Impressions 10/31/2012 5:07 PM EXECUTIVE COACH Impression: 1. No acute pulmonary disease. Report dictated by Truong Russ M.D. (residential treatment counselor). This report was approved by Truong Russ M.D. on 10/31/2012 5:[address] MARLENY Hamilton M.D. have personally reviewed and interpreted this examination/study. This report was electronically signed by MARLENY KAPLAN M.D. on 10/31/2012 5:07 PM . Narrative 10/31/2012 5:07 PM EXECUTIVE COACH Exam: XR CHEST PA AND LATERAL Date: 10/31/2012 12:00 AM History: pre-op for aortic valve repair Comparison: No prior study is available for comparison. Findings: No focal consolidation, pleural effusion, or pneumothorax is identified. The heart size and mediastinal contours are normal. Degenerative disease of the thoracic spine is present. Procedure Note Marleny Kaplan MD - 12/22/2017 Exam: XR CHEST PA AND LATERAL Date: 10/31/2012 12:00 AM History: pre-op for aortic valve repair Comparison: No prior study is available for comparison. Findings: No focal consolidation, pleural effusion, or pneumothorax is identified.The heart size and mediastinal contours are normal. Degenerative diseaseof the thoracic spine is present. IMPRESSION Impression: 1. No acute pulmonary disease. Report dictated by Trunog Russ M.D. (residential treatment counselor). This report was approved by Truong Russ M.D. on 10/31/2012 5:[address] MARLENY Hamilton M.D. have personally reviewed and interpreted thisexamination/study. This report was electronically signed by MARLENY KAPLAN M.D. on 10/31/20125:07 PM . Yair Martinez MD DIAGNOSTIC IMAGING O RDERABLES * XR PANOREX (10/31/2012 4:24 PM EXECUTIVE COACH) Anatomical Region Laterality Modality Head Other Impressions 10/31/2012 5:49 PM EXECUTIVE COACH Impression: 1. No periapical abscess. 2. Dental caries in the right mandibular first premolar and canine teeth with suggestion of periodontal disease. Report dictated by Truong Russ M.D. (residential treatment counselor). This report was approved by Truong Russ M.D. on 10/31/2012 5:16 PM . Joy, Dr. MARLENY KAPLAN M.D. have personally reviewed and interpreted this examination/study. This report was electronically signed by MARLENY KAPLAN M.D. on 10/31/2012 5:49 PM . Narrative 10/31/2012 5:49 PM EXECUTIVE COACH Exam: XR PANOREX Date: 10/31/2012 12:00 AM History: pre-op workup for aortic valve surgery Comparison: No prior study is available for comparison. Findings: No acute fracture or dislocation of the mandible is identified. A lucency with surrounding sclerosis in the right mandibular body may represent post operative changes. Multiple teeth are missing and multiple dental restorations are present. No periapical abscess is identified. Lucency in the crown of the right mandibular first premolar tooth likely represents a dental cavity. Bone loss around the right mandibular first premolar tooth suggests periodontal disease. Lucency in the crown of the right mandibular canine tooth may represent another dental cavity. Procedure Note Marleny Kaplan MD - 12/22/2017 Exam: XR PANOREX Date: 10/31/2012 12:00 AM History: pre-op workup for aortic valve surgery Comparison: No prior study is available for comparison. Findings: No acute fracture or dislocation of the mandible is identified. A lucencywith surrounding sclerosis in the right mandibular body may represent postoperative changes. Multiple teeth are missing and multiple dentalrestorations are present. No periapical abscess is identified. Lucency in the crown of the right mandibular firstpremolar tooth likely represents a dental cavity. Bone loss around theright mandibular first premolar tooth suggests periodontal disease.Lucency in the crown of the right mandibular canine tooth may represent another dental cavity. IMPRESSION Impression: 1. No periapical abscess. 2. Dental caries in the right mandibular first premolar and canine teethwith suggestion of periodontal disease. Report dictated by Truong Russ M.D. (residential treatment counselor). This report was approved by Truong Russ M.D. on 10/31/2012 5:[address] MARLENY Hamilton M.D. have personally reviewed and interpreted thisexamination/study. This report was electronically signed by MARLENY KAPLAN M.D. on 10/31/20125:49 PM . Yair Martinez MD DIAGNOSTIC IMAGING O RDERABLES * HEPATIC FUNCTION PANEL (10/31/2012 4:13 PM EXECUTIVE COACH) Protein Total 7.1 6.0 - 8.3 g/dL [facility] Albumin 4.0 3.4 - 5.0 g/dL [facility] Bilirubin Total 0.5 0.2 - 1.2 mg/dL [facility] Alkaline Phosphatase 117 40 - 150 Units/L [facility] ALT 19 0 - 55 Units/L [facility] AST 14 5 - 34 Units/L [facility] Albumin/Globulin Ratio 1.3 1.1 - 2.3 [facility] Bilirubin Direct 0.2 0.0 - 0.5 mg/dL [facility] Bilirubin Indirect 0.3 mg/dL [facility] Comment: Unconjugated bilirubin is a calculated value, reference ranges have not been established Venous blood specimen (specimen) 10/31/2012 4:13 PM EXECUTIVE COACH 10/31/2012 4:22 PM EXECUTIVE COACH Yair Martinez MD LAB - CHEMISTRY [facility] Organization Address City/State/ZIP Co de Phone Number [address] [phone] * (ABNORMAL) URINALYSIS REFLEX TO MICROSCOPIC NO CULTURE (10/31/2012 2:36 PM EXECUTIVE COACH) Pathologist [facility] Color UA YELLOW STRW,YELLOW [facility] Clarity UA CLEAR CLEAR [facility] Specific [place] Urine 1.012 1.001 - 1.030 [facility] pH UA 6.5 5.0 - 8.0 [facility] Protein UA NEGATIVE <20 mg/dL [facility] Glucose UA 150(A) NEGATIVE mg/dL [facility] Ketones NEGATIVE NEGATIVE mg/dL [facility] Bilirubin UA NEGATIVE NEGATIVE mg/dL [facility] Blood UA NEGATIVE NEGATIVE [facility] Nitrite UA NEGATIVE NEGATIVE [facility] Leukocyte Esterase NEGATIVE NEGATIVE [facility] Urobilinogen UA < 2.0 <2.0 mg/dL [facility] UA Micro Reflex NO [facility] Urine specimen (specimen) URINE SPECIMEN OBTAINED BY CLEAN CATCH PROCEDURE / Unknown 10/31/2012 2:36 PM EXECUTIVE COACH 10/31/2012 4:22 PM EXECUTIVE COACH Yair Martinez MD LAB - URINALYSIS ORD ERABLES [facility] [address] [phone] * VAS RIGHT ARTERIAL DUPLEX LE (03/28/2012 10:35 AM CDT) Anatomical Region Laterality Modality Other Historical Provider [facility] Care Teams Zigzag Stitcher Relationship Specialty Start Date End Date Chilo Bhatt MD [facility] [place] [address] PCP - General Family Medicine 02/06/22
--- OUTSIDE RECORDS SUMMARY | 2024-11-02 13:27 | XMS_ITS | Clinical Summary ---
Author Organization [facility] Address [address] [place] [id number] Care Team Providers Care Employment Case Manager Name Role Phone Jean Lockett MD Primary Care Provider [phone] Social History Tobacco Use Types Packs/Day Years Used Date Smoking Tobacco: Never Assessed Sex and Gender Information Value Date Recorded Sex Assigned at Not on file Legal Sex Male 5:12 PM CDT Gender Identity Not on file Sexual Orientation Not on file Plan of Treatment Health Maintenance Due Date Last Done Comments Colorectal Cancer Screening Colonoscopy (10 Years) 1950 Hepatitis C 02/15/1968 DTaP, Tdap and Td Vaccines ( 1 - Tdap) 1969 Zoster Vaccines (1 of 2) 02/15/2000 Pneumococcal Vaccine: 65+ Years (1 of 1 - PCV) 2015 COVID-19 Vaccine ( - 2023-2 5 season) 2024 12/03/2020, 11/12/2020 Influenza Adult (#1) 2024 07/14/2017, 08/13/2013, 07/14/2012 RSV Immunization or 60+ Years (1 - 1-dose 75+ series) 2025 Meningococcal B Vaccine Aged Out No l onger eligible based on patient's age to complete this topic Meningococcal Vaccine Aged Out No lorene violeta eligible based on patient's age to complete this topic RSV Immunizations Under 20 Months Aged Out No longer eligible b ased on patient's age to complete this topic Insurance MEDICARE PART A [facility] Care Teams Employment Case Manager Relationship Specialty Start Date End Date Jean Lockett MD [address] [place] [address] PCP - General FAMILY PRACTICE 07/23/24
--- OUTSIDE RECORDS SUMMARY | 2024-11-02 13:27 | XMS_ITS | Referral Summary ---
Author Organization [facility] Address [address] [facility] [place] [address] Care Team Providers Care Retail Wireless Associate Name Role Phone Chilo Bhatt MD Primary Care Provider [phone] Source Comments [facility],non-owned Affiliates and Associated Physician Practices is amultiple site organization consisting of ambulatory clinics and hospital sitesin [place], [place], [place] and [place]. This disclosure is being madepursuant to the Care Everywhere program and may not contain all information available regarding this patient. Last updated 18.[facility] Encounters Date Type Department Care Team Description 10/27/2024 Refill [facility] - Cardiology [address] [facility] [address] [place] [address] Aster Quintana MD Refill Request 10/26/2024 10:02 AM TUBE ROOM SUPERVISOR - 10/26/2024 11:59 PM [facility] Hospital Encounter [facility] LAB OP DRAW STATION [address] [place] [address] Seven Lakhani MD Discharge Disposition: Home or Self Care 10/26/2024 9:37 AM TUBE ROOM SUPERVISOR - 10/26/2024 10:01 AM [facility] Hospital Encounter [facility] EKG/HOLTER [address] [place] [address] Seven Lakhani MD Discharge Disposition: Home or Self Care 10/26/2024 Travel 10/26/2024 9:13 AM TUBE ROOM SUPERVISOR - 10/26/2024 9:36 AM TUBE ROOM SUPERVISOR Hospital Encounter [facility] PAT [address] [place] [phone] Seven Lakhani MD Otolaryngology Discharge Disposition: Home or Self Care 10/22/2024 Telephone [facility] - ENT [address] [place] [phone] September Surgery Scheduling 10/20/2024 Orders Only [facility] - ENT [address] [place] [phone] Seven Lakhani MD Hyperparathyroidism (HCC) 10/20/2024 Telephone [facility] - ENT [address] [place] [phone] Seven Lakhani MD Surgery Scheduling 10/19/2024 Travel 10/19/2024 10:00 AM TUBE ROOM SUPERVISOR Office Visit [facility] - ENT [address] [place] [phone] Carlin Mayo MD Rhinitis, unspecified type (Primary Dx); Nasal congestion; Nasal septal spur 09/11/2024 Travel 09/11/2024 10:30 AM TUBE ROOM SUPERVISOR Office Visit [facility] - ENT [address] [place] [phone] Seven Lakhani MD Primary hyperparathyroidism (HCC) (Primary Dx) 09/06/2024 Refill [facility] - Cardiology [address] [facility] [address] [place] [address] Aster Quintana MD Refill Request from Last 3 Months Allergies No known active allergies Medications * [...] 60 MG tabletIndication s: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 Continue Imdur 60 mg Norvasc 10mg daily, Edarbyclor 40/12.5mg BID, Metoprolol 25mg BID. Log BP and follow up with Dr. Quintana in clinic in january as previously scheduled. Assessment & Plan (10/13/2021 11:53 AM TUBE ROOM SUPERVISOR): Uncontrolled. Continue Imdur 60 mg Norvasc 10mg daily, Stop lisinopril and HCTZ. Start Edarbyclor 40/12.5mg BID, Metoprolol 25mg BID. Log BP and follow up with Mercedes in 1 month, [facility]. Samples of Edarbyclor given and copay card printed for pt to present to his pharmacy. [facility] did send a PA and I asked that he call with copay card. Should be 25 dollars a month with copay card. Coronary artery disease invo lving torres martinez coronary artery of torres martinez heart without angina pectoris 10/13/2021 Assessment & Plan (11/14/2021 11:39 AM TUBE ROOM SUPERVISOR): With PCI in the past in 2017. Doing well and denies chest pain, no ischemia concerns at this time. Continue ASA, statin and BB. PCP to consider SGLT2 give CV benefits, in the future as pt has been struggling with his BS more recently per his report. Assessment & Plan (10/13/2021 11:54 AM TUBE ROOM SUPERVISOR): With PCI in the past in 2017. Doing well and denies chest pain, ischemia concners at this time. Continue ASA, statin and BB. PCP to consider SGLT2 in the future. S/P AVR 10/15/2018 Assessment & Plan (11/14/2021 11:37 AM TUBE ROOM SUPERVISOR): ECHO in January 2020. Stable. Assessment & Plan (10/13/2021 11:46 AM TUBE ROOM SUPERVISOR): ECHO in January 2020. Stable. Aortic valve disorder 10/15/2018 PAD (peripheral artery disease) 03/20/2018 Immunizations Name Administration Dates Next Due [facility] Data primary monoval ent 12+ yr 0.3mL Purple cap 12/03/2020,11/12/2020 FLU VACCINE TRI IIV3 SPLIT IM (FLUVIRIN) 012 INFLUENZA VACCINE, ADJUVANTE D, QUADR. (FLUAD QUADRIVALENT; 65Y+) (AIIV4) 08/15/2021 INFLUENZA VACCINE, CELL CULT URE, TRIV. (FLUCELVAX TRIVALENT; 6MO+), 0.5 ML (CCIIV3) 08/13/2013 INFLUENZA VACCINE, HIGH-DOSE , TRIV. (FLUZONE HIGH-DOSE TRIVALENT; 65Y+) (HD-IIV3) 07/14/2017 Social History Tobacco Use Types Packs/Day Years Used Date Smoking Tobacco: Former Cigarettes Smokeless Tobacco: Never Tobacco Cessation:Counseling Given: Not Answered Comments:Quit smoking in 1999 Alcohol Use Standard Drinks/Week Comments Yes 0 (1 standard drink = 0.6 oz pur e alcohol) occ Sex and Gender Information Value Date Recorded Sex Assigned at Male 10/18/2021 8:10 PM TUBE ROOM SUPERVISOR Gender Identity Male 10/18/2021 8:10 PM TUBE ROOM SUPERVISOR Sexual Orientation Straight 10/18/2021 8: 10 PM TUBE ROOM SUPERVISOR Last Filed Vital Signs Vital Sign Reading Time Taken Comments Blood Pressure 143/69 10/26/2024 9:11 AM TUBE ROOM SUPERVISOR Pulse 60 10/26/2024 9:11 AM TUBE ROOM SUPERVISOR Temperature 36.7 C (98.1 F) 10/26/2024 9:11 AM TUBE ROOM SUPERVISOR Respiratory Rate 16 10/26/2024 9:11 AM TUBE ROOM SUPERVISOR Oxygen Saturation 99% 10/26/2024 9:11 AM TUBE ROOM SUPERVISOR Inhaled Oxygen Concentration - - Weight 78.1 kg (172 lb 1.6 oz) 10/26/2024 9:11 A M TUBE ROOM SUPERVISOR Height 175.3 cm (5' 9 ) 10/26/2024 9:11 AM TUBE ROOM SUPERVISOR Body Mass Index 25.41 10/26/2024 9:11 AM TUBE ROOM SUPERVISOR Plan of Treatment Upcoming Encounters Date Type Department Care Team (Late st Contact Info) Description 11/05/2024 9:23 AM TUBE ROOM SUPERVISOR Hospital Encounter [facility] OP [address] [place] [address] Seven Lakhani MD [address] [place] [address] [place] [address] Surgery General 11/05/2024 9:23 AM TUBE ROOM SUPERVISOR Anesthesia Event [facility] [address] [place] [address] Celeste Peters, COPY LATHE TENDER-PC TECH [address] [facility] [place] [address] 11/05/2024 9:23 AM TUBE ROOM SUPERVISOR - 11/05/2024 1:08 PM TUBE ROOM SUPERVISOR Surgery [facility] OP [address] [place] [phone] Seven Lakhani MD [address] [place], [place] [address]T [place] [phone] Parathyroidectomy 12/07/2024 10:00 AM CDT Office Visit [facility] - ENT [address] [place] [phone] Carlin Mayo MD [address] [place], [place] [address]T [place] [address] 06/29/2025 10:00 AM CDT Ancillary Procedure [facility] - Echosonography [address] [place] [phone] 06/29/2025 11:00 AM CDT Office Visit [facility] - Cardiology [address] [place] [phone] Aster Quintana MD [address] [place] [address] Scheduled Procedures Name Priority Associated Diagnoses Date/Ti me PARATHYROIDECTOMY Hyperparathyroidism (HCC) 11/05/2024 9:23 AM TUBE ROOM SUPERVISOR Procedures Procedure Name Priority Date/Time Associated Diagnosis Comments TYPE + SCREEN PANEL Routine 10/26/2024 1 0:16 AM TUBE ROOM SUPERVISOR Pre-op evaluation CBC W AUTO DIFFERENTIAL Routine 10/26/2024 10:16 AM TUBE ROOM SUPERVISOR Pre-op evaluation BASIC METABOLIC PANEL (CALCIUM TOTAL) Routine 10/26/2024 10:16 AM TUBE ROOM SUPERVISOR Pre-op evaluation EKG 12-LEAD Routine 10/26/2024 9:06 AM TUBE ROOM SUPERVISOR Pre-op evaluation [place] NASAL ENDOSCOPY,DX Routine 10/19/2024 10:29 AM TUBE ROOM SUPERVISOR Nasal congestion Rhinitis, unspecified type Nasal septal spur from Last 3 Months Results * TYPE + SCREEN PANEL (10/26/2024 10:16 AM TUBE ROOM SUPERVISOR) [facility] Antibody Screen NEG 11:04 AM [facility] BLOOD BANK LAB ABO Rh O POS 10/26/2024 11:04 AM [facility] BLOOD BANK LAB Blood Bank BLOOD SPECIMEN / Unknown Lab Venipuncture / Unknown 10/26/2024 10:16 AM TUBE ROOM SUPERVISOR 10/26/2024 10:24 AM TUBE ROOM SUPERVISOR Seven Lakhani MD LAB - BLOOD BANK ORD ERABLES Performing Organization Address [facility]/State/ZIP Co de Phone Number [facility] BLOOD BANK LAB [address] [place] [address], [facility] [phone] * (ABNORMAL) CBC W/ DIFFERENTIAL (10/26/2024 10:16 AM TUBE ROOM SUPERVISOR) [facility] WBC 5.7 4.0 - 10.7 x10E9/L 10/26/2024 10:55 AM [facility] HOSPITAL RBC Count 4.17(L) 4.30 - 5.80 x10E12/L 10/26/2024 10:55 AM [facility] LABORATORY [facility] Hemoglobin 12.7(L) 13.3 - 17.5 g/dL 10/26/2024 10:55 AM [facility] LABORATORY [facility] Hematocrit 37.2(L) 38.7 - 51.1 % 10/26/2024 10:55 AM [facility] MCV 89.2 80.0 - 98.0 fL 10/26/2024 10:55 AM [facility] MCH 30.5 26.7 - 33.6 pg 10/26/2024 10:55 AM [facility] MCHC 34.1 31.7 - 36.3 g/dL 10/26/2024 10:55 AM [facility] RDW-CV 12.6 11.3 - 14.8 % 10/26/2024 10:55 AM [facility] Platelet Count 174 150 - 420 x10E9/L 10/26/2024 10:55 AM [facility] MPV 10.1 7.8 - 11.4 fL 10/26/2024 10:55 AM [facility] Neutrophil % 61.0 41.0 - 74.0 % 10/26/2024 10:55 AM [facility] Lymphocyte % 29.2 17.0 - 47.0 % 10/26/2024 10:55 AM [facility] Monocyte % 6.7 3.0 - 11.0 % 10/26/2024 10:55 AM [facility] Eosinophil % 2.1 0.0 - 7.0 % 10/26/2024 10:55 AM [facility] Basophil % 0.5 0.0 - 1.6 % 10/26/2024 10:55 AM [facility] Immature Granulocytes % 0.5 0.0 - 1.0 % 10/26/2024 10:55 AM [facility] Neutrophil Absolute 3.44 1.60 - 7.50 x10E9/L 10/26/2024 10:55 AM [facility] Lymphocyte Absolute 1.65 1.00 - 4.40 x10E9/L 10/26/2024 10:55 AM [facility] Monocyte Absolute 0.38 0.15 - 1.00 x10E9/L 10/26/2024 10:55 AM [facility] Eosinophil Absolute 0.12 0.00 - 0.60 x10E9/L 10/26/2024 10:55 AM [facility] Basophil Absolute 0.03 0.00 - 0.13 x10E9/L 10/26/2024 10:55 AM [facility] Blood BLOOD SPECIMEN / Unknown Lab Venipuncture / Unknown 10/26/2024 10:16 AM TUBE ROOM SUPERVISOR 10/26/2024 10:30 AM TUBE ROOM SUPERVISOR Seven Lakhani MD LAB - HEMATOLOGY ORD ERABLES [facility] [address] [place] [address], [facility] [phone] * (ABNORMAL) BASIC METABOLIC PANEL (CALCIUM TOTAL) (10/26/2024 10:16 AM TUBE ROOM SUPERVISOR) BUN 15 7 - 26 mg/dL 10/26/2024 11:02 AM [facility] Creatinine 1.04 0.71 - 1.16 mg/dL 10/26/2024 11:02 AM [facility] Sodium 138 136 - 145 mmol/L 10/26/2024 11:02 AM [facility] Potassium 3.8 3.5 - 4.5 mmol/L 10/26/2024 11:02 AM [facility] Chloride 103 98 - 107 mmol/L 10/26/2024 11:02 AM [facility] CO2 27 22 - 29 mmol/L 10/26/2024 11:02 AM [facility] Glucose 123(H) 70 - 99 mg/dL 10/26/2024 11:02 AM [facility] Calcium 10.6(H) 8.4 - 10.2 mg/dL 10/26/2024 11:02 AM [facility] Anion Gap 8 6 - 16 10/26/2024 11:02 AM [facility] BUN/Creatinine Ratio 14 7 - 23 10/26/2024 11:02 AM [facility] Osmolality Calculated 288 275 - 295 mOsm/kg 10/26/2024 11:02 AM [facility] eGFR by CKD-EPI 75(L) >=90 mL/min/1.7 3 m2 10/26/2024 11:02 AM [facility] Blood BLOOD SPECIMEN / Unknown Lab Venipuncture / Unknown 10/26/2024 10:16 AM TUBE ROOM SUPERVISOR 10/26/2024 10:30 AM TUBE ROOM SUPERVISOR Seven Lakhani MD LAB - CHEMISTRY RAJANI NARANJO Performing Organization Address [facility]/ZIP Co de Phone Number [facility] LABORATORY [facility] [address] [place] [address], [place] [phone] * EKG 12-LEAD (10/26/2024 9:06 AM TUBE ROOM SUPERVISOR) Ventricular Rate 54 BPM [facility] MUSE Atrial Rate 54 BPM [facility] MUSE P-R Interval 228 ms [facility] MUSE QRS Duration ms 98 ms [facility] MUSE Q-T Interval ms 410 ms [facility] MUSE QTC Calculation (Bezet) 388 ms [facility] MUSE Calculated P [place] 50 degrees [facility] MUSE Calculated R [place] 63 degrees [facility] MUSE Calculated T [place] 70 degrees [facility] MUSE Interpretation EKG SINUS BRADYCARDIA WITH MARKED SINUS ARRYTHMIA WITH 1ST DEGREE A-V BLOCK RSR' OR QR PATTERN IN V1 SUGGESTS RIGHT VENTRICULAR CONDUCTION DELAY Confirmed by MATTHEW YEE MD ([id number]) on 10/31/2024 10:26:53 PM [facility] MUSE 10/26/2024 9:06 AM TUBE ROOM SUPERVISOR 10/31/2024 10:26 PM TUBE ROOM SUPERVISOR Seven Lakhani MD ECG ORDERABLES Performing Organization Address [facility] Co de Phone Number [facility] [place] NASAL ENDOSCOPY,DX (10/19/2024 10:29 AM TUBE ROOM SUPERVISOR) Narrative Kunal Klein MD - 10/19/2024 10:29 AM TUBE ROOM SUPERVISOR Kunal Klein MD 10/19/2024 10:33 AM Due [...] ORDERABLES from Last 3 Months Care Teams Retail Wireless Associate Relationship Specialty Start Date End Date Chilo Bhatt MD [address] [place] [address] PCP - General Family Medicine 02/06/22
--- OUTSIDE RECORDS SUMMARY | 2024-11-02 13:27 | XMS_ITS | Referral Summary ---
Author Organization [facility] Medical Office Building B Address [address] [place] [address] Care Team Providers Care Diamond Die Maker Name Role Phone Chilo Bhatt MD Primary Care Provider [phone] Allergies No known active allergies Medications cilostazol [...] tablet 3 3 Active blood glucose diagnostic (Obviousuch Verio test strips) strip USE TO TEST [...] complication, without long-term current use of insulin ([facility]) 03/01/2017 Hypercalcemia 10/26/2016 Overview (12/27/2016): Hypercalcemia Hypothyroidism 10/26/2016 Overview (12/27/2016): Hypothyroidism, unspecified Arthritis 09/19/2012 CAD (coronary artery disease) 09/19/2012 HTN (hypertension) 09/19/2012 Hyperlipidemia 09/19/2012 Diplopia 01/25/2011 Social History Tobacco Use Types Packs/Day Years Used Date Smoking Tobacco: Never Smokeless Tobacco: Never Tobacco Cessation:Counseling Given: Not Answered Sex and Gender Information Value Date Recorded Sex Assigned at Not on file Legal Sex Male 2:11 AM A R COLLECTIONS REP Gender Identity Not on file Sexual Orientation Not on file Last Filed Vital Signs Vital Sign Reading Time Taken Comments Blood Pressure 124/76 08/21/2023 9:43 AM A R COLLECTIONS REP Pulse 58 12/02/2019 10:37 AM CDT Temperature - - Respiratory Rate - - Oxygen Saturation - - Inhaled Oxygen Concentration - - Weight 87.1 kg (192 lb) 08/21/2023 9:43 AM A R COLLECTIONS REP Height 172.7 cm (5' 8 ) 08/21/2023 9:43 AM A R COLLECTIONS REP Body Mass Index 29.19 08/21/2023 9:43 AM A R COLLECTIONS REP Plan of Treatment Not on file Procedures Procedure Name Priority Date/Time Associated Diagnosis Comments POCT HEMOGLOBIN A1C Routine 08/21/2023 9 :40 AM A R COLLECTIONS REP Type 2 diabetes mellitus without complication, without long-term current use of insulin ([facility]) ([facility]) BASIC METABOLIC PANEL Routine 06/25/2023 10:26 AM CDT Hypercalcemia DIABETIC EYE EXAM Routine 12/10/2022 LIPID PANEL Routine 08/07/2022 9:30 AM A R COLLECTIONS REP Type 2 diabetes mellitus without complication, without long-term current use of insulin ([facility]) ([facility]) ALBUMIN CREATININE RATIO, URINE Routine 08/07/2022 9:30 AM A R COLLECTIONS REP Type 2 diabetes mellitus without complication, without long-term current use of insulin ([facility]) ([facility]) DIABETES FOOT EXAM Routine 12/06/2017 from Last 3 Months or Most Recently Relevant to Health Maintenance Results * POCT hemoglobin A1c (08/21/2023 9:40 AM A R COLLECTIONS REP) Pathologist [facility] Hemoglobin A1C, POC 7.9 % Blood 08/21/2023 9:40 AM A R COLLECTIONS REP Gracie Perez MD POINT OF CARE TEST [...] MD LAB BLOOD ORDERABLES Final Res ult [facility] [address] [place] [address] * (ABNORMAL) Diabetic Eye Exam (12/10/2022) Historical Provider HEALTH MAINTENANCE Final Result * Albumin Creatinine Ratio, Urine (08/07/2022 9:30 AM A R COLLECTIONS REP) Creatinine, ur 109 20 - 320 mg/dL [...] a diagnostic category. Urine 08/07/2022 9:30 AM A R COLLECTIONS REP 08/07/2022 9:30 AM A R COLLECTIONS REP Narrative [facility] - 08/08/2022 3:00 PM A R COLLECTIONS REP FASTING:YES FASTING: YES us Gracie Perez MD LAB URINE ORDERABLES Final Res ult [facility] [address] [phone] * (ABNORMAL) Lipid panel (08/07/2022 9:30 AM A R COLLECTIONS REP) Cholesterol 112 <200 mg/dL [facility] [...] factors. LDL-C is now calculated using the Cosme-King calculation, which is a validated novel method providing better accuracy than the Friedewald equation in the estimation of LDL-C. Cosme SS et al. JUDY. 2013;310(19): 7242-1669 (http://education.[employer]/faq/MWR483) Chol/HDL ratio 3.4 <5.0 (calc) [facility] Non-HDL, (LDL+VLDL) 79 <130 mg/dL (calc) [facility] Comment: For patients with diabetes plus 1 major ASCVD risk factor, treating to a non-HDL-C goal of <100 mg/dL (LDL-C of <70 mg/dL) is considered a therapeutic option. Blood specimen (specimen) 08/07/2022 9:30 AM A R COLLECTIONS REP 08/07/2022 9:30 AM A R COLLECTIONS REP Narrative [facility] - 08/08/2022 3:00 PM A R COLLECTIONS REP FASTING:YES FASTING: YES Gracie Perez MD LAB BLOOD ORDERABLES Final Res ult [facility] [address] [phone] * DIABETES FOOT EXAM (12/06/2017) Diabetic Foot Exam Abnormal us Historical Provider HEALTH MAINTENANCE Final Result from Last 3 Months or Most Recently Relevant to Health Maintenance Insurance MEDICARE [employer] MEDICARE [facility] HEALTH PLAN [facility] HEALTH PLAN MEDICARE Care Teams Diamond Die Maker Relationship Specialty Start Date End Date Chilo Bhatt MD [address] [place] [address] PCP - General Family Medicine 08/14/21
--- OUTSIDE RECORDS SUMMARY | 2024-11-02 13:28 | XMS_ITS | Clinical Summary ---
Author Organization [employer] Administrative Offices Address [address] [place] [address] Care Team Providers Care Wash Driller Helper Name Role Phone Jean Lockett MD Primary Care Provider [phone] Medications No known medications Social History Tobacco Use Types Packs/Day Years Used Date Smoking Tobacco: Never Assessed Sex and Gender Information Value Date Recorded Sex Assigned at Not on file Legal Sex Male 5:57 AM CUSTOMS GUARD Gender Identity Not on file Sexual Orientation Not on file Last Filed Vital Signs Vital Sign Reading Time Taken Comments Blood Pressure - - Pulse - - Temperature - - Respiratory Rate - - Oxygen Saturation - - Inhaled Oxygen Concentration - - Weight 87.5 kg (193 lb) 10/17/2012 9:55 AM CUSTOMS GUARD Height - - Body Mass Index - - Plan of Treatment Health Maintenance Due Date Last Done Comments DTAP/TDAP/TD VACCINES (1 - Tdap) 1969 COLORECTAL SCREENING 1995 Colorectal Cancer Screening 1995 FIT-DNA Q 3 years 1995 FIT/FOBT Q 1 year 1995 Flex Sig/CT Colonography Q 5 years 1995 PNEUMOCOCCAL VACCINE 65+ YEARS (1 of 1 - PCV) 02/15/20 00 ZOSTER VACCINE (1 of 2) 02/15/2000 INFLUENZA VACCINE (#1) 2024 RSV VACCINE (60+ or ) (1 - 1-dose 75+ series) 2025 Insurance [employer] Care Teams Wash Driller Helper Relationship Specialty Start Date End Date Jean Lockett MD [address] [place] [address] PCP - General Family Practice 08/18/10
== END 2024-11-02 13:12 | disposition home or self-care (01) ==
LOC: CHSIMG 13:13
PROVIDERS: PCP Family Medicine; Visit Provider Nurse Practitioner Family
DX: E21.0 Primary hyperparathyroidism (principal); E87.1 Hypo-osmolality and hyponatremia; R79.89 Other specified abnormal findings of blood chemistry; M85.89 Other specified disorders of bone density and structure, multiple sites
CPT/HCPCS: 77080